=== PATIENT | female | born 1995 | race Caucasian/White ===

== ENCOUNTER 2016-07-10 23:48 | Emergency (ER) | payer SELFPAY ==
[2016-07-11 00:03] VITALS: TEMP 98.1
[2016-07-11] MEDS ORDERED: SODIUM CHLORIDE 0.9% 1,000 ML IV STA (00:23)
--- NOTE | 2016-07-11 00:25 | ED ---
General Adult HPI - General Chief complaint: Arrhythmia/Palpitations Stated complaint: Palpitations/Arm Numbness Time Seen by Provider: 07/11/16 00:11 Source: patient, RN notes reviewed Mode of arrival: ambulatory - History of Present Illness Initial comments: Patient 19-year-old female who presents emergency room today with a chief complaint of palpitations over the last 2 days. She does admit that she's had some symptoms in the past but is never lasted as long or has had them as often. She states that she does have palpitations periodically throughout the day. She states last anywhere from a few seconds to minutes at a time. States that she's noticed some numbness and tingling to her hands bilaterally also down to her feet bilaterally. She states his symptoms also off and on over the last few days it's been occurring more often. She denies any difficulty breathing or shortness of breath. She denies any pain. She denies any other complaints or symptoms. Patient denies any recent fever, chills, shortness of breath, back pain, abdominal pain, nausea or vomiting, numbness or tingling, dysuria or hematuria, constipation or diarrhea, headaches or visual changes, or any other complaints. - Related Data Home Medications Medication Instructions Recorded Confirmed No Known Home Medications [No 07/11/16 07/11/16 Known Home Medications] Allergies Allergy/AdvReac Type Severity Reaction Status Date / Time No Known Allergies Allergy Verified 07/11/16 00:03 Review of Systems ROS Statement: Those systems with pertinent positive or pertinent negative responses have been documented in the HPI. ROS Other: All systems not noted in ROS Statement are negative. Past Medical History Past Medical History: Asthma History of Any Multi-Drug Resistant Organisms: None Reported Past Surgical History: No Surgical Hx Reported Past Psychological History: Anxiety, Depression Smoking Status: Heavy tobacco smoker Past Alcohol Use History: None Reported Past Drug Use History: Marijuana General Exam - General Exam Comments Initial Comments: General: The patient is awake and alert, in no distress, and does not appear acutely ill. Eye: Pupils are equal, round and reactive to light, extra-ocular movements are intact. No nystagmus. There is normal conjunctiva bilaterally. No signs of icterus. Ears, nose, mouth and throat: There are moist mucous membranes and no oral lesions. Neck: The neck is supple, there is no tenderness or JVD. Cardiovascular: There is a regular rate and rhythm. No murmur, rub or gallop is appreciated. Respiratory: Lungs are clear to auscultation, respirations are non-labored, breath sounds are equal. No wheezes, stridor, rales, or rhonchi. Gastrointestinal: Soft, non-distended, non-tender abdomen without masses or organomegaly noted. There is no rebound or guarding present. No CVA tenderness. Bowel sounds are unremarkable. Musculoskeletal: Normal ROM, no tenderness. Strength 5/5. Sensation intact. Pulses equal bilaterally 2+. Neurological: A&O x 3. CN II-XII intact, There are no obvious motor or sensory deficits. Coordination appears grossly intact. Speech is normal. Skin: Skin is warm and dry and no rashes or lesions are noted. Psychiatric: Cooperative, appropriate mood & affect, normal judgment. Course Vital Signs 07/10/16 07/11/16 23:58 01:03 Temperature 98.1 F Pulse Rate 85 Pulse Rate [ 75 Right Radial] Respiratory 16 Rate Blood Pressure 98/62 O2 Sat by Pulse 100 Oximetry EKG Findings - EKG Comments: EKG Findings:: EKG is performed at 013: A 12-lead EKG was performed and interpreted by me as showing the following: Rate is 70, and rhythm is normal sinus. There are normal QRS complexes and normal R-wave progression. ST segments have no elevation or depression, and CT segments appear normal. Medical Decision Making - Medical Decision Making Patient reexamined at this time shows no signs of distress. Patient resting comfortably in the stretcher. Denies any pain. Denies palpitations. Denies any numbness or tingling at this time. Patient labs been reviewed are unremarkable. Negative cardiac enzymes. Patient's EKG shows normal sinus rhythm. Patient advised follow-up family doctor over the next 2 days. Advised to discuss possible Holter monitor advised to increase her oral fluids. Advised return to emergency room if any symptoms increase worsen or for any other concerns. - Lab Data Result diagrams: 07/11/16 00:35 07/11/16 00:35 Lab Results 07/11/16 07/11/16 07/11/16 Range/Units 00:35 00:35 00:35 WBC 9.9 (3.8-10.6) k/uL RBC 4.26 (3.80-5.40) m/uL Hgb 13.5 (11.4-16.0) gm/dL Hct 40.2 (34.0-46.0) % MCV 94.3 (80.0-100.0) fL MCH 31.6 (25.0-35.0) pg MCHC 33.5 (31.0-37.0) g/dL RDW 12.2 (11.5-15.5) % Plt Count 208 (150-450) k/uL Neutrophils % 58 % Lymphocytes % 32 % Monocytes % 6 % Eosinophils % 2 % Basophils % 1 % Neutrophils # 5.7 (1.3-7.7) k/uL Lymphocytes # 3.1 (1.0-4.8) k/uL Monocytes # 0.5 (0-1.0) k/uL Eosinophils # 0.2 (0-0.7) k/uL Basophils # 0.1 (0-0.2) k/uL Sodium 139 (137-145) mmol/L Potassium 3.9 (3.5-5.1) mmol/L Chloride 106 (98-107) mmol/L Carbon Dioxide 26 (22-30) mmol/L Anion Gap 7 mmol/L BUN 13 (7-17) mg/dL Creatinine 0.60 (0.52-1.04) mg/dL Est GFR (MDRD) Af Amer >60 (>60 ml/min/1.73 sqM) Est GFR (MDRD) Non-Af >60 (>60 ml/min/1.73 sqM) Glucose 86 (74-99) mg/dL Calcium 9.3 (8.4-10.2) mg/dL Total Bilirubin 0.4 (0.2-1.3) mg/dL AST 22 (14-36) U/L ALT 41 (9-52) U/L Alkaline Phosphatase 62 (38-126) U/L Troponin I <0.012 (0.000-0.034) ng/mL Total Protein 6.6 (6.3-8.2) g/dL Albumin 4.0 (3.5-5.0) g/dL Disposition Clinical Impression: Palpitations Disposition: HOME SELF-CARE Condition: Good Instructions: Palpitations (ED) Additional Instructions: Please use medication as discussed. Please follow-up with family doctor in the next 2 days of symptoms have not improved. Please return to emergency room if the symptoms increase or worsen or for any other concerns. Time of Disposition: 01:37
[2016-07-11 00:52] LABS: Basophils # (A) 0.1 k/uL (0-0.2); Basophils % (A) 1 %; CH 31.8; CHCM 33.8; Eosinophils # (A) 0.2 k/uL (0-0.7); Eosinophils % (A) 2 %; HCT 40.2 % (34.0-46.0); HGB 13.5 gm/dL (11.4-16.0); Luc # (Auto) 0.23; Luc % (Auto) 2; Lymphocytes # (A) 3.1 k/uL (1.0-4.8); Lymphocytes % (A) 32 %; MCH 31.6 pg (25.0-35.0); MCHC 33.5 g/dL (31.0-37.0); MCV 94.3 fL (80.0-100.0); Mean Platelet Volume 7.3; Monocytes # (A) 0.5 k/uL (0-1.0); Monocytes % (A) 6 %; Neutrophils # (A) 5.7 k/uL (1.3-7.7); Neutrophils % (A) 58 %; RBC 4.26 m/uL (3.80-5.40); RDW 12.2 % (11.5-15.5); WBC 9.9 k/uL (3.8-10.6); WBC (Perox) 10.53
[2016-07-11 01:00] LABS: ALT 41 U/L (9-52); AST 22 U/L (14-36); Alkaline Phosphatase 62 U/L (38-126); Anion Gap 7 mmol/L; Blood Urea Nitrogen 13 mg/dL (7-17); Calcium 9.3 mg/dL (8.4-10.2); Carbon Dioxide 26 mmol/L (22-30); Chloride 106 mmol/L (98-107); Glucose 86 mg/dL (74-99); Non-African American GFR(MDRD) >60 (>60 ml/min/1.73 sqM); Potassium 3.9 mmol/L (3.5-5.1); Sodium 139 mmol/L (137-145); Total Bilirubin 0.4 mg/dL (0.2-1.3); Total Protein 6.6 g/dL (6.3-8.2)
--- NOTE | 2016-07-11 01:12 | XR ---
EXAM: XR Chest, 2 Views. CLINICAL HISTORY: Reason: palpitations for 2 days, numbness to bialteral hands and feet, bilateral nipple peircing infection and bilateral foot pain no injury TECHNIQUE: Frontal and lateral views of the chest. COMPARISON: None FINDINGS: Hardware: None. Lungs/pleura: Normal. No focal consolidation. No pleural effusion or pneumothorax. Heart/mediastinum: Normal. No cardiomegaly. Soft tissues: Unremarkable. Bones: No acute fracture. Upper abdomen: Normal. IMPRESSION: Normal exam.
[2016-07-11 01:45] VITALS: BP 93/47; PULSE 89; RESP 18
== END 2016-07-11 01:45 | disposition home or self-care (01) ==
LOC: EC 23:48
DX: R00.2 Palpitations (principal); R20.0 Anesthesia of skin; F17.200 Nicotine dependence, unspecified, uncomplicated
CPT/HCPCS: 36415; 71020; 80053; 84484; 85025; 93005; 96360; 99285

== ENCOUNTER → 2016-10-01 | Outpatient (CLI) | payer OTHER ==
--- NOTE | 2016-10-01 13:20 | US ---
EXAMINATION TYPE: US gallbladder DATE OF EXAM: 10/01/2016 COMPARISON: NONE CLINICAL HISTORY: Abdominal pain R10.84, N63 Breast Lump. EXAM MEASUREMENTS: Liver Length: 13.7 cm Gallbladder Wall: 0.3 cm CBD: 0.3 cm Right Kidney: 13.6 x 5.1 x 5.4 cm Pancreas: Tail obscured by overlying bowel gas Liver: homogeneous Gallbladder: thickened wall, with polyps: patient stated 1/[address] through exam that she had eaten zulema za 30 minutes before Evidence for sonographic Bell's sign: no CBD: wnl Right Kidney: No hydronephrosis, large cyst ( 8.8 x 6.5 x 6.5 cm) upper pole and 3.8 x 2.4 x 3.0 cm cyst lower pole Left kidney scanned for comparison; no hydronephrosis, small 1 cm cortical cyst upper pole Limited views of the pancreas are unremarkable. The liver is normal in size without biliary dilatation. There are several small polyps within the gallbladder. Gallbladder wall thickness is 3 mm which is up per limits of normal. The distal common hepatic duct measures 3 mm. There is a large, simple appearing 8.8 x 6.5 cm cyst in the upper pole and a 3.8 cm simple appearing cyst in the right lower pole. Visualized portions of aorta and IVC are unremarkable. IMPRESSION: 1. POLYPS WITHIN THE GALLBLADDER WITH A THICKENED GALLBLADDER WALL. 2. SIMPLE APPEARING RIGHT RENAL CYSTS.
--- NOTE | 2016-10-01 14:04 | USB ---
Reason for exam: clinical finding. History: Benign US breast aspiration single LT of the left breast, June 25, 2015. Indicated problem(s): palpable abnormality in the left breast. Physical Findings: Nurse did not find any significant physical abnormalities on exam. US Breast LT Left breast ultrasound includes all four quadrants, the retroareolar region and axilla. Finding demonstrates no cystic or solid lesion seen. These results were verbally communicated with the patient and result sheet given to the patient on 10/01/16. ASSESSMENT: Negative, BI-RAD 1 RECOMMENDATION: Clinical management of the left breast. Manage patient on a clinical basis.
== END | disposition home or self-care (01) ==
LOC: RADUSMAIN 11:47
PROVIDERS: ATTEND Surgery Plastic and Reconstructive Surgery
DX: K82.4 Cholesterolosis of gallbladder (principal); N28.1 Cyst of kidney, acquired; N63 Unspecified lump in breast
CPT/HCPCS: 76705

== ENCOUNTER → 2016-10-16 | Outpatient (CLI) | payer OTHER ==
--- NOTE | 2016-10-16 15:12 | NM ---
Nuclear medicine hepatobiliary scan. HISTORY: Pain. The patient received 8 ounces of ensure plus and 5.3 mCi of Technetium 99m Choletec. There is normal hepatic extraction. The gallbladder is seen by 20 minutes. There is biliary to john l clearance by 30 minutes. Ejection fraction is 64%. IMPRESSION: 1. Normal hepatobiliary exam
== END | disposition home or self-care (01) ==
LOC: RADNMMAIN 12:52
PROVIDERS: ATTEND Surgery Plastic and Reconstructive Surgery
DX: R10.84 Generalized abdominal pain (principal)
CPT/HCPCS: 78226; A9537

== ENCOUNTER 2019-03-21 19:57 | Emergency (ER) | payer OTHER ==
[2019-03-21 20:12] VITALS: RESP 18
[2019-03-21] MEDS ORDERED: SODIUM CHLORIDE 0.9% 1,000 ML IV STA (21:06)
[2019-03-21 21:18] LABS: Basophils % (A) 0 %; Eosinophils # (A) 0.2 k/uL (0-0.7); Eosinophils % (A) 2 %; HCT 46.4 % (34.0-46.0); HGB 15.7 gm/dL (11.4-16.0); Lymphocytes # (A) 3.6 k/uL (1.0-4.8); Lymphocytes % (A) 27 %; MCH 32.3 pg (25.0-35.0); MCHC 33.9 g/dL (31.0-37.0); MCV 95.3 fL (80.0-100.0); Mean Platelet Volume 8.1; Monocytes # (A) 0.7 k/uL (0-1.0); Monocytes % (A) 6 %; Neutrophils # (A) 8.4 k/uL (1.3-7.7); Neutrophils % (A) 63 %; Platelet Count 265 k/uL (150-450); RBC 4.87 m/uL (3.80-5.40); RDW 11.8 % (11.5-15.5); WBC 13.2 k/uL (3.8-10.6)
[2019-03-21 21:21] LABS: Appearance,Urine Cloudy (Clear); Bilirubin,Urine Negative (Negative); Blood,Urine Small (Negative); Budding Yeast,Urine Rare /hpf; Color,Urine Light Yellow; Glucose,Urine (UA) Negative (Negative); Ketones,Urine Negative (Negative); Leukocyte Esterase,Urine Small (Negative); Mucus,Urine Rare /hpf; Nitrite,Urine Negative (Negative); PH, Urine 6.5 (5.0-8.0); Protein,Urine Negative (Negative); RBC,Urine 3 /hpf (0-5); Specific Gravity,Urine 1.005 (1.001-1.035); Squamous Epithelial Cell,Urine 5 /hpf (0-4); Urobilinogen,Urine <2.0 mg/dL (<2.0); WBC,Urine 2 /hpf (0-5)
[2019-03-21 21:26] LABS: Partial Thromboplastin Time 26.4 sec (22.0-30.0); Prothrombin Time 10.4 sec (9.0-12.0)
[2019-03-21 21:27] LABS: ALT 11 U/L (9-52); AST 18 U/L (14-36); African American GFR (CKD) >90 (>60 ml/min/1.73 sqM); Albumin 4.3 g/dL (3.5-5.0); Alkaline Phosphatase 59 U/L (38-126); Anion Gap 9 mmol/L; Blood Urea Nitrogen 8 mg/dL (7-17); Calcium 9.6 mg/dL (8.4-10.2); Carbon Dioxide 23 mmol/L (22-30); Chloride 109 mmol/L (98-107); Glucose 63 mg/dL (74-99); Magnesium 2.1 mg/dL (1.6-2.3); Non-African American GFR(CKD) >90 (>60 ml/min/1.73 sqM); Potassium 3.4 mmol/L (3.5-5.1); Sodium 141 mmol/L (137-145); Total Bilirubin 0.3 mg/dL (0.2-1.3)
[2019-03-21 21:31] LABS: Amphetamine Screen,Urine Detected (NotDetected); Barbiturate Screen,Urine Not Detected (NotDetected); Benzodiazepines Screen,Urine Not Detected (NotDetected); Cocaine Screen,Urine Not Detected (NotDetected); Methadone Screen, Urine Not Detected (NotDetected); Opiate Screen,Urine Detected (NotDetected); Oxycodone Screen, Urine Detected (NotDetected); Phencyclidine Screen,Urine Not Detected (NotDetected); Tricyclic Antidepressant,Urine Not Detected (NotDetected); Urn Cannabinoid Scrn Detected (NotDetected)
--- NOTE | 2019-03-21 21:31 | XR ---
EXAMINATION TYPE: XR chest 2V DATE OF EXAM: 03/21/2019 COMPARISON: 07/11/2016 HISTORY: Chest pain TECHNIQUE: Frontal and lateral views of the chest are obtained. FINDINGS: There is no focal air space opacity. No evidence for pneumothorax. No pleural effusion. The cardiac silhouette size is within normal limits. The osseous structures are grossly intact. IMPRESSION: 1. No acute cardiopulmonary process.
[2019-03-21] MEDS ORDERED: LORazepam 1 MG TAB PO STA (21:51)
[2019-03-21] MEDS ORDERED: POTASSIUM CHLORIDE ER 20 MEQ TAB.ER PO STA (21:55)
--- NOTE | 2019-03-21 22:17 | ED ---
Arrhythmia/Palpitations HPI - General Chief Complaint: Arrhythmia/Palpitations Stated Complaint: Dehyrdation, racing heart Time Seen by Provider: 03/21/19 20:25 Source: patient Mode of arrival: ambulatory Limitations: no limitations - History of Present Illness Initial Comments: 23-year-old female patient presents to the emergency department today for ev aluation of palpitations. Patient states that she's been having issues with palpitations over the last 4-5 days. Patient states that she'll have feeling like racing heart and then her chest becomes tight. States that she did get dizzy with this. She has been feeling very shaky and nervous. She does admit to using methamphetamine, states she last used on . Patient has been seen at 2 different facilities for similar symptoms over the last 3-4 days. She denies any nausea or vomiting. Denies history of similar symptoms. Patient denies any recent rash, fever, chills, abdominal pain, nausea, vomiting, diarrhea, constipation, back pain, numbness, tingling, hematuria, dysuria, urinary urgency, urinary frequency, headache, visual changes, or any other complaints. - Related Data Home Medications Medication Instructions Recorded Confirmed Albuterol Sulfate [Proair Hfa] 2 puff INHALATION RT-Q6H PRN 03/21/19 03/21/19 Ergocalciferol [Vitamin D2] 50,000 unit PO MO 03/21/19 03/21/19 Methocarbamol [Robaxin] 750 mg PO BID 03/21/19 03/21/19 traMADol HCL 50 mg PO BID PRN 03/21/19 03/21/19 Allergies Allergy/AdvReac Type Severity Reaction Status Date / Time No Known Allergies Allergy Verified 03/21/19 21:40 Review of Systems ROS Statement: Those systems with pertinent positive or pertinent negative responses have been documented in the HPI. ROS Other: All systems not noted in ROS Statement are negative. Past Medical History Past Medical History: Asthma Additional Past Medical History / Comment(s): chiari malformation History of Any Multi-Drug Resistant Organisms: None Reported Past Surgical History: No Surgical Hx Reported Past Psychological History: Anxiety, Depression Smoking Status: Heavy tobacco smoker Past Alcohol Use History: None Reported Past Drug Use History: Marijuana, Methamphetamine General Exam Limitations: no limitations General appearance: alert, in no apparent distress, other (This is a well- developed, well-nourished adult female patient in no acute distress. Vital signs upon presentation are temperature 98.6F, pulse 111, respirations 18, blood pressure 135/85, pulse ox 100% on room air.) Eye exam: Present: normal appearance, PERRL, EOMI. Absent: scleral icterus, conjunctival injection, periorbital swelling ENT exam: Present: normal exam, normal oropharynx, mucous membranes moist Respiratory exam: Present: normal lung sounds bilaterally. Absent: respiratory distress, wheezes, rales, rhonchi, stridor Cardiovascular Exam: Present: regular rate, normal rhythm, normal heart sounds. Absent: systolic murmur, diastolic murmur, rubs, gallop, clicks GI/Abdominal exam: Present: soft, normal bowel sounds. Absent: distended, tenderness, guarding, rebound, rigid Neurological exam: Present: alert, oriented X3, CN II-XII intact Psychiatric exam: Present: normal affect, normal mood Skin exam: Present: warm, dry, intact, normal color. Absent: rash Course Vital Signs 03/21/19 03/21/19 03/21/19 20:10 20:12 22:28 Temperature 98.6 F 98.8 F 98.7 F Pulse Rate 111 H 84 80 Respiratory 18 18 18 Rate Blood Pressure 135/85 103/77 106/72 O2 Sat by Pulse 100 98 100 Oximetry EKG Findings - EKG Comments: EKG Findings:: EKG obtained at 2021 shows sinus rhythm with marked sinus arrhythmia. Ventricular rate is 94, P return of a 120, QRS duration 98, QT 354, QTC 442. No evidence of ST elevation or depression. Medical Decision Making - Medical Decision Making 23-year-old female patient presents to the emergency department today for evalua tion of palpitations. Physical examination was unremarkable. Labs reviewed and did reveal white blood cell count at 13.2. Potassium 3.4, a drug screen was positive for opiates, oxycodone, amphetamines, methamphetamines, and marijuana. EKG showed sinus rhythm with sinus arrhythmia. Cardiac monitoring was reviewed, patient had no ectopy or abnormal rhythms while in the department. I did discuss possibility that symptoms are caused by polysubstance abuse. We did discuss findings with her primary care physician and discussing heart monitoring. Return parameters were discussed in detail. She verbalizes understanding and agrees with this plan. - Lab Data Result diagrams: 03/21/19 20:58 03/21/19 20:58 Lab Results 03/21/19 03/21/19 03/21/19 Range/Units 20:58 20:58 20:58 WBC 13.2 H (3.8-10.6) k/uL RBC 4.87 (3.80-5.40) m/uL Hgb 15.7 (11.4-16.0) gm/dL Hct 46.4 H (34.0-46.0) % MCV 95.3 (80.0-100.0) fL MCH 32.3 (25.0-35.0) pg MCHC 33.9 (31.0-37.0) g/dL RDW 11.8 (11.5-15.5) % Plt Count 265 (150-450) k/uL Neutrophils % 63 % Lymphocytes % 27 % Monocytes % 6 % Eosinophils % 2 % Basophils % 0 % Neutrophils # 8.4 H (1.3-7.7) k/uL Lymphocytes # 3.6 (1.0-4.8) k/uL Monocytes # 0.7 (0-1.0) k/uL Eosinophils # 0.2 (0-0.7) k/uL Basophils # 0.0 (0-0.2) k/uL PT (9.0-12.0) sec INR (<1.2) APTT (22.0-30.0) sec Sodium 141 (137-145) mmol/L Potassium 3.4 L (3.5-5.1) mmol/L Chloride 109 H (98-107) mmol/L Carbon Dioxide 23 (22-30) mmol/L Anion Gap 9 mmol/L BUN 8 (7-17) mg/dL Creatinine 0.52 (0.52-1.04) mg/dL Est GFR (CKD-EPI)AfAm >90 (>60 ml/min/1.73 sqM) Est GFR (CKD-EPI)NonAf >90 (>60 ml/min/1.73 sqM) Glucose 63 L (74-99) mg/dL Calcium 9.6 (8.4-10.2) mg/dL Magnesium 2.1 (1.6-2.3) mg/dL Total Bilirubin 0.3 (0.2-1.3) mg/dL AST 18 (14-36) U/L ALT 11 (9-52) U/L Alkaline Phosphatase 59 (38-126) U/L Troponin I (0.000-0.034) ng/mL Total Protein 7.0 (6.3-8.2) g/dL Albumin 4.3 (3.5-5.0) g/dL TSH 0.941 (0.465-4.680) mIU/L Urine Color Light Yellow Urine Appearance Cloudy H (Clear) Urine pH 6.5 (5.0-8.0) Ur Specific Cosmos 1.005 (1.001-1.035) Urine Protein Negative (Negative) Urine Glucose (UA) Negative (Negative) Urine Ketones Negative (Negative) Urine Blood Small H (Negative) Urine Nitrite Negative (Negative) Urine Bilirubin Negative (Negative) Urine Urobilinogen <2.0 (<2.0) mg/dL Ur Leukocyte Esterase Small H (Negative) Urine RBC 3 (0-5) /hpf Urine WBC 2 (0-5) /hpf Ur Squamous Epith Cells 5 H (0-4) /hpf Urine Mucus Rare H (None) /hpf Urine Yeast (Budding) Rare H (None) /hpf Urine HCG, Qual (Not Detectd) Urine Opiates Screen Detected H (NotDetected) Ur Oxycodone Screen Detected H (NotDetected) Urine Methadone Screen Not Detected (NotDetected) Ur Propoxyphene Screen Not Detected (NotDetected) Ur Barbiturates Screen Not Detected (NotDetected) U Tricyclic Antidepress Not Detected (NotDetected) Ur Phencyclidine Scrn Not Detected (NotDetected) Ur Amphetamines Screen Detected H (NotDetected) U Methamphetamines Scrn Detected H (NotDetected) U Benzodiazepines Scrn Not Detected (NotDetected) Urine Cocaine Screen Not Detected (NotDetected) U Marijuana (THC) Screen Detected H (NotDetected) 03/21/19 03/21/19 03/21/19 Range/Units 20:58 20:58 20:58 WBC (3.8-10.6) k/uL RBC (3.80-5.40) m/uL Hgb (11.4-16.0) gm/dL Hct (34.0-46.0) % MCV (80.0-100.0) fL MCH (25.0-35.0) pg MCHC (31.0-37.0) g/dL RDW (11.5-15.5) % Plt Count (150-450) k/uL Neutrophils % % Lymphocytes % % Monocytes % % Eosinophils % % Basophils % % Neutrophils # (1.3-7.7) k/uL Lymphocytes # (1.0-4.8) k/uL Monocytes # (0-1.0) k/uL Eosinophils # (0-0.7) k/uL Basophils # (0-0.2) k/uL PT 10.4 (9.0-12.0) sec INR 1.0 (<1.2) APTT 26.4 (22.0-30.0) sec Sodium (137-145) mmol/L Potassium (3.5-5.1) mmol/L Chloride (98-107) mmol/L Carbon Dioxide (22-30) mmol/L Anion Gap mmol/L BUN (7-17) mg/dL Creatinine (0.52-1.04) mg/dL Est GFR (CKD-EPI)AfAm (>60 ml/min/1.73 sqM) Est GFR (CKD-EPI)NonAf (>60 ml/min/1.73 sqM) Glucose (74-99) mg/dL Calcium (8.4-10.2) mg/dL Magnesium (1.6-2.3) mg/dL Total Bilirubin (0.2-1.3) mg/dL AST (14-36) U/L ALT (9-52) U/L Alkaline Phosphatase (38-126) U/L Troponin I <0.012 (0.000-0.034) ng/mL Total Protein (6.3-8.2) g/dL Albumin (3.5-5.0) g/dL TSH (0.465-4.680) mIU/L Urine Color Urine Appearance (Clear) Urine pH (5.0-8.0) Ur Specific Cosmos (1.001-1.035) Urine Protein (Negative) Urine Glucose (UA) (Negative) Urine Ketones (Negative) Urine Blood (Negative) Urine Nitrite (Negative) Urine Bilirubin (Negative) Urine Urobilinogen (<2.0) mg/dL Ur Leukocyte Esterase (Negative) Urine RBC (0-5) /hpf Urine WBC (0-5) /hpf Ur Squamous Epith Cells (0-4) /hpf Urine Mucus (None) /hpf Urine Yeast (Budding) (None) /hpf Urine HCG, Qual Not Detected (Not Detectd) Urine Opiates Screen (NotDetected) Ur Oxycodone Screen (NotDetected) Urine Methadone Screen (NotDetected) Ur Propoxyphene Screen (NotDetected) Ur Barbiturates Screen (NotDetected) U Tricyclic Antidepress (NotDetected) Ur Phencyclidine Scrn (NotDetected) Ur Amphetamines Screen (NotDetected) U Methamphetamines Scrn (NotDetected) U Benzodiazepines Scrn (NotDetected) Urine Cocaine Screen (NotDetected) U Marijuana (THC) Screen (NotDetected) - Radiology Data Radiology results: report reviewed, image reviewed Two-view x-ray of the chest is obtained. Report was reviewed in its entirety. Impression by Dr. Minor shows no acute cardio pulmonary process. Disposition Clinical Impression: Polysubstance abuse, Palpitations Disposition: HOME SELF-CARE Condition: Good Instructions (If sedation given, give patient instructions): Heart Palpitations (ED), Polysubstance Abuse (ED) Additional Instructions: Follow-up with her primary care physician for recheck in 1-2 days. Discussed heart monitoring. Return to the emergency department immediately for any new, worsening, or concerning symptoms. Is patient prescribed a controlled substance at d/c from ED?: No Referrals: Ramu Villa MD [Primary Care Provider] - 1-2 days Time of Disposition: 22:17
[2019-03-21 22:29] VITALS: BP 106/72; PULSE 80; TEMP 98.7
== END 2019-03-21 22:29 | disposition home or self-care (01) ==
LOC: EC 19:57
DX: F19.10 Other psychoactive substance abuse, uncomplicated (principal); R00.2 Palpitations; F17.200 Nicotine dependence, unspecified, uncomplicated; Z79.899 Other long term (current) drug therapy
CPT/HCPCS: 36415; 71046; 80053; 80306; 81001; 81025; 83735; 84443; 84484; 85025; 85610; 85730; 96360; 99285

== ENCOUNTER → 2020-04-10 | Outpatient (CLI) | payer OTHER ==
[2020-04-10 16:07] LABS: African American GFR (CKD) >90 (>60 ml/min/1.73 sqM); Blood Urea Nitrogen 11 mg/dL (7-17); Non-African American GFR(CKD) >90 (>60 ml/min/1.73 sqM)
--- NOTE | 2020-04-11 08:55 | CT ---
EXAMINATION TYPE: CT abdomen wo/w con DATE OF EXAM: 04/10/2020 COMPARISON: Ultrasound 10/01/2016 HISTORY: 24 year-old female with renal cyst, N28.1 TECHNIQUE: Contiguous axial scanning of the abdomen is performed before and after administration of 1 00 ml Isovue 300 IV contrast. Delayed images through the kidneys and coronal/sagittal reconstruction s performed. CT DLP: 786.7 mGycm Automated exposure control for dose reduction was used. FINDINGS: Heart normal size without pericardial effusion. Lung bases clear without pleural effusion. Liver borderline in size at 17.3 cm. There is some focal fat along the anterior falciform ligament. P ortal venous system is patent. No biliary ductal dilatation. Adrenal glands, spleen, and pancreas appear within normal limits. 1.1 cm upper to mid pole hypodensity and tiny 5 mm cortical hypodensity mid to lower pole left kidney too small for accurate CT characterization, likely tiny cortical cysts. Within the right kidney, there is a very large 9.7 cm simple cyst (measured on coronal series), incre ased in size from 2017 where it measured 8.8 cm. In addition, there is a lobulated, multilocular cyst with thin internal septations exophytic from the lower pole measuring up to 6.2 cm craniocaudal by 4.2 cm wide by 3.9 cm AP (axial series 7 image 43 and coronal series 14 image 44). This is increased in size from 3.8 cm in 2017. The large upper pole cyst has a significant clot sign stretching the renal parenchyma. No dilated small bowel, free fluid, or free air. No mesenteric or retroperitoneal lymphadenopathy. Scattered mild stool. No pericolonic inflammatory change. Pelvis is not imaged. Bones: Mild degenerative disc disease L5-S1 and also within the lower thoracic spine. IMPRESSION: 1. A 9.7 CM SIMPLE CYST OF THE UPPER POLE OF THE RIGHT KIDNEY. THIS LARGE CYST HAS INCREASED IN SIZE FROM 8.8 CM IN 2017 AND STRETCHES THE ADJACENT RENAL PARENCHYMA. CORRELATE FOR ANY LOCAL SYMPTOMS FRO M MASS EFFECT. 2. A LOBULATED, MULTILOCULAR CYST EXOPHYTIC FROM THE LOWER POLE OF THE RIGHT KIDNEY MEASURING 6.2 CM VERSUS 3.8 CM ON 2017. THIS IS A B[place] CATEGORY IIF CYST. GUIDELINES RECOMMEND 6 AND 12 MONTH FOLLO W-UP MRI THEN YEARLY FOR 5 YEARS.
== END | disposition home or self-care (01) ==
LOC: RADCTMAIN 15:31
PROVIDERS: ATTEND Urology
DX: Q61.02 Congenital multiple renal cysts (principal)
CPT/HCPCS: 82565; 84520; 74170; 36415; Q9967

== ENCOUNTER → 2020-05-03 | Day surgery (SDC) | payer OTHER ==
[2020-04-30 12:06] VITALS: BMI 27.4
[~2020-05-03] MED LIST: HYDROmorphone 0.5 MG/0.5 ML SYRINGE IVP PRN; LACTATED RINGERS 1,000 ML IV SCH; LIDOCAINE 1% (10MG/ML) FOR IV START INTRADERMA PRN; MIDAZOLAM 2 MG/2 ML VIAL IV PRN; ONDANSETRON 4 MG/2 ML VIAL IVP ONE
[2020-05-03 10:44] VITALS: BP 113/72; PULSE 88; RESP 16; TEMP 97.9
== END ==
LOC: OR 09:53
PROVIDERS: ATTEND Urology
DX: N28.1 Cyst of kidney, acquired (principal); Z53.8 Procedure and treatment not carried out for other reasons

== ENCOUNTER 2020-08-08 06:01 | Observation (INO) | payer OTHER ==
[2020-08-01 12:15] VITALS: BMI 25.7
--- NOTE | 2020-08-07 17:12 | P.HPIHPCON ---
History of Present Illness H&P Date: 08/07/20 Chief Complaint: right renal cyst Ms Hale is a 24 yo female with symptomatic flank pain has hx of a 9.7 cm right upper pole renal cyst causing mass effect on the kidney. Discussed with her the cyst could be contributing to her pain, discussed the option of robotic cyst decortication. discussed the risk of bleeding, infection and injury to the kidney which could result in nephrectomy. I also discussed with her the potential of injury to nearby organs. I discussed with her potential of recurrence and potential her pain might not resolve even with cyst removal. In addition to her upper pole cyst she also has a lower pole cyst, review by radiology inducated it's Bosniak IIF, but review of image it appears to be more of a two adjacent cysts rather than a complex cyst. Discussed with her given her age and review of image, the potential of malignancy is fairly low. Discussed if intraopeartively the cyst appears benign we can consider performing cyst decortication on the lower pole cyst. But discussed with her if it's malignant then there is potential of spillage of tumor cells. She understood all risks and agreed to proceed with robotic cyst decortication on right upper pole cyst possible on the lower pole cyst. Consent for Procedure: I have explained the operation/procedure to the patient, including the risks, benefits, side effects, alternative therapies (including not receiving the proposed treatment or service), the likelihood of the patient achieving his/her goals, and potential recuperation problems for the procedure/sedation/analgesia, as well as any blood products, if indicated. I also explained to the patient the risks, benefits and side effects of the alternatives, as well as the risks related to not receiving the proposed procedure, care, treatment, or services. - Constitutional Constitutional: Denies chills, Denies fever - Cardiovascular Cardiovascular: Denies chest pain, Denies shortness of breath - Respiratory Respiratory: Denies cough, Denies 7 Past Medical History Past Medical History: Asthma, Musculoskeletal Disorder Additional Past Medical History / Comment(s): chiari malformation, diverticulitis, DDD, herniated lumbar disc., receives toradol injections, states hx of palpitations, cysts on kidney. History of Any Multi-Drug Resistant Organisms: None Reported Past Surgical History: No Surgical Hx Reported Additional Past Surgical History / Comment(s): wisdom teeth removed Past Anesthesia/Blood Transfusion Reactions: Family History of Problems w/ Anesthesia Additional Past Anesthesia/Blood Transfusion Reaction / Comment(s): no anesthesia hx. emotional when waking up after wisdom teeth. Patients Mother gets PONV and combative. Past Psychological History: ADD/ADHD, Anxiety, Depression, Panic Disorder, PTSD Smoking Status: Current every day smoker Past Alcohol Use History: None Reported Additional Past Alcohol Use History / Comment(s): 1ppd since age of 7 Past Drug Use History: Marijuana Additional Drug Use History / Comment(s): daily use - Past Family History Mother Family Medical History: No Reported History Medications and Allergies Home Medications Medication Instructions Recorded Confirmed Type Albuterol Sulfate [Proair Hfa] 2 puff INHALATION RT-Q6H PRN 03/21/19 08/01/20 History Fluticasone/Salmeterol [Advair 1 inhalation PO BID PRN 04/30/20 08/01/20 History 100-50 Diskus] HYDROcodone/APAP 5-325MG [[place] 1 tab PO TID PRN 04/30/20 08/01/20 History 5-325] tiZANidine HCL [Zanaflex] 4 mg PO BID PRN 04/30/20 08/01/20 History Ergocalciferol [Vitamin D2 (1250 1,250 mcg PO WEEKLY 08/01/20 08/01/20 History Mcg = 82821 Iu)] Lisdexamfetamine Dimesylate 20 mg PO QAM 08/01/20 08/01/20 History [Vyvanse] QUEtiapine [SEROquel] 50 mg PO HS 08/01/20 08/01/20 History Sertraline HCl [Zoloft] 100 mg PO HS 08/01/20 08/01/20 History rOPINIRole HCL [Requip] 2 mg PO HS 08/01/20 08/01/20 History Allergies Allergy/AdvReac Type Severity Reaction Status Date / Time No Known Allergies Allergy Verified 08/01/20 11:32 Surgical - Exam - General well developed, well nourished, no distress, no pain - Eyes PERRL, normal ocular movement - Respiratory normal expansion, normal respiratory effort Assessment and Plan Assessment: 25-year-old female with history of right-sided renal cyst -Or for robotic right-sided renal cyst decortication
[~2020-08-08 06:01] MED LIST changes: +DEXAMETHASONE SOD PHOSPHATE 4 MG/ML 1 ML VIAL IV ONE; -LIDOCAINE 1% (10MG/ML) FOR IV START INTRADERMA PRN; -MIDAZOLAM 2 MG/2 ML VIAL IV PRN
[2020-08-08] MEDS ORDERED: MIDAZOLAM 2 MG/2 ML VIAL IVP ONE (07:24)
[2020-08-08] MEDS ORDERED: fentaNYL (PF) 50 MCG/ML 2 ML AMP IVP ONE (07:26)
[2020-08-08 07:32] LABS: Basophils # (A) 0.1 k/uL (0-0.2); Basophils % (A) 1 %; Eosinophils # (A) 0.2 k/uL (0-0.7); Eosinophils % (A) 2 %; HCT 41.7 % (34.0-46.0); HGB 14.4 gm/dL (11.4-16.0); Lymphocytes # (A) 3.6 k/uL (1.0-4.8); Lymphocytes % (A) 34 %; MCH 32.4 pg (25.0-35.0); MCHC 34.4 g/dL (31.0-37.0); MCV 94.3 fL (80.0-100.0); Mean Platelet Volume 7.8; Monocytes # (A) 0.7 k/uL (0-1.0); Monocytes % (A) 7 %; Neutrophils # (A) 5.9 k/uL (1.3-7.7); Neutrophils % (A) 55 %; Platelet Count 229 k/uL (150-450); RBC 4.43 m/uL (3.80-5.40); RDW 11.7 % (11.5-15.5); WBC 10.7 k/uL (3.8-10.6)
[2020-08-08] MEDS ORDERED: ROPIVACAINE 5 MG/ML 30 ML VIAL ONE (07:41)
[2020-08-08] MEDS ORDERED: SUCCINYLCHOLINE CHLORIDE 100 MG/5 ML SYR IV ONE (07:41)
[2020-08-08] MEDS ORDERED: NEOSTIGMINE 1 MG/ML 10 ML VIAL ONE (07:41)
[2020-08-08] MEDS ORDERED: PROPOFOL 10 MG/ML 20 ML VIAL IV ONE (07:41)
[2020-08-08] MEDS ORDERED: DEXAMETHASONE SOD PHOSPHATE 4 MG/ML 1 ML VIAL ONE (07:41)
[2020-08-08] MEDS ORDERED: SODIUM CHLORIDE 0.9% (PF) 10 ML VIAL ONE (07:41)
[2020-08-08] MEDS ORDERED: LIDOCAINE 1% INJ 10MG/ML (20 ML MDV) ONE (07:41)
[2020-08-08] MEDS ORDERED: MIDAZOLAM 2 MG/2 ML VIAL ONE (07:41)
[2020-08-08] MEDS ORDERED: HYDROmorphone (PF) 1 MG/ML ONE (07:41)
[2020-08-08] MEDS ORDERED: fentaNYL (PF) 50 MCG/ML 2 ML AMP ONE (07:41)
[2020-08-08] MEDS ORDERED: GLYCOPYRROLATE 0.2 MG/ML 2 ML VIAL ONE (07:41)
[2020-08-08] MEDS ORDERED: PHENYLEPHRINE-0.9% NACL SYG 1,000 MCG/10 ML SYRINGE ONE (07:41)
[2020-08-08] MEDS ORDERED: ROCURONIUM 10 MG/ML (5 ML VIAL) IV ONE (07:41)
[2020-08-08 07:42] LABS: African American GFR (CKD) >90 (>60 ml/min/1.73 sqM); Anion Gap 7 mmol/L; Blood Urea Nitrogen 13 mg/dL (7-17); Calcium 9.1 mg/dL (8.4-10.2); Carbon Dioxide 23 mmol/L (22-30); Chloride 111 mmol/L (98-107); Glucose 85 mg/dL (74-99); Non-African American GFR(CKD) >90 (>60 ml/min/1.73 sqM); Potassium 3.7 mmol/L (3.5-5.1); Sodium 141 mmol/L (137-145)
[2020-08-08] MEDS ORDERED: BUPIVACAINE-EPI 0.5%-1:200,000 10 ML VIAL SQ ONE (07:44)
[2020-08-08] MEDS ORDERED: LACTATED RINGERS 1,000 ML IV ONE (08:17)
--- NOTE | 2020-08-08 08:35 | P.ANPRN ---
Procedure Note - Anesthesia - Nerve Block Performed Bilateral Erector Spinae Single Time Out Performed: Yes Date of Procedure: 08/08/20 Procedure Start Time: : Procedure Stop Time: : Location of Patient: PreOp Indication: Requested by Surgeon Specifically requested for management of pain by DrDel: Dario Noel Sedation Type: Sedate with meaningful contact maintained Preparation: Sterile Prep Position: Prone Needle Types: Pajunk Needle Gauge: 21 Ultrasound used to visualize needle placement: Yes Ultrasound used to observe medication spread: Yes Injectate: 0.5% Ropivacaine (see comment for volume) (15 ml + 15 ml 0.9% NS + dexamethason 4 mg per side) Blood Aspirated: No Pain Paresthesia on Injection Noted: No Resistance on Injection: Normal Image Stored and Saved: Yes Events: Uneventful and Well Tolerated
[2020-08-08] MEDS ORDERED: tiZANidine 4 MG TAB PO PRN (10:26)
--- NOTE | 2020-08-08 10:26 | P.OP ---
Date of Procedure: 08/08/20 Preoperative Diagnosis: Right Renal cyst Postoperative Diagnosis: Same Procedure(s) Performed: Robotic-assisted laparoscopic cyst decortication Implants: none Anesthesia: NAYA Surgeon: Dario Noel Crop Supervisor #1: Bianka Ward Estimated Blood Loss (ml): 100 Pathology: other (Right upper pole renal cyst wall, right lower pole renal cyst wall) Condition: stable Disposition: PACU Indications for Procedure: Ms Hale is a 24 yo female with symptomatic flank pain has hx of a 9.7 cm right upper pole renal cyst causing mass effect on the kidney. Discussed with her the cyst could be contributing to her pain, discussed the option of robotic cyst decortication. discussed the risk of bleeding, infection and injury to the kidney which could result in nephrectomy. I also discussed with her the potential of injury to nearby organs. I discussed with her potential of recurrence and potential her pain might not resolve even with cyst removal. In addition to her upper pole cyst she also has a lower pole cyst, review by radiology inducated it's Bosniak IIF, but review of image it appears to be more of a two adjacent cysts rather than a complex cyst. Discussed with her given her age and review of image, the potential of malignancy is fairly low. Discussed if intraopeartively the cyst appears benign we can consider performing cyst decortication on the lower pole cyst. But discussed with her if it's malignant then there is potential of spillage of tumor cells. She understood all risks and agreed to proceed with robotic cyst decortication on right upper pole cyst possible on the lower pole cyst. Operative Findings: Large upper pole right-sided renal cyst, multiloculated lower pole cyst Description of Procedure: The patient was taken to the operating room . General anesthesia was induced. She was prepped and draped in sterile fashion, and was placed in modified flank position . All pressure points were padded. The abdominal insufflation was achieved with the Veress needle. A 8 mm camera port was placed. Robotic trocars and front desk assistant ports were placed under direct vision. a 5 mm liver retractor was placed. The robot was docked into place. Of note the liver was adherent to the upper pole of the kidney, liver was dissected off the kidney to better expose the cysti wall. The colon was mobilized medially by incising along the white line of Toldt. This time the right upper pole anterior cyst was visualized, intravenous/was dissected off the cyst wall. Next an incision was made in the cyst the cyst was drained, the cyst wall was excised and sent to pathology. The edges of the cyst were cauterized. A small parenchymal tear was appreciated, and this was repaired with a 2-0V lock using the sliding clip technique. Attention was then carried to the lower pole cyst, the gerota was dissected off the cyst. Of note the cyst was multiloculated, and incision was made in the cysts and cyst fluid was drained, cyst wall was excised and sent to pathology. Hemostatic agent was placed near the parenchymal tear in the upper pole. Fascia was closed using 0 Vicryl using the Nigel Gonzalez. Skin was closed with subcuticular sutures and dermabond. The patient was awoken from general anesthesia in stable condition. Please refer to the final pathology report for final diagnosis.
[2020-08-08] MEDS ORDERED: D5-0.45% NACL WITH KCL 20MEQ/L 1,000 ML IV SCH (10:30)
[2020-08-08] MEDS: MEPERIDINE 50 MG/ML SYRINGE IVP ONE ×2 (10:43→11:29)
[2020-08-08] MEDS: KETOROLAC 15 MG/ML 1 ML VIAL IVP SCH ×3 (11:19→23:16)
[2020-08-08] MEDS ORDERED: diphenhydrAMINE 50 MG/ML 1 ML VIAL IVP ONE (11:33)
[2020-08-08] MEDS: D5-0.45% NACL WITH KCL 20MEQ/L 1,000 ML IV SCH ×2 (13:21→20:24)
[2020-08-08] MEDS: HEPARIN SODIUM,PORCINE/PF 5,000 UNIT/0.5 ML SYRINGE SQ SCH ×2 (15:08→23:16)
[2020-08-08] MEDS: HYDROcodone/APAP 5-325MG 1 EACH TAB PO PRN ×2 (15:08→20:25)
[2020-08-08] MEDS: MORPHINE SULFATE 4 MG/ML SYRINGE IVP PRN ×3 (15:59→22:01)
[2020-08-08] MEDS: HYDROmorphone 1 MG/ML 1 ML SYRINGE IVP PRN (22:59)
[2020-08-08] MEDS: QUEtiapine 50 MG TAB PO SCH (23:16)
[2020-08-09] MEDS: HYDROmorphone 1 MG/ML 1 ML SYRINGE IVP PRN ×7 (01:58→21:25)
[2020-08-09] MEDS: SERTRALINE 100 MG TAB PO SCH ×3 (02:57→22:46)
[2020-08-09] MEDS: HYDROcodone/APAP 5-325MG 1 EACH TAB PO PRN ×4 (03:48→19:35)
[2020-08-09] MEDS: D5-0.45% NACL WITH KCL 20MEQ/L 1,000 ML IV SCH ×2 (03:53→20:08)
[2020-08-09] MEDS: KETOROLAC 15 MG/ML 1 ML VIAL IVP SCH ×3 (05:55→18:19)
[2020-08-09 06:20] LABS: Basophils % (A) 0 %; Eosinophils % (A) 0 %; HCT 33.4 % (34.0-46.0); HGB 11.8 gm/dL (11.4-16.0); Lymphocytes # (A) 2.5 k/uL (1.0-4.8); Lymphocytes % (A) 16 %; MCH 33.4 pg (25.0-35.0); MCHC 35.2 g/dL (31.0-37.0); MCV 94.7 fL (80.0-100.0); Monocytes % (A) 6 %; Neutrophils % (A) 77 %; Platelet Count 214 k/uL (150-450); RBC 3.53 m/uL (3.80-5.40); RDW 11.7 % (11.5-15.5); WBC 15.7 k/uL (3.8-10.6)
[2020-08-09 06:45] LABS: African American GFR (CKD) >90 (>60 ml/min/1.73 sqM); Anion Gap 4 mmol/L; Blood Urea Nitrogen 7 mg/dL (7-17); Calcium 8.6 mg/dL (8.4-10.2); Carbon Dioxide 25 mmol/L (22-30); Chloride 106 mmol/L (98-107); Glucose 118 mg/dL (74-99); Non-African American GFR(CKD) >90 (>60 ml/min/1.73 sqM); Potassium 3.8 mmol/L (3.5-5.1); Sodium 135 mmol/L (137-145)
[2020-08-09] MEDS: ALBUTEROL HFA INHALER INHALATION PRN (09:13)
[2020-08-09] MEDS: HEPARIN SODIUM,PORCINE/PF 5,000 UNIT/0.5 ML SYRINGE SQ SCH ×2 (10:15→16:04)
--- NOTE | 2020-08-09 12:47 | P.PN ---
Progress Note - Text Progress Note Date: 08/09/20 Still having right abdominal/ flank pain requiring IV pain meds. Denies any N/V. Has not passed flatus. Exam Abdomen soft nondistended, tenderness along the RUQ/Flank A/P S/P robotic assisted laproscopic cyst decortication -Continue pain medications -Ambulate -Repeat labs in am
[2020-08-09] MEDS: SULFAMETHOX-TMP 800-160MG 1 EACH TAB PO SCH (19:31)
[2020-08-09] MEDS: QUEtiapine 50 MG TAB PO SCH (21:25)
[2020-08-10] MEDS: KETOROLAC 15 MG/ML 1 ML VIAL IVP SCH ×3 (00:42→12:05)
[2020-08-10] MEDS: HEPARIN SODIUM,PORCINE/PF 5,000 UNIT/0.5 ML SYRINGE SQ SCH ×5 (00:42→23:27)
[2020-08-10] MEDS: HYDROmorphone 1 MG/ML 1 ML SYRINGE IVP PRN ×7 (00:43→21:29)
[2020-08-10] MEDS: D5-0.45% NACL WITH KCL 20MEQ/L 1,000 ML IV SCH ×3 (03:13→18:26)
[2020-08-10] MEDS: HYDROcodone/APAP 5-325MG 1 EACH TAB PO PRN ×2 (04:17→20:24)
[2020-08-10 06:48] LABS: Basophils % (A) 0 %; Eosinophils # (A) 0.2 k/uL (0-0.7); Eosinophils % (A) 2 %; HCT 25.1 % (34.0-46.0); Lymphocytes # (A) 2.8 k/uL (1.0-4.8); Lymphocytes % (A) 37 %; MCH 32.9 pg (25.0-35.0); MCHC 34.5 g/dL (31.0-37.0); MCV 95.3 fL (80.0-100.0); Mean Platelet Volume 8.1; Monocytes # (A) 0.6 k/uL (0-1.0); Monocytes % (A) 8 %; Neutrophils % (A) 52 %; Platelet Count 159 k/uL (150-450); RBC 2.63 m/uL (3.80-5.40); RDW 11.8 % (11.5-15.5); WBC 7.7 k/uL (3.8-10.6)
[2020-08-10 06:54] LABS: HGB 8.7 gm/dL (11.4-16.0)
[2020-08-10] MEDS: SULFAMETHOX-TMP 800-160MG 1 EACH TAB PO SCH ×2 (10:48→21:34)
[2020-08-10 11:47] LABS: Basophils % (A) 1 %; Eosinophils # (A) 0.2 k/uL (0-0.7); Eosinophils % (A) 2 %; HCT 25.7 % (34.0-46.0); HGB 8.8 gm/dL (11.4-16.0); Lymphocytes # (A) 2.5 k/uL (1.0-4.8); Lymphocytes % (A) 31 %; MCH 32.9 pg (25.0-35.0); MCHC 34.4 g/dL (31.0-37.0); MCV 95.7 fL (80.0-100.0); Mean Platelet Volume 8.7; Monocytes # (A) 0.6 k/uL (0-1.0); Monocytes % (A) 7 %; Neutrophils # (A) 4.7 k/uL (1.3-7.7); Neutrophils % (A) 59 %; Platelet Count 170 k/uL (150-450); RBC 2.68 m/uL (3.80-5.40); RDW 11.8 % (11.5-15.5); WBC 8.1 k/uL (3.8-10.6)
--- NOTE | 2020-08-10 12:44 | P.PN ---
Progress Note - Text Progress Note Date: 08/10/20 Pain with improved. Denies any N/V. passed flatus. Hgb dropped to 8.7 from 11.8, repeat CBC is 8.8. echymosis along the right inguinal region and labia. NO flank ecchymosis. Exam Abdomen soft nondistended, mild tenderness along the RUQ/Flank Echymosis along the right inguinal region and labia. A/P S/P robotic assisted laproscopic cyst decortication -Continue pain medications -Bed rest, will hold Heparin -Continue to trend CBC
[2020-08-10] MEDS: methocarbamoL 750 MG TAB PO SCH ×3 (13:00→23:27)
[2020-08-10] MEDS: ALBUTEROL HFA INHALER INHALATION PRN (13:02)
[2020-08-10] MEDS: NICOTINE 21MG/24HR PATCH TRANSDERM SCH (16:35)
[2020-08-10 21:16] LABS: Basophils % (A) 0 %; Eosinophils # (A) 0.2 k/uL (0-0.7); Eosinophils % (A) 2 %; HCT 27.7 % (34.0-46.0); HGB 9.6 gm/dL (11.4-16.0); Lymphocytes # (A) 2.3 k/uL (1.0-4.8); Lymphocytes % (A) 31 %; MCH 33.1 pg (25.0-35.0); MCHC 34.6 g/dL (31.0-37.0); MCV 95.8 fL (80.0-100.0); Mean Platelet Volume 7.8; Monocytes # (A) 0.5 k/uL (0-1.0); Monocytes % (A) 6 %; Neutrophils # (A) 4.4 k/uL (1.3-7.7); Neutrophils % (A) 58 %; Platelet Count 190 k/uL (150-450); RBC 2.89 m/uL (3.80-5.40); RDW 11.8 % (11.5-15.5); WBC 7.5 k/uL (3.8-10.6)
[2020-08-10] MEDS: QUEtiapine 50 MG TAB PO SCH (21:34)
[2020-08-11] MEDS: HYDROmorphone 1 MG/ML 1 ML SYRINGE IVP PRN ×3 (00:30→09:03)
[2020-08-11] MEDS: HYDROcodone/APAP 5-325MG 1 EACH TAB PO PRN ×3 (05:55→13:59)
[2020-08-11 08:35] VITALS: RESP 18
[2020-08-11] MEDS: ALBUTEROL HFA INHALER INHALATION PRN (08:46)
[2020-08-11] MEDS: D5-0.45% NACL WITH KCL 20MEQ/L 1,000 ML IV SCH ×3 (08:55→09:18)
[2020-08-11] MEDS: SULFAMETHOX-TMP 800-160MG 1 EACH TAB PO SCH (08:56)
[2020-08-11] MEDS: methocarbamoL 750 MG TAB PO SCH ×2 (08:56→15:03)
[2020-08-11] MEDS: HEPARIN SODIUM,PORCINE/PF 5,000 UNIT/0.5 ML SYRINGE SQ SCH ×2 (08:56→14:30)
[2020-08-11] MEDS: NICOTINE 21MG/24HR PATCH TRANSDERM SCH (08:56)
--- NOTE | 2020-08-11 12:59 | P.DS ---
Providers Date of admission: 08/08/20 23:39 Attending physician: Dario Noel MD Primary care physician: [facility] Course: This is a 25 yo female with hx of multiple renal cysts. She is symptomatic secondary to her renal cysts. She underwent robotic assisted cyst decortication on 08/08. She was admitted to the floor post operatively. Patient hgb trended down to 8.7 from 11.6, on exam she had evidence of port site hematoma along the RLQ tracking down to the groin. Her hgb remained stable on POD #2 and POD #3. She was discharged home on POD #3. At time of discharge she was tolerating a diet, ambulating, hemodynamically stable and pain was controlled Plan - Discharge Summary Discharge Rx Participant: Yes New Discharge Prescriptions: New RX: Ibuprofen 600 mg PO Q8H #30 tab oxyCODONE HCL/ACETAMINOPHEN [Percocet 5-325 mg] 1 tab PO Q6HR PRN 3 Days #10 tab PRN Reason: Pain No Action Albuterol Sulfate [Proair Hfa] 2 puff INHALATION RT-Q6H PRN PRN Reason: Shortness Of Breath HYDROcodone/APAP 5-325MG [[place] 5-325] 1 tab PO TID PRN PRN Reason: Pain Fluticasone/Salmeterol [Advair 100-50 Diskus] 1 inhalation PO BID PRN PRN Reason: Dyspnea tiZANidine HCL [Zanaflex] 4 mg PO BID PRN PRN Reason: Muscle Spasm Sertraline HCl [Zoloft] 100 mg PO HS QUEtiapine [SEROquel] 50 mg PO HS Lisdexamfetamine Dimesylate [Vyvanse] 20 mg PO QAM Ergocalciferol [Vitamin D2 (1250 Mcg = 17120 Iu)] 1,250 mcg PO WEEKLY rOPINIRole HCL [Requip] 2 mg PO HS Discharge Medication List Albuterol Sulfate [Proair Hfa] 2 puff INHALATION RT-Q6H PRN 03/21/19 [History] Fluticasone/Salmeterol [Advair 100-50 Diskus] 1 inhalation PO BID PRN 04/30/20 [History] HYDROcodone/APAP 5-325MG [[place] 5-325] 1 tab PO TID PRN 04/30/20 [History] tiZANidine HCL [Zanaflex] 4 mg PO BID PRN 04/30/20 [History] Ergocalciferol [Vitamin D2 (1250 Mcg = 78609 Iu)] 1,250 mcg PO WEEKLY 08/01/20 [History] Lisdexamfetamine Dimesylate [Vyvanse] 20 mg PO QAM 08/01/20 [History] QUEtiapine [SEROquel] 50 mg PO HS 08/01/20 [History] Sertraline HCl [Zoloft] 100 mg PO HS 08/01/20 [History] rOPINIRole HCL [Requip] 2 mg PO HS 08/01/20 [History] RX: Ibuprofen 600 mg PO Q8H #30 tab 08/11/20 [Rx] oxyCODONE HCL/ACETAMINOPHEN [Percocet 5-325 mg] 1 tab PO Q6HR PRN 3 Days #10 tab 08/11/20 [Rx]
[2020-08-11 14:30] VITALS: BP 106/68; PULSE 93; TEMP 98.6
== END 2020-08-11 15:35 | disposition home or self-care (01) ==
LOC: OR 06:01 → 6PED 10:33 → OR 23:39 → 6PED 23:39
PROVIDERS: ADMIT Urology; ATTEND Urology
DX: N28.1 Cyst of kidney, acquired (principal); J45.909 Unspecified asthma, uncomplicated; K57.90 Diverticulosis of intestine, part unspecified, without perforation or abscess without bleeding; Q07.00 Arnold-Chiari syndrome without spina bifida or hydrocephalus; M51.26 Other intervertebral disc displacement, lumbar region; F90.9 Attention-deficit hyperactivity disorder, unspecified type; F41.0 Panic disorder [episodic paroxysmal anxiety]; F32.9 Major depressive disorder, single episode, unspecified; F43.10 Post-traumatic stress disorder, unspecified; F17.200 Nicotine dependence, unspecified, uncomplicated; Z79.891 Long term (current) use of opiate analgesic; Z79.51 Long term (current) use of inhaled steroids; Z79.899 Other long term (current) drug therapy; Z84.89 Family history of other specified conditions
CPT/HCPCS: 50541; S2900; 64999; 76942; 80048; 81025; 85025; 86850; 86900; 86901; 87635; 88305; 94640

== ENCOUNTER 2020-08-13 08:09 | Emergency (ER) | payer OTHER ==
[2020-08-13 08:22] VITALS: TEMP 98
[2020-08-13] MEDS ORDERED: HYDROmorphone 0.5 MG/0.5 ML SYRINGE IVP STA (08:51)
--- NOTE | 2020-08-13 09:05 | ED ---
Abdominal Pain HPI - General Chief Complaint: Abdominal Pain Stated Complaint: post kidney surgery/pain Time Seen by Provider: 08/13/20 08:22 Source: patient Mode of arrival: wheelchair Limitations: no limitations - History of Present Illness Initial Comments: 25 year old female presenting for chief complaint of right side and back pain. Patient states that she recently had a right renal cyst removed by Dr. Noel. Patient states that she has had significant pain since and had some complications following the surgery involving low hemoglobin. Patient states that yesterday she tripped and fell she states she has no bruises but has some increased flank and back pain. Denies pain with deep breath, hemoptysis, leg swelling, chest pain, dyspnea. Patient denies noting blood in her urine. She denies any fevers chills night sweats or general malaise. Patient states that since her discharge her pain has been almost intolerable and thus she came to the ER for further evaluation. Upon arrival patient appears well and nontoxic she is now she is in no distress. - Related Data Home Medications Medication Instructions Recorded Confirmed Albuterol Sulfate [Proair Hfa] 2 puff INHALATION RT-Q6H PRN 03/21/19 08/13/20 Fluticasone/Salmeterol [Advair 1 puff INHALATION RT-BID PRN 04/30/20 08/13/20 100-50 Diskus] HYDROcodone/APAP 5-325MG [[place] 1 tab PO TID PRN 04/30/20 08/13/20 5-325] tiZANidine HCL [Zanaflex] 4 mg PO BID PRN 04/30/20 08/13/20 Ergocalciferol [Vitamin D2 (1250 1,250 mcg PO [place] 08/01/20 08/13/20 Mcg = 84653 Iu)] Lisdexamfetamine Dimesylate 20 mg PO DAILY 08/01/20 08/13/20 [Vyvanse] QUEtiapine [SEROquel] 50 mg PO HS 08/01/20 08/13/20 Sertraline HCl [Zoloft] 100 mg PO HS 08/01/20 08/13/20 rOPINIRole HCL [Requip] 2 mg PO HS 08/01/20 08/13/20 Naproxen 500 mg PO BID PRN 08/13/20 08/13/20 QUEtiapine [SEROquel] 25 mg PO HS PRN 08/13/20 08/13/20 Varenicline [Chantix Continuing 1 mg PO DAILY 08/13/20 08/13/20 Pack] Previous Rx's Medication Instructions Recorded oxyCODONE HCL/ACETAMINOPHEN 1 tab PO Q6HR PRN 3 Days #10 tab 08/11/20 [Percocet 5-325 mg] Allergies Allergy/AdvReac Type Severity Reaction Status Date / Time No Known Allergies Allergy Verified 08/13/20 11:25 Review of Systems ROS Statement: Those systems with pertinent positive or pertinent negative responses have been documented in the HPI. ROS Other: All systems not noted in ROS Statement are negative. Past Medical History Past Medical History: Asthma, Musculoskeletal Disorder Additional Past Medical History / Comment(s): chiari malformation, diverticulitis, DDD, herniated lumbar disc., receives toradol injections, states hx of palpitations, cysts on kidney. History of Any Multi-Drug Resistant Organisms: None Reported Past Surgical History: No Surgical Hx Reported Additional Past Surgical History / Comment(s): wisdom teeth removed Past Anesthesia/Blood Transfusion Reactions: Family History of Problems w/ Anesthesia Additional Past Anesthesia/Blood Transfusion Reaction / Comment(s): no anesthesia hx. emotional when waking up after wisdom teeth. Patients Mother gets PONV and combative. Past Psychological History: ADD/ADHD, Anxiety, Depression, Panic Disorder, PTSD Smoking Status: Current every day smoker Past Alcohol Use History: None Reported Past Drug Use History: Marijuana - Past Family History Mother Family Medical History: No Reported History General Exam - General Exam Comments Initial Comments: General: The patient is awake and alert, in no distress Eye: +3 mm pupils are equal, round and reactive to light, extra-ocular movements are intact. No nystagmus. There is normal conjunctiva bilaterally. No signs of icterus. Ears, nose, mouth and throat: There are moist mucous membranes and no oral lesions. Neck: The neck is supple, there is no tenderness or JVD. Cardiovascular: There is a regular rate and rhythm. No murmur, rub or gallop is appreciated. Respiratory: Lungs are clear to auscultation, respirations are non-labored, breath sounds are equal. No wheezes, stridor, rales, or rhonchi. Gastrointestinal: No flank bruising or ecchymosis. Soft, non-distended, non- tender abdomen without masses or organomegaly noted. There is no rebound or guarding present. Musculoskeletal: Normal ROM, no tenderness. Strength 5/5. Sensation intact. Radial and DP pulses equal bilaterally 2+. Neurological: A&O x 3. CN II-XII intact grossly, There are no obvious motor or sensory deficits. Coordination appears grossly intact. Speech is normal. Skin: Skin is warm and dry and no rashes or lesions are noted. Psychiatric: Cooperative, appropriate mood & affect, normal judgment. Limitations: no limitations Course Vital Signs 08/13/20 08/13/20 08:18 11:26 Temperature 98 F Pulse Rate 115 H 97 Respiratory 20 18 Rate Blood Pressure 124/80 109/66 O2 Sat by Pulse 100 97 Oximetry Medical Decision Making - Medical Decision Making HgB increasing. No flank ecchymosis, or midline tenderness, some mild rib pain right sided to palpation. CT (-) for rib fracture, osseous process. Findings in volving the abdomen discussed with Dr. Noel who reviewed CT and states the findings are expected post surgical, do no appear trauma related/unusual and he is agreeable to pain control and discharge with f/u next week in office. Pt agreeable, more comfortable and was discharged appearing well. - Lab Data Result diagrams: 08/13/20 08:42 08/13/20 08:42 Lab Results 08/13/20 08/13/20 08/13/20 Range/Units 08:42 08:42 08:42 WBC 12.5 H (3.8-10.6) k/uL RBC 3.45 L (3.80-5.40) m/uL Hgb 10.9 L (11.4-16.0) gm/dL Hct 32.5 L (34.0-46.0) % MCV 94.3 (80.0-100.0) fL MCH 31.7 (25.0-35.0) pg MCHC 33.6 (31.0-37.0) g/dL RDW 12.4 (11.5-15.5) % Plt Count 310 (150-450) k/uL MPV 7.7 Neutrophils % 74 % Lymphocytes % 17 % Monocytes % 5 % Eosinophils % 2 % Basophils % 0 % Neutrophils # 9.3 H (1.3-7.7) k/uL Lymphocytes # 2.2 (1.0-4.8) k/uL Monocytes # 0.6 (0-1.0) k/uL Eosinophils # 0.3 (0-0.7) k/uL Basophils # 0.0 (0-0.2) k/uL Sodium 138 (137-145) mmol/L Potassium 4.0 (3.5-5.1) mmol/L Chloride 106 (98-107) mmol/L Carbon Dioxide 23 (22-30) mmol/L Anion Gap 9 mmol/L BUN 17 (7-17) mg/dL Creatinine 0.65 (0.52-1.04) mg/dL Est GFR (CKD-EPI)AfAm >90 (>60 ml/min/1.73 sqM) Est GFR (CKD-EPI)NonAf >90 (>60 ml/min/1.73 sqM) Glucose 108 H (74-99) mg/dL Plasma Lactic Acid [place] (0.7-2.0) mmol/L Calcium 9.4 (8.4-10.2) mg/dL Total Bilirubin 0.6 (0.2-1.3) mg/dL AST 26 (14-36) U/L ALT 21 (4-34) U/L Alkaline Phosphatase 70 (38-126) U/L Total Protein 7.3 (6.3-8.2) g/dL Albumin 4.2 (3.5-5.0) g/dL Amylase 56 (30-110) U/L Lipase 58 (23-300) U/L Urine Color Yellow Urine Appearance Cloudy H (Clear) Urine pH 6.5 (5.0-8.0) Ur Specific [place] 1.032 (1.001-1.035) Urine Protein 1+ H (Negative) Urine Glucose (UA) Negative (Negative) Urine Ketones Negative (Negative) Urine Blood Moderate H (Negative) Urine Nitrite Negative (Negative) Urine Bilirubin Negative (Negative) Urine Urobilinogen 2.0 (<2.0) mg/dL Ur Leukocyte Esterase Small H (Negative) Urine RBC 109 H (0-5) /hpf Urine WBC 4 (0-5) /hpf Ur Squamous Epith Cells 20 H (0-4) /hpf Amorphous Sediment Rare H (None) /hpf Urine Mucus Occasional H (None) /hpf Urine Yeast (Budding) Rare H (None) /hpf Urine HCG, Qual (Not Detectd) 08/13/20 08/13/20 Range/Units 08:42 08:42 WBC (3.8-10.6) k/uL RBC (3.80-5.40) m/uL Hgb (11.4-16.0) gm/dL Hct (34.0-46.0) % MCV (80.0-100.0) fL MCH (25.0-35.0) pg MCHC (31.0-37.0) g/dL RDW (11.5-15.5) % Plt Count (150-450) k/uL MPV Neutrophils % % Lymphocytes % % Monocytes % % Eosinophils % % Basophils % % Neutrophils # (1.3-7.7) k/uL Lymphocytes # (1.0-4.8) k/uL Monocytes # (0-1.0) k/uL Eosinophils # (0-0.7) k/uL Basophils # (0-0.2) k/uL Sodium (137-145) mmol/L Potassium (3.5-5.1) mmol/L Chloride (98-107) mmol/L Carbon Dioxide (22-30) mmol/L Anion Gap mmol/L BUN (7-17) mg/dL Creatinine (0.52-1.04) mg/dL Est GFR (CKD-EPI)AfAm (>60 ml/min/1.73 sqM) Est GFR (CKD-EPI)NonAf (>60 ml/min/1.73 sqM) Glucose (74-99) mg/dL Plasma Lactic Acid [place] 1.2 (0.7-2.0) mmol/L Calcium (8.4-10.2) mg/dL Total Bilirubin (0.2-1.3) mg/dL AST (14-36) U/L ALT (4-34) U/L Alkaline Phosphatase (38-126) U/L Total Protein (6.3-8.2) g/dL Albumin (3.5-5.0) g/dL Amylase (30-110) U/L Lipase (23-300) U/L Urine Color Urine Appearance (Clear) Urine pH (5.0-8.0) Ur Specific [place] (1.001-1.035) Urine Protein (Negative) Urine Glucose (UA) (Negative) Urine Ketones (Negative) Urine Blood (Negative) Urine Nitrite (Negative) Urine Bilirubin (Negative) Urine Urobilinogen (<2.0) mg/dL Ur Leukocyte Esterase (Negative) Urine RBC (0-5) /hpf Urine WBC (0-5) /hpf Ur Squamous Epith Cells (0-4) /hpf Amorphous Sediment (None) /hpf Urine Mucus (None) /hpf Urine Yeast (Budding) (None) /hpf Urine HCG, Qual Not Detected (Not Detectd) Disposition Clinical Impression: Post-operative pain Disposition: HOME SELF-CARE Condition: Good Instructions (If sedation given, give patient instructions): Flank Pain (ED) Additional Instructions: Please use medication as discussed. Please follow-up with family doctor in the next [address] Noel next week (call to scheduled an appointment) Please return to emergency room if the symptoms increase or worsen or for any other concerns. Is patient prescribed a controlled substance at d/c from ED?: No Referrals: Raquel Mclean PAC [Family Provider] - 1-2 days Dario Noel MD [STAFF PHYSICIAN] - 1-2 days Time of Disposition: 11:44
[2020-08-13 09:10] LABS: Basophils % (A) 0 %; Eosinophils # (A) 0.3 k/uL (0-0.7); Eosinophils % (A) 2 %; HCT 32.5 % (34.0-46.0); HGB 10.9 gm/dL (11.4-16.0); Lymphocytes # (A) 2.2 k/uL (1.0-4.8); Lymphocytes % (A) 17 %; MCH 31.7 pg (25.0-35.0); MCHC 33.6 g/dL (31.0-37.0); MCV 94.3 fL (80.0-100.0); Mean Platelet Volume 7.7; Monocytes # (A) 0.6 k/uL (0-1.0); Monocytes % (A) 5 %; Neutrophils # (A) 9.3 k/uL (1.3-7.7); Neutrophils % (A) 74 %; Platelet Count 310 k/uL (150-450); RBC 3.45 m/uL (3.80-5.40); RDW 12.4 % (11.5-15.5); WBC 12.5 k/uL (3.8-10.6)
[2020-08-13 09:27] LABS: ALT 21 U/L (4-34); AST 26 U/L (14-36); African American GFR (CKD) >90 (>60 ml/min/1.73 sqM); Albumin 4.2 g/dL (3.5-5.0); Alkaline Phosphatase 70 U/L (38-126); Amylase 56 U/L (30-110); Anion Gap 9 mmol/L; Blood Urea Nitrogen 17 mg/dL (7-17); Calcium 9.4 mg/dL (8.4-10.2); Carbon Dioxide 23 mmol/L (22-30); Chloride 106 mmol/L (98-107); Glucose 108 mg/dL (74-99); Lipase 58 U/L (23-300); Non-African American GFR(CKD) >90 (>60 ml/min/1.73 sqM); Sodium 138 mmol/L (137-145); Total Bilirubin 0.6 mg/dL (0.2-1.3); Total Protein 7.3 g/dL (6.3-8.2)
[2020-08-13 09:39] LABS: Amorphous Sediment,Urine Rare /hpf; Appearance,Urine Cloudy (Clear); Bilirubin,Urine Negative (Negative); Blood,Urine Moderate (Negative); Budding Yeast,Urine Rare /hpf; Color,Urine Yellow; Glucose,Urine (UA) Negative (Negative); Ketones,Urine Negative (Negative); Leukocyte Esterase,Urine Small (Negative); Mucus,Urine Occasional /hpf; Nitrite,Urine Negative (Negative); PH, Urine 6.5 (5.0-8.0); Protein,Urine 1+ (Negative); RBC,Urine 109 /hpf (0-5); Specific Gravity,Urine 1.032 (1.001-1.035); Squamous Epithelial Cell,Urine 20 /hpf (0-4); WBC,Urine 4 /hpf (0-5)
--- NOTE | 2020-08-13 11:11 | CT ---
EXAMINATION TYPE: CT ChestAbdPelvis w con DATE OF EXAM: 08/13/2020 COMPARISON: 04/10/2020 HISTORY: Fall, side pain with recent surgery CT DLP: 852.7 mGycm CONTRAST: CT scan of the chest, abdomen and pelvis is performed without Oral Contrast and with IV Contrast, pat ient injected with 100 ml mL of Isovue 300. CT Chest: LUNGS: The lungs are clear and free of infiltrate or atelectasis. No pulmonary nodule or mass is det ected. No pleural effusion or CT evidence of interstitial lung disease. MEDIASTINUM: Thoracic aorta is of normal caliber. The heart is not enlarged. No evidence for media stinal mass or adenopathy. HILAR STRUCTURES: No evidence for mass. No hilar adenopathy is appreciated. OTHER: No significant abnormality. CONTRAST CT ABDOMEN AND PELVIS FINDINGS: LIVER/GB: No calcified gallstones. No space occupying hepatic lesion. Biliary tree is of normal ca liber. No hepatic laceration seen. PANCREAS: No inflammation. No distinct mass. SPLEEN: No splenic enlargement. No lesion seen. No splenic laceration. ADRENALS: No nodule. No thickening. KIDNEYS/BLADDER: At the site of prior of simple right renal cyst there is now a 6.5 x 6.2 cm collecti on with internal foci of air which may reflect postsurgical seroma however infected collection or hem orrhagic collection is not excluded. There is adjacent intermediate density fluid noted adjacent to t he hepatic edge. Left kidney is free of laceration. There is cystic change of the left kidney unchang ed from prior study. BOWEL: Normal appendix. Normal bowel caliber. No inflammation. GENITAL ORGANS: No gross abnormality. LYMPH NODES: No greater than 1cm abdominal or pelvic lymph nodes are appreciated. AORTA: No significant abnormality. OSSEOUS STRUCTURES: No significant abnormality is seen. OTHER: There are a few tiny foci of air within the abdomen presumably from recent surgery. There is s ubcutaneous air identified. Fluid is seen within the pelvis with Hounsfield unit measurement ranging from 20 through approximatel y 60. IMPRESSION: 1. At the site of prior of simple right renal cyst there is now a 6.5 x 6.2 cm collection with sport intern al foci of air which may reflect postsurgical seroma however infected collection or hemorrhagic colle ction is not excluded. There is adjacent intermediate density fluid noted adjacent to the hepatic edg e. 2.There are a few tiny foci of air within the abdomen presumably from recent surgery. There is subcut aneous air identified. 3. Fluid within the pelvis is presumably from recent surgery hemoperitoneum difficult to exclude. No evidence for solid organ.
[2020-08-13 11:27] VITALS: BP 109/66; PULSE 97; RESP 18
[2020-08-13] MEDS ORDERED: HYDROmorphone 1 MG/ML 1 ML SYRINGE IVP STA (11:35)
== END 2020-08-13 12:02 | disposition home or self-care (01) ==
LOC: EC 08:09
DX: G89.18 Other acute postprocedural pain (principal); F17.200 Nicotine dependence, unspecified, uncomplicated; F32.9 Major depressive disorder, single episode, unspecified; J45.909 Unspecified asthma, uncomplicated; F12.90 Cannabis use, unspecified, uncomplicated; W01.0XXA Fall on same level from slipping, tripping and stumbling without subsequent striking against object, initial encounter
CPT/HCPCS: 36415; 93005; 80053; 82150; 83605; 83690; 85025; 81001; 81025; 71260; 74177; 99284; 96374; 96376; J1170 ×2; Q9967

== ENCOUNTER 2020-08-17 19:47 | Emergency (ER) | payer OTHER ==
[2020-08-17 19:51] VITALS: RESP 18; TEMP 97.9
--- NOTE | 2020-08-17 20:09 | ED ---
General Adult HPI - General Chief complaint: Back Pain/Injury Stated complaint: post op pain Time Seen by Provider: 08/17/20 19:56 Source: patient, RN notes reviewed Mode of arrival: ambulatory Limitations: no limitations - History of Present Illness Initial comments: 25-year-old female with a past medical history of asthma, Chiari malformation, diverticulitis, herniated lumbar disc presents to the emergency room for a chief complaint of pain. Patient reports that she has right flank and right-sided abdominal pain. States that she had a kidney surgery for removal of the cyst on August 08. Patient states on July 13 at she had a fall from standing when she tried to get out of bed in the this exacerbated the pain. States it has been persistent since that time. Patient was seen in the ER and had scheduled an outpatient follow-up with her urologist for this coming week. Patient presents today because the pain does not seem to be improving. She states this concerns her because she had complications of low hemoglobin shortly after surgery and wants to be checked out today.Patient has no other complaints at this time including shortness of breath, chest pain, nausea or vomiting, headache, or visual changes. - Related Data Home Medications Medication Instructions Recorded Confirmed Albuterol Sulfate [Proair Hfa] 2 puff INHALATION RT-Q6H PRN 03/21/19 08/13/20 Fluticasone/Salmeterol [Advair 1 puff INHALATION RT-BID PRN 04/30/20 08/13/20 100-50 Diskus] HYDROcodone/APAP 5-325MG [[place] 1 tab PO TID PRN 04/30/20 08/13/20 5-325] tiZANidine HCL [Zanaflex] 4 mg PO BID PRN 04/30/20 08/13/20 Ergocalciferol [Vitamin D2 (1250 1,250 mcg PO SABILLON 08/01/20 08/13/20 Mcg = 21441 Iu)] Lisdexamfetamine Dimesylate 20 mg PO DAILY 08/01/20 08/13/20 [Vyvanse] QUEtiapine [SEROquel] 50 mg PO HS 08/01/20 08/13/20 Sertraline HCl [Zoloft] 100 mg PO HS 08/01/20 08/13/20 rOPINIRole HCL [Requip] 2 mg PO HS 08/01/20 08/13/20 Naproxen 500 mg PO BID PRN 08/13/20 08/13/20 QUEtiapine [SEROquel] 25 mg PO HS PRN 08/13/20 08/13/20 Varenicline [Chantix Continuing 1 mg PO DAILY 08/13/20 08/13/20 Pack] Previous Rx's Medication Instructions Recorded oxyCODONE HCL/ACETAMINOPHEN 1 tab PO Q6HR PRN 3 Days #10 tab 08/11/20 [Percocet 5-325 mg] Allergies Allergy/AdvReac Type Severity Reaction Status Date / Time No Known Allergies Allergy Verified 08/17/20 19:51 Review of Systems ROS Statement: Those systems with pertinent positive or pertinent negative responses have been documented in the HPI. ROS Other: All systems not noted in ROS Statement are negative. Past Medical History Past Medical History: Asthma, Musculoskeletal Disorder Additional Past Medical History / Comment(s): chiari malformation, diverticulitis, DDD, herniated lumbar disc., receives toradol injections, states hx of palpitations, cysts on kidney, History of Any Multi-Drug Resistant Organisms: None Reported Past Surgical History: No Surgical Hx Reported Additional Past Surgical History / Comment(s): wisdom teeth removed, cyst re moved from kidney Past Anesthesia/Blood Transfusion Reactions: Family History of Problems w/ Anesthesia Additional Past Anesthesia/Blood Transfusion Reaction / Comment(s): no anesthesia hx. emotional when waking up after wisdom teeth. Patients Mother gets PONV and combative. Past Psychological History: ADD/ADHD, Anxiety, Depression, Panic Disorder, PTSD Smoking Status: Current every day smoker Past Alcohol Use History: None Reported Past Drug Use History: Marijuana - Past Family History Mother Family Medical History: No Reported History General Exam Limitations: no limitations General appearance: alert, in no apparent distress Head exam: Present: atraumatic, normocephalic, normal inspection Eye exam: Present: normal appearance, PERRL, EOMI. Absent: scleral icterus, conjunctival injection, periorbital swelling ENT exam: Present: normal exam, mucous membranes moist Neck exam: Present: normal inspection, full ROM. Absent: tenderness, meningismus, lymphadenopathy Respiratory exam: Present: normal lung sounds bilaterally. Absent: respiratory distress, wheezes, rales, rhonchi, stridor Cardiovascular Exam: Present: regular rate, normal rhythm, normal heart sounds. Absent: systolic murmur, diastolic murmur, rubs, gallop, clicks GI/Abdominal exam: Present: soft, tenderness (Minimal generalized right-sided abdominal tenderness), normal bowel sounds. Absent: distended, guarding, rebound, rigid Back exam: Present: CVA tenderness (L) (Minimal right flank pain). Absent: CVA tenderness (R) Course Vital Signs 08/17/20 08/17/20 19:49 21:47 Temperature 97.9 F Pulse Rate 111 H 93 Respiratory 18 18 Rate Blood Pressure 121/75 O2 Sat by Pulse 100 Oximetry Medical Decision Making - Medical Decision Making Vitals are stable. Patient initially tachycardic likely secondary to pain. I did review previous results from August 13 including CAT scan. Provider at that time had spoken with the urologist who stated all findings are normal post surgically and to follow-up in the office. Today vitals are stable. Patient is well-appearing. Patient has minimal right- sided abdominal tenderness. CBC unremarkable, minimal leukocytosis which is improving. Hemoglobin is similar to 4 days ago at 10.4. CMP unremarkable. Urinalysis does show small blood which is to be expected after recent surgery. Patient was given pain medication and did have significant improvement in pain. Given CT results were arty reviewed by a neurologist patient is stable for discharge home and to follow up outpatient. However if her symptoms worsen she'll return to the emergency room. I discussed this case with attending Dr. Stoner who agrees with this assessment and treatment plan. - Lab Data Result diagrams: 08/17/20 20:34 08/17/20 20:34 Lab Results 08/17/20 08/17/20 08/17/20 Range/Units 20:34 20:34 20:34 WBC 11.4 H (3.8-10.6) k/uL RBC 3.12 L (3.80-5.40) m/uL Hgb 10.4 L (11.4-16.0) gm/dL Hct 29.7 L (34.0-46.0) % MCV 95.3 (80.0-100.0) fL MCH 33.2 (25.0-35.0) pg MCHC 34.8 (31.0-37.0) g/dL RDW 12.3 (11.5-15.5) % Plt Count 354 (150-450) k/uL MPV 7.1 Neutrophils % 76 % Lymphocytes % 17 % Monocytes % 4 % Eosinophils % 2 % Basophils % 0 % Neutrophils # 8.7 H (1.3-7.7) k/uL Lymphocytes # 1.9 (1.0-4.8) k/uL Monocytes # 0.5 (0-1.0) k/uL Eosinophils # 0.2 (0-0.7) k/uL Basophils # 0.0 (0-0.2) k/uL Sodium 140 (137-145) mmol/L Potassium 3.6 (3.5-5.1) mmol/L Chloride 108 H (98-107) mmol/L Carbon Dioxide 26 (22-30) mmol/L Anion Gap 6 mmol/L BUN 11 (7-17) mg/dL Creatinine 0.54 (0.52-1.04) mg/dL Est GFR (CKD-EPI)AfAm >90 (>60 ml/min/1.73 sqM) Est GFR (CKD-EPI)NonAf >90 (>60 ml/min/1.73 sqM) Glucose 102 H (74-99) mg/dL Calcium 9.2 (8.4-10.2) mg/dL Total Bilirubin 0.4 (0.2-1.3) mg/dL AST 24 (14-36) U/L ALT 31 (4-34) U/L Alkaline Phosphatase 79 (38-126) U/L Total Protein 6.4 (6.3-8.2) g/dL Albumin 3.6 (3.5-5.0) g/dL Amylase 57 (30-110) U/L Lipase 82 (23-300) U/L Urine Color Yellow Urine Appearance Cloudy H (Clear) Urine pH 7.5 (5.0-8.0) Ur Specific [place] 1.016 (1.001-1.035) Urine Protein Negative (Negative) Urine Glucose (UA) Negative (Negative) Urine Ketones Negative (Negative) Urine Blood Small H (Negative) Urine Nitrite Negative (Negative) Urine Bilirubin Negative (Negative) Urine Urobilinogen <2.0 (<2.0) mg/dL Ur Leukocyte Esterase Negative (Negative) Urine RBC 5 (0-5) /hpf Urine WBC 1 (0-5) /hpf Ur Squamous Epith Cells 3 (0-4) /hpf Amorphous Sediment Rare H (None) /hpf Urine Bacteria Rare H (None) /hpf Urine Mucus Occasional H (None) /hpf Disposition Clinical Impression: Post-operative pain Disposition: HOME SELF-CARE Condition: Good Instructions (If sedation given, give patient instructions): Acute Abdominal Pain (ED) Additional Instructions: Please take Motrin and Tylenol for pain. Take Tylenol 3 as needed for breakthrough pain. Do not drive while taking this. Follow-up with your urologist as soon as possible. Call Wednesday to inform them that you were again seen in the ER. Return to the emergency room for any worsening symptoms. Is patient prescribed a controlled substance at d/c from ED?: No Referrals: Ramu Villa MD [Primary Care Provider] - 1-2 days Dario Noel MD [STAFF PHYSICIAN] - 1-2 days Time of Disposition: 22:00
[2020-08-17] MEDS ORDERED: SODIUM CHLORIDE 0.9% 1,000 ML IV STA (20:16)
[2020-08-17] MEDS ORDERED: KETOROLAC 15 MG/ML 1 ML VIAL IVP STA (20:16)
[2020-08-17 20:48] LABS: Basophils % (A) 0 %; Eosinophils # (A) 0.2 k/uL (0-0.7); Eosinophils % (A) 2 %; HCT 29.7 % (34.0-46.0); HGB 10.4 gm/dL (11.4-16.0); Lymphocytes # (A) 1.9 k/uL (1.0-4.8); Lymphocytes % (A) 17 %; MCH 33.2 pg (25.0-35.0); MCHC 34.8 g/dL (31.0-37.0); MCV 95.3 fL (80.0-100.0); Mean Platelet Volume 7.1; Monocytes # (A) 0.5 k/uL (0-1.0); Monocytes % (A) 4 %; Neutrophils # (A) 8.7 k/uL (1.3-7.7); Neutrophils % (A) 76 %; Platelet Count 354 k/uL (150-450); RBC 3.12 m/uL (3.80-5.40); RDW 12.3 % (11.5-15.5); WBC 11.4 k/uL (3.8-10.6)
[2020-08-17 21:00] LABS: Amorphous Sediment,Urine Rare /hpf; Appearance,Urine Cloudy (Clear); Bacteria,Urine Rare /hpf; Bilirubin,Urine Negative (Negative); Blood,Urine Small (Negative); Color,Urine Yellow; Glucose,Urine (UA) Negative (Negative); Ketones,Urine Negative (Negative); Leukocyte Esterase,Urine Negative (Negative); Mucus,Urine Occasional /hpf; Nitrite,Urine Negative (Negative); PH, Urine 7.5 (5.0-8.0); Protein,Urine Negative (Negative); RBC,Urine 5 /hpf (0-5); Specific Gravity,Urine 1.016 (1.001-1.035); Squamous Epithelial Cell,Urine 3 /hpf (0-4); Urobilinogen,Urine <2.0 mg/dL (<2.0); WBC,Urine 1 /hpf (0-5)
[2020-08-17 21:19] LABS: ALT 31 U/L (4-34); AST 24 U/L (14-36); African American GFR (CKD) >90 (>60 ml/min/1.73 sqM); Albumin 3.6 g/dL (3.5-5.0); Alkaline Phosphatase 79 U/L (38-126); Amylase 57 U/L (30-110); Anion Gap 6 mmol/L; Blood Urea Nitrogen 11 mg/dL (7-17); Calcium 9.2 mg/dL (8.4-10.2); Carbon Dioxide 26 mmol/L (22-30); Chloride 108 mmol/L (98-107); Glucose 102 mg/dL (74-99); Lipase 82 U/L (23-300); Non-African American GFR(CKD) >90 (>60 ml/min/1.73 sqM); Potassium 3.6 mmol/L (3.5-5.1); Sodium 140 mmol/L (137-145); Total Bilirubin 0.4 mg/dL (0.2-1.3); Total Protein 6.4 g/dL (6.3-8.2)
[2020-08-17] MEDS ORDERED: HYDROmorphone 1 MG/ML 1 ML SYRINGE IVP STA (21:33)
[2020-08-17 21:47] VITALS: PULSE 93
[2020-08-17] MEDS ORDERED: ACET/COD 300 MG/30 MG STARTER PACK 6 TAB BTL PO STA (22:00)
[2020-08-17 22:14] VITALS: BP 128/73
== END 2020-08-17 22:14 | disposition home or self-care (01) ==
LOC: EC 19:47
DX: G89.18 Other acute postprocedural pain (principal); R10.84 Generalized abdominal pain; J45.909 Unspecified asthma, uncomplicated; F32.9 Major depressive disorder, single episode, unspecified; F17.200 Nicotine dependence, unspecified, uncomplicated; F12.90 Cannabis use, unspecified, uncomplicated; Z79.899 Other long term (current) drug therapy; Z79.51 Long term (current) use of inhaled steroids
CPT/HCPCS: 36415; 80053; 82150; 83690; 85025; 81001; 99284; 96374; 96375; 96361; J1170; J1885

== ENCOUNTER → 2020-10-30 | Outpatient (CLI) | payer OTHER ==
[2020-10-30 09:38] LABS: Creatinine,Urine Random 189.2 mg/dL; Protein/Creatinine Ratio,Urine 0.032
[2020-10-30 09:39] LABS: Appearance,Urine Cloudy (Clear); Bacteria,Urine Rare /hpf; Bilirubin,Urine Negative (Negative); Blood,Urine Large (Negative); Color,Urine Yellow; Glucose,Urine (UA) Negative (Negative); Ketones,Urine Trace (Negative); Leukocyte Esterase,Urine Small (Negative); Mucus,Urine Occasional /hpf; Nitrite,Urine Negative (Negative); Protein,Urine Negative (Negative); RBC,Urine 48 /hpf (0-5); Specific Gravity,Urine 1.022 (1.001-1.035); Squamous Epithelial Cell,Urine 6 /hpf (0-4); Urobilinogen,Urine <2.0 mg/dL (<2.0); WBC,Urine 3 /hpf (0-5)
[2020-10-31 03:53] LABS: African American GFR (CKD) 145.8 (60.0-200.0); Albumin 4.5 g/dL (3.80-4.90); Albumin/Globulin Ratio 1.67 (1.60-3.17); Anion Gap 8.1 mmol/L (4.00-12.00); Calcium 9.8 mg/dL (8.7-10.3); Carbon Dioxide 22.9 mmol/L (21.6-31.8); Globulin 2.7 g/dL (1.6-3.3); Magnesium 1.7 mg/dL (1.5-2.4); Non-African American GFR(CKD) 125.8 (60.0-200.0); Potassium 4.1 mmol/L (3.5-5.5); Total Bilirubin 0.3 mg/dL (0.2-1.2); Total Protein 7.2 g/dL (6.2-8.2); Uric Acid 4.1 mg/dL (2.9-7.7)
== END | disposition home or self-care (01) ==
LOC: LABWHC1 08:18
PROVIDERS: ATTEND Nurse Practitioner Family
DX: N39.0 Urinary tract infection, site not specified (principal); R80.9 Proteinuria, unspecified; M10.9 Gout, unspecified; N28.1 Cyst of kidney, acquired; R31.9 Hematuria, unspecified
CPT/HCPCS: 36415; 80053; 81001; 81025; 82570; 83735; 84156; 84550

== ENCOUNTER 2021-04-16 15:52 | Inpatient (IN) | payer OTHER ==
[2021-04-16] MEDS ORDERED: KETOROLAC 15 MG/ML 1 ML VIAL IVP STA (20:31)
[2021-04-16] MEDS ORDERED: SODIUM CHLORIDE 0.9% 1,000 ML IV ONE (20:31)
[2021-04-16] MEDS ORDERED: ONDANSETRON 4 MG/2 ML VIAL IVP STA (20:31)
[2021-04-16] MEDS ORDERED: HYDROmorphone 1 MG/ML 1 ML SYRINGE IVP STA (20:31)
[2021-04-16 20:58] LABS: Basophils # (A) 0.1 k/uL (0-0.2); Basophils % (A) 1 %; Eosinophils # (A) 0.2 k/uL (0-0.7); Eosinophils % (A) 2 %; HCT 37.9 % (34.0-46.0); HGB 12.7 gm/dL (11.4-16.0); Lymphocytes % (A) 41 %; MCH 31.7 pg (25.0-35.0); MCHC 33.4 g/dL (31.0-37.0); MCV 94.7 fL (80.0-100.0); Mean Platelet Volume 7.8; Monocytes # (A) 0.5 k/uL (0-1.0); Monocytes % (A) 5 %; Neutrophils # (A) 4.9 k/uL (1.3-7.7); Neutrophils % (A) 50 %; Platelet Count 317 k/uL (150-450); RDW 12.1 % (11.5-15.5); WBC 9.9 k/uL (3.8-10.6)
--- NOTE | 2021-04-16 20:58 | ED ---
Upper Extremity HPI - General Chief Complaint: Extremity Injury, Upper Stated Complaint: Post-op complications, Left hand Time Seen by Provider: 04/16/21 19:58 Source: patient Mode of arrival: ambulatory Limitations: no limitations - History of Present Illness Initial Comments: 25 year-old female patient presents to the emergency department for evaluation of left hand pain and swelling. Patient developed abscess to the wrist about a week ago. States that she went to [facility], was admitted and had a surgical procedure to drain the abscess. States that over the last 24 hours she has had increased pain and swelling to the hand. She denies any fever or chills. Denies vomiting. She has been taking Augmentin. Does have home pain medication that is not helping. She does have history of IV drug use, last use was a little over a year ago. Has had abscesses before. Denies every being diagnosed with MRSA. - Related Data Home Medications Medication Instructions Recorded Confirmed Albuterol Sulfate [Proair Hfa] 2 puff INHALATION RT-Q6H PRN 03/21/19 08/13/20 Fluticasone/Salmeterol [Advair 1 puff INHALATION RT-BID PRN 04/30/20 08/13/20 100-50 Diskus] HYDROcodone/APAP 5-325MG [[place] 1 tab PO TID PRN 04/30/20 08/13/20 5-325] tiZANidine HCL [Zanaflex] 4 mg PO BID PRN 04/30/20 08/13/20 Ergocalciferol [Vitamin D2 (1250 1,250 mcg PO SABILLON 08/01/20 08/13/20 Mcg = 59877 Iu)] Lisdexamfetamine Dimesylate 20 mg PO DAILY 08/01/20 08/13/20 [Vyvanse] QUEtiapine [SEROquel] 50 mg PO HS 08/01/20 08/13/20 Sertraline HCl [Zoloft] 100 mg PO HS 08/01/20 08/13/20 rOPINIRole HCL [Requip] 2 mg PO HS 08/01/20 08/13/20 Naproxen 500 mg PO BID PRN 08/13/20 08/13/20 QUEtiapine [SEROquel] 25 mg PO HS PRN 05/04/21 05/04/21 Varenicline [Chantix Continuing 1 mg PO DAILY 08/13/20 08/13/20 Pack] Previous Rx's Medication Instructions Recorded oxyCODONE HCL/ACETAMINOPHEN 1 tab PO Q6HR PRN 3 Days #10 tab 08/11/20 [Percocet 5-325 mg] Allergies Allergy/AdvReac Type Severity Reaction Status Date / Time No Known Allergies Allergy Verified 04/16/21 18:12 Review of Systems ROS Statement: Those systems with pertinent positive or pertinent negative responses have been documented in the HPI. ROS Other: All systems not noted in ROS Statement are negative. Past Medical History Past Medical History: Asthma, Musculoskeletal Disorder Additional Past Medical History / Comment(s): chiari malformation, diverticulitis, DDD, herniated lumbar disc., receives toradol injections, states hx of palpitations, cysts on kidney, History of Any Multi-Drug Resistant Organisms: None Reported Past Surgical History: No Surgical Hx Reported Additional Past Surgical History / Comment(s): wisdom teeth removed, cyst removed from kidney Past Anesthesia/Blood Transfusion Reactions: Family History of Problems w/ Anesthesia Additional Past Anesthesia/Blood Transfusion Reaction / Comment(s): no anesthesia hx. emotional when waking up after wisdom teeth. Patients Mother gets PONV and combative. Past Psychological History: ADD/ADHD, Anxiety, Depression, Panic Disorder, PTSD Smoking Status: Current every day smoker Past Alcohol Use History: None Reported Past Drug Use History: Marijuana - Past Family History Mother Family Medical History: No Reported History General Exam Limitations: no limitations General appearance: alert, in no apparent distress, other (This is a well- developed, well-nourished adult female in no acute distress.) Respiratory exam: Present: normal lung sounds bilaterally. Absent: respiratory distress, wheezes, rales, rhonchi, stridor Cardiovascular Exam: Present: regular rate, normal rhythm, normal heart sounds. Absent: systolic murmur, diastolic murmur, rubs, gallop, clicks GI/Abdominal exam: Present: soft, normal bowel sounds. Absent: distended, tenderness, guarding, rebound, rigid Extremities exam: Present: full ROM, normal capillary refill, other (There is open incision noted to the left wrist. There is soft tissue swelling and erythema noted over the dorsal aspect of the left hand. Patient has full range of motion of the left fifth digit. Unable to move the 2nd, 3rd, 4th digit.). Absent: normal inspection, tenderness, pedal edema, joint swelling, calf tenderness Neurological exam: Present: alert, oriented X3, CN II-XII intact Psychiatric exam: Present: normal affect, normal mood Skin exam: Present: warm, dry, intact, normal color. Absent: rash Course Vital Signs 04/16/21 18:13 Temperature 98.9 F Pulse Rate 98 Respiratory 20 Rate Blood Pressure 123/69 O2 Sat by Pulse 100 Oximetry Medical Decision Making - Medical Decision Making 25-year-old female patient presented to the emergency department for increased pain, swelling, redness to the left hand after having drainage of an abscess on Wednesday. Physical examination did reveal soft tissue swelling and erythema over the dorsal aspect of the left hand. There is open incision with purulent drainage. She has been taking Augmentin. Labs reviewed and did reveal normal white blood cell, normal lactic acid. I did call orthopedics who are willing to consult. They wanted me that ESR, CRP, x-ray. X-rays negative. Labs are pending. She'll be admitted with infectious disease consult. Patient is agreeable with this plan. My attending is Dr. Martino. - Lab Data Result diagrams: 04/16/21 20:31 04/16/21 20:31 Lab Results 04/16/21 04/16/21 04/16/21 Range/Units 20:31 20:31 20:31 WBC 9.9 (3.8-10.6) k/uL RBC 4.00 (3.80-5.40) m/uL Hgb 12.7 (11.4-16.0) gm/dL Hct 37.9 (34.0-46.0) % MCV 94.7 (80.0-100.0) fL MCH 31.7 (25.0-35.0) pg MCHC 33.4 (31.0-37.0) g/dL RDW 12.1 (11.5-15.5) % Plt Count 317 (150-450) k/uL MPV 7.8 Neutrophils % 50 % Lymphocytes % 41 % Monocytes % 5 % Eosinophils % 2 % Basophils % 1 % Neutrophils # 4.9 (1.3-7.7) k/uL Lymphocytes # 4.0 (1.0-4.8) k/uL Monocytes # 0.5 (0-1.0) k/uL Eosinophils # 0.2 (0-0.7) k/uL Basophils # 0.1 (0-0.2) k/uL Sodium 141 (137-145) mmol/L Potassium 5.9 H (3.5-5.1) mmol/L Chloride 106 (98-107) mmol/L Carbon Dioxide 24 (22-30) mmol/L Anion Gap 11 mmol/L BUN 10 (7-17) mg/dL Creatinine 0.54 (0.52-1.04) mg/dL Est GFR (CKD-EPI)AfAm >90 (>60 ml/min/1.73 sqM) Est GFR (CKD-EPI)NonAf >90 (>60 ml/min/1.73 sqM) Glucose 91 (74-99) mg/dL Plasma Lactic Acid [place] 1.1 (0.7-2.0) mmol/L Calcium 9.4 (8.4-10.2) mg/dL Total Bilirubin 0.9 (0.2-1.3) mg/dL AST 31 (14-36) U/L ALT 12 (4-34) U/L Alkaline Phosphatase 52 (38-126) U/L C-Reactive Protein (<1.0) mg/dL Total Protein 8.1 (6.3-8.2) g/dL Albumin 4.5 (3.5-5.0) g/dL 04/16/21 Range/Units 20:31 WBC (3.8-10.6) k/uL RBC (3.80-5.40) m/uL Hgb (11.4-16.0) gm/dL Hct (34.0-46.0) % MCV (80.0-100.0) fL MCH (25.0-35.0) pg MCHC (31.0-37.0) g/dL RDW (11.5-15.5) % Plt Count (150-450) k/uL MPV Neutrophils % % Lymphocytes % % Monocytes % % Eosinophils % % Basophils % % Neutrophils # (1.3-7.7) k/uL Lymphocytes # (1.0-4.8) k/uL Monocytes # (0-1.0) k/uL Eosinophils # (0-0.7) k/uL Basophils # (0-0.2) k/uL Sodium (137-145) mmol/L Potassium (3.5-5.1) mmol/L Chloride (98-107) mmol/L Carbon Dioxide (22-30) mmol/L Anion Gap mmol/L BUN (7-17) mg/dL Creatinine (0.52-1.04) mg/dL Est GFR (CKD-EPI)AfAm (>60 ml/min/1.73 sqM) Est GFR (CKD-EPI)NonAf (>60 ml/min/1.73 sqM) Glucose (74-99) mg/dL Plasma Lactic Acid [place] (0.7-2.0) mmol/L Calcium (8.4-10.2) mg/dL Total Bilirubin (0.2-1.3) mg/dL AST (14-36) U/L ALT (4-34) U/L Alkaline Phosphatase (38-126) U/L C-Reactive Protein 1.3 H (<1.0) mg/dL Total Protein (6.3-8.2) g/dL Albumin (3.5-5.0) g/dL - Radiology Data Radiology results: report reviewed, image reviewed 3 views of the left hand are obtained. Report was reviewed in its entirety. Impression by Dr. Mcdonald shows soft tissue swelling. No fracture seen. Disposition Clinical Impression: Cellulitis of left hand, Abscess of skin of left wrist Disposition: [facility] Condition: Serious Referrals: John Henry MD [Primary Care Provider] - 1-2 days Decision to Admit Reason: Admit from EC Decision Date: 04/16/21 Decision Time: 21:40
[2021-04-16 21:15] LABS: ALT 12 U/L (4-34); AST 31 U/L (14-36); African American GFR (CKD) >90 (>60 ml/min/1.73 sqM); Albumin 4.5 g/dL (3.5-5.0); Alkaline Phosphatase 52 U/L (38-126); Anion Gap 11 mmol/L; Blood Urea Nitrogen 10 mg/dL (7-17); Calcium 9.4 mg/dL (8.4-10.2); Carbon Dioxide 24 mmol/L (22-30); Chloride 106 mmol/L (98-107); Glucose 91 mg/dL (74-99); Non-African American GFR(CKD) >90 (>60 ml/min/1.73 sqM); Sodium 141 mmol/L (137-145); Total Bilirubin 0.9 mg/dL (0.2-1.3); Total Protein 8.1 g/dL (6.3-8.2)
[2021-04-16 21:20] LABS: Potassium 5.9 mmol/L (3.5-5.1)
[2021-04-16] MEDS ORDERED: VANCOMYCIN IV PER PHARMACY 1 EACH MISC MISCELLANE PRN (21:35)
[2021-04-16] MEDS ORDERED: AMPICILLIN-SULBACTAM 3 GM in SODIUM CHLORIDE 0.9% 100 ML IVPB STA (21:35)
[2021-04-16] MEDS ORDERED: NALOXONE 0.4 MG/ML 1 ML VIAL IV PRN (21:41)
[2021-04-16] MEDS ORDERED: KETOROLAC 15 MG/ML 1 ML VIAL IVP PRN (21:41)
--- NOTE | 2021-04-16 22:07 | XR ---
EXAMINATION TYPE: XR hand complete LT DATE OF EXAM: 04/16/2021 COMPARISON: NONE HISTORY: Left hand pain TECHNIQUE: 3 views FINDINGS: Metacarpals are intact. There is soft tissue swelling on the dorsum of the hand. I see no b andrew destructive process. There is no evidence of a fracture. IMPRESSION: Soft tissue swelling. No fracture seen.
[2021-04-16] MEDS ORDERED: VANCOMYCIN 1,000 MG in SODIUM CHLORIDE 0.9% 250 ML IVPB ONE (22:30)
[2021-04-16] MEDS: HYDROcodone/APAP 5-325MG 1 EACH TAB PO PRN (22:59)
[2021-04-16] MEDS: SODIUM CHLORIDE 0.9% 1,000 ML IV SCH (23:03)
[2021-04-17] MEDS ORDERED: KETOROLAC 30 MG/ML 1 ML VIAL IVP PRN (00:08)
[2021-04-17] MEDS: HYDROcodone/APAP 5-325MG 1 EACH TAB PO PRN ×4 (06:24→19:43)
[2021-04-17] MEDS: VANCOMYCIN 1,000 MG in SODIUM CHLORIDE 0.9% 250 ML IVPB SCH ×3 (06:24→22:41)
[2021-04-17] MEDS ORDERED: QUEtiapine 25 MG TAB PO PRN (10:45)
[2021-04-17] MEDS ORDERED: ALBUTEROL HFA INHALER INHALATION PRN (10:45)
[2021-04-17] MEDS ORDERED: QUEtiapine 50 MG TAB PO PRN (10:45)
[2021-04-17] MEDS: NON FORMULARY DRUG (Lisdexamfetamine Dimesylate [Vyvanse] 50 MG Capsule) PO SCH (11:17)
[2021-04-17 11:53] LABS: African American GFR (CKD) >90 (>60 ml/min/1.73 sqM); Anion Gap 7 mmol/L; Blood Urea Nitrogen 13 mg/dL (7-17); Calcium 8.7 mg/dL (8.4-10.2); Carbon Dioxide 22 mmol/L (22-30); Chloride 109 mmol/L (98-107); Glucose 86 mg/dL (74-99); Non-African American GFR(CKD) >90 (>60 ml/min/1.73 sqM); Potassium 3.9 mmol/L (3.5-5.1); Sodium 138 mmol/L (137-145)
[2021-04-17] MEDS: NAPROXEN 250 MG TAB PO SCH ×3 (13:52→20:11)
[2021-04-17] MEDS: ENOXAPARIN 40 MG/0.4 ML SYRINGE SQ SCH (13:52)
[2021-04-17] MEDS: NICOTINE 21MG/24HR PATCH TRANSDERM SCH (14:56)
--- NOTE | 2021-04-17 16:37 | P.CNOR ---
History of Present Illness - [facility] Consult date: 04/17/21 Requesting physician: Linda Rucker Consult reason: other (Left hand cellulitis; left wrist abscess) History of present illness: Patient is a 25-year-old female presenting to the emergency department yesterday for left wrist/hand pain with increased swelling. Patient says she developed this wound/abscess to her left wrist over a week ago. Patient says she went to [facility] this past where surgery was performed to drain the abscess. Surgery was performed this past Wednesday. Patient says she began to have increased swelling in her left hand a couple days ago. Patient says she's had difficulty extending her digits in her left hand. Patient denies any fever /chills. Patient says she has been taking oral antibiotics since the procedure and [facility] on Wednesday. Patient says the pain medication is not helping. Patient does have a history of IV drug use and when asked patient says her last use was "a while ago". Patient denies chest pain, fever, chest breath, nausea, vomiting, change in vision, loss of bowel/bladder control. Past Medical History Past Medical History: Asthma, Musculoskeletal Disorder Additional Past Medical History / Comment(s): chiari malformation, diver ticulitis, DDD, herniated lumbar disc., receives toradol injections, states hx of palpitations, cysts on kidney, History of Any Multi-Drug Resistant Organisms: None Reported Past Surgical History: No Surgical Hx Reported Additional Past Surgical History / Comment(s): wisdom teeth removed, cyst removed from kidney. I&D lt hand abcess Apr 2021 Past Anesthesia/Blood Transfusion Reactions: Family History of Problems w/ Anesthesia Additional Past Anesthesia/Blood Transfusion Reaction / Comm: no anesthesia hx. emotional when waking up after wisdom teeth. Patients Mother gets PONV and combative. Past Psychological History: ADD/ADHD, Anxiety, Depression, Panic Disorder, PTSD Smoking Status: Current every day smoker Past Alcohol Use History: None Reported Additional Past Alcohol Use History / Comment(s): 1ppd since age of 7 Past Drug Use History: Marijuana Additional Drug Use History / Comment(s): daily use - Past Family History Mother Family Medical History: No Reported History Medications and Allergies Home Medications Medication Instructions Recorded Confirmed Type Albuterol Sulfate [Proair Hfa] 2 puff INHALATION RT-Q6H PRN 03/21/19 04/16/21 History QUEtiapine [SEROquel] 50 mg PO HS PRN 08/01/20 04/16/21 History Sertraline HCl [Zoloft] 200 mg PO HS 08/01/20 04/16/21 History QUEtiapine [SEROquel] 25 mg PO HS PRN 08/13/20 04/16/21 History Amoxic-Pot Clav 500-125 mg 1 tab PO Q8H 04/16/21 04/16/21 History [Augmentin 500-125 mg] HYDROcodone/APAP 7.5-325MG [[place] 1 tab PO TID PRN 04/16/21 04/16/21 History 7.5-325] Lisdexamfetamine Dimesylate 50 mg PO DAILY 04/16/21 04/16/21 History [Vyvanse] clonazePAM [KlonoPIN] 0.5 mg PO BID PRN 04/16/21 04/16/21 History Allergies Allergy/AdvReac Type Severity Reaction Status Date / Time No Known Allergies Allergy Verified 04/16/21 23:20 Physical Examination left arm: Inspection: There is some swelling/edema present over the dorsal aspect of the left hand extending into some of the digits. The left wrist is somewhat swollen/edematous. On the dorsal left wrist There is an open wound measuring approximately 1 x 2 cm in diameter with some pus draining. There is some iodoform gauze packed into the wound. There is surrounding erythema. Negative for any ecchymosis, open fractures, other nodules. Sensation: Sensation is equal, symmetric, bilaterally intact throughout the upper extremities Palpation: Patient has extreme tenderness to palpation around the open wound on the left wrist. There is some mild tenderness patient along the left hand dorsally. Nontender to palpation throughout rest exam Range of motion: Patient is able flex and extend digits in left hand, however, patient does have trouble in pain during extension of digits 2 through 4. James cruz has limited range of motion wrist flexion/extension on left side due to pain/swelling. Motor: Some weakness in resisted wrist flexion/extension on left side. Surgical Instrument Technician strength in left hand 3+/5. 4+/5 in all other major motor groups Neurovascular status: Refill below 3 seconds bilaterally in digits of the upper extremities. Radial pulse intact, 2+, bilaterally. Special tests: Negative Homans bilaterally Nonstick dressing and Kerlix was placed over open wound on left wrist Results - Labs Labs: Abnormal Lab Results - Last 24 Hours (Table) 04/16/21 04/16/21 04/16/21 Range/Units 20:31 20:31 21:40 ESR 41 H (0-20) mm/hr Potassium 5.9 H (3.5-5.1) mmol/L Chloride (98-107) mmol/L Creatinine (0.52-1.04) mg/dL C-Reactive Protein 1.3 H (<1.0) mg/dL 04/17/21 Range/Units 11:09 ESR (0-20) mm/hr Potassium (3.5-5.1) mmol/L Chloride 109 H (98-107) mmol/L Creatinine 0.51 L (0.52-1.04) mg/dL C-Reactive Protein (<1.0) mg/dL H & H 04/16/21 Range/Units 20:31 Hgb 12.7 (11.4-16.0) gm/dL Hct 37.9 (34.0-46.0) % Result Diagrams: 04/16/21 20:31 04/17/21 11:09 Assessment and Plan Assessment: 1. Left wrist cellulitis; left wrist abscess 2. History of IVDA Plan: 1. Left wrist cellulitis; left wrist abscess - patient was seen and examined at bedside earlier today. At this time we recommend surgical intervention with left wrist incision and drainage. Surgery has been scheduled for tomorrow, 04/18/2021 for left wrist incision drainage. Patient to remain nothing by mouth after midnight tonight. Nonstick dressing and Kerlix was placed over open wound. 2. History of IVDA 3. Appreciate medical management; appreciate ID management - patient currently on Vanco 4. Pain management - [place] 5. DVT prophylaxis - Lovenox 6. GI prophylaxis Time with Patient: Less than 30
[2021-04-17] MEDS: SODIUM CHLORIDE 0.9% 1,000 ML IV SCH ×2 (17:56→22:42)
--- NOTE | 2021-04-17 18:10 | P.HPIM ---
History of Present Illness H&P Date: 04/17/21 Chief Complaint: Left hand infection This is a pleasant 25-year-old patient who follows with Dr. John Henry. Chronic stable medical conditions include asthma, but GERD, ADHD, anxiety depression PTSD. Patient is on disability. Smokes about a pack a day. And is about to have 2 joints a day. Patient used to be IV drug abuser stopped about a year ago. Patient's had previous abscesses. About a week ago patient noticed a bump on the dorsum of the left hand. It progressively got worse. On Wednesday patient been down to the [facility] where it was I&D. She was discharged on Augmentin. It continued to get worse in terms of swelling and pain and decided to come in. Patient appetite is good. Denied any fever and chills. No nausea vomiting. Patient's grandmother and her onto the bedside. Patient does take [place] at home. Infectious disease and orthopedics were consulted. Review of systems: GEN.: None EYES: None HEENT: None NECK: None RESPIRATORY: Occasional wheezing CARDIOVASCULAR: None GASTROINTESTINAL: None GENITOURINARY: None MUSCULOSKELETAL: As above LYMPHATICS: None HEMATOLOGICAL: None PSYCHIATRY: Anxious NEUROLOGICAL: None Past medical history to include: Asthma, Chiari malformation, diverticulitis, herniated lumbar disc, ADHD, anxiety disorder, PTSD, history of IV drug abuse Social history: Lives with her mother. Is on disability. Smokes a pack a day for close to 18 years. Smokes 2 marijuana joints a day, Motrin to 1 mg a day. No alcohol. History of IVDA up to a year ago. Family history: Reviewed, noncontributory to presentation Physical examination: VITAL SIGNS: 98.8, 74, 16, 96/62, 98% room air GENERAL: BMI 23.9, sitting in bed, awake, comfortable., Multiple tattoos EYES: Pupils equal. Conjunctiva normal. HEENT: External appearance of nose and ears normal, oral cavity grossly normal. NECK: JVD not raised; masses not palpable. HEART: First and second heart sounds are normal; no edema. LUNGS: Respiratory rate normal; clear to auscultation. ABDOMEN: Soft, nontender, liver spleen not palpable, no masses palpable. PSYCH: Alert and oriented x3; mood and affect anxious/hyperactivel. MUSCULAR skeletal: On the dorsum of the left hand some swelling. Dressing wick present. Able to move her wrist. Some limitation of movements of the fingers. The passively they can be removed every 4 hours NEUROLOGICAL: Cranial nerves grossly intact; no facial asymmetry, power and sensation grossly intact. LYMPHATICS: No lymph nodes palpable in the axilla and neck INVESTIGATIONS, reviewed in the clinical context: White count 9.9 hemoglobin 12.7 platelets 3.7 ESR 41 potassium 3.9 creatinine 0.51 CRP 1.3 Coronavirus [PCR]: Not detected Left hand x-ray: Soft tissue swelling. No fracture seen. Assessment and plan: -Left hand infection in a previous IV drug abuser. Started a spontaneous boil that progressed to become an abscess. About a week ago. No fever and chills. She wasn't [facility] 4 days ago I&D was carried out. Started Augmentin. Now admitted to 4 symptoms not improving. IV vancomycin. For inflammation start naproxen 250 mg 3 times a day. Continue to hold because of [place]. Explained to the patient and no further IV pain medications this time. Also to keep moving her hands and fingers passively. Keep it elevated. Consultation to ID and orthopedics -Chronic nicotine dependence, sedative smoker Nicotine patch -Recreational marijuana use Advised against the same -ADHD Continue home medications -Anxiety depression, with PTSD Continue home medications -Intermittent asthma Pro-air 2 puffs every 6 when necessary IV vancomycin. Naproxen. [place] when necessary. Resume home medications. IV fluids. Subcu Lovenox. Also patient orthopedics and ID. Patient told to be up and about as tolerated. Past Medical History Past Medical History: Asthma, Musculoskeletal Disorder Additional Past Medical History / Comment(s): chiari malformation, diverticulitis, DDD, herniated lumbar disc., receives toradol injections, states hx of palpitations, cysts on kidney, History of Any Multi-Drug Resistant Organisms: None Reported Past Surgical History: No Surgical Hx Reported Additional Past Surgical History / Comment(s): wisdom teeth removed, cyst removed from kidney. I&D lt hand abcess Apr 2021 Past Anesthesia/Blood Transfusion Reactions: Family History of Problems w/ Anesthesia Additional Past Anesthesia/Blood Transfusion Reaction / Comment(s): no anesthesia hx. emotional when waking up after wisdom teeth. Patients Mother gets PONV and combative. Past Psychological History: ADD/ADHD, Anxiety, Depression, Panic Disorder, PTSD Smoking Status: Current every day smoker Past Alcohol Use History: None Reported Additional Past Alcohol Use History / Comment(s): 1ppd since age of 7 Past Drug Use History: Marijuana Additional Drug Use History / Comment(s): daily use - Past Family History Mother Family Medical History: No Reported History Medications and Allergies Home Medications Medication Instructions Recorded Confirmed Type Albuterol Sulfate [Proair Hfa] 2 puff INHALATION RT-Q6H PRN 03/21/19 04/16/21 History QUEtiapine [SEROquel] 50 mg PO HS PRN 08/01/20 04/16/21 History Sertraline HCl [Zoloft] 200 mg PO HS 08/01/20 04/16/21 History QUEtiapine [SEROquel] 25 mg PO HS PRN 08/13/20 04/16/21 History Amoxic-Pot Clav 500-125 mg 1 tab PO Q8H 04/16/21 04/16/21 History [Augmentin 500-125 mg] HYDROcodone/APAP 7.5-325MG [[place] 1 tab PO TID PRN 04/16/21 04/16/21 History 7.5-325] Lisdexamfetamine Dimesylate 50 mg PO DAILY 04/16/21 04/16/21 History [Vyvanse] clonazePAM [KlonoPIN] 0.5 mg PO BID PRN 04/16/21 04/16/21 History Allergies Allergy/AdvReac Type Severity Reaction Status Date / Time No Known Allergies Allergy Verified 04/16/21 23:20 Physical Exam Vitals: Vital Signs Temp Pulse Pulse Resp BP BP Pulse Ox 04/17/21 07:59 98.7 F 74 16 96/62 98 04/17/21 02:00 98.6 F 74 18 92/58 98 04/17/21 00:05 98.8 F 92 110/71 99 04/16/21 23:15 97.9 F 85 16 101/65 99 04/16/21 18:13 98.9 F 98 20 123/69 100 Intake and Output 04/16/21 04/17/21 04/17/21 22:59 06:59 14:59 Intake Total 600 Balance 600 Intake: Intake, IV Titration 600 Amount Sodium Chloride 0.9% 1, 600 000 ml @ 75 mls/hr IV . [id number] [facility] Rx#:[id number] Other: Weight 61.235 kg 61.235 kg Results CBC & Chem 7: 04/16/21 20:31 04/17/21 11:09 Labs: Abnormal Lab Results - Last 24 Hours (Table) 04/16/21 04/16/21 04/16/21 Range/Units 20:31 20:31 21:40 ESR 41 H (0-20) mm/hr Potassium 5.9 H (3.5-5.1) mmol/L C-Reactive Protein 1.3 H (<1.0) mg/dL Thrombosis Risk Factor Assmnt - Choose All That Apply Any of the Below Risk Factors Present?: No Other Risk Factors: No Other congenital or acquired thrombophilia - If yes, enter type in comment: No Thrombosis Risk Factor Assessment Level: Very Low Risk
[2021-04-17] MEDS: clonazePAM 0.5 MG TAB PO PRN (20:11)
[2021-04-17] MEDS: SERTRALINE 100 MG TAB PO SCH (20:11)
[2021-04-18] MEDS: ONDANSETRON 4 MG/2 ML VIAL IVP PRN ×4 (00:01→21:09)
[2021-04-18] MEDS ORDERED: VANCOMYCIN TROUGH DUE 1 EACH MISC MISCELLANE ONE (06:00)
[2021-04-18 07:04] LABS: African American GFR (CKD) >90 (>60 ml/min/1.73 sqM); Non-African American GFR(CKD) >90 (>60 ml/min/1.73 sqM)
[2021-04-18] MEDS: VANCOMYCIN 1,000 MG in SODIUM CHLORIDE 0.9% 250 ML IVPB SCH ×3 (07:58→22:33)
[2021-04-18] MEDS: NAPROXEN 250 MG TAB PO SCH ×3 (07:58→21:13)
[2021-04-18] MEDS: NICOTINE 21MG/24HR PATCH TRANSDERM SCH (07:58)
[2021-04-18] MEDS: HYDROcodone/APAP 5-325MG 1 EACH TAB PO PRN ×3 (07:58→15:30)
[2021-04-18] MEDS: ENOXAPARIN 40 MG/0.4 ML SYRINGE SQ SCH (07:59)
--- NOTE | 2021-04-18 09:22 | P.CONS ---
History of Present Illness - Reason for Consult Consult date: 04/17/21 left hand abscess Requesting physician: Vivek Edmondson - Chief Complaint left hand pain and swelling x 1 week - History of Present Illness History of present illness : Patient is a 25-year-old female presented to the ER for evaluation of left hand pain and swelling apparently the patient did develop an abscess on the dorsal aspect of the left hand for the patient was treated at [facility] patient mention she did have drainage of the abscess done and she was subsequently discharged home on oral Augmentin, patient mention she did have a significant worsening of the pain had the swelling and redness for the patient presented to the hospital patient, the pain to be more of a throbbing intensity is almost out of 10 and the current medication not helping her with associated swelling redness but no foul-smelling drainage patient did have some chills denies high-grade fever on arrival to the ER the patient was afebrile did have a normal white count creatinine was normal, the patient was negative patient did have x-rays of the hand soft tissue swelling no fracture seen patient was started on vancomycin has been admitted to hospital infectious disease was consulted for further management of antibiotic therapy Review of system: CONSTITUTIONAL: Positive for weakness denies high-grade fever. EYES: No complaint. ENT: No complaint. RESPIRATORY: No complaint. CARDIOVASCULAR: No complaint. GENITOURINARY: No complaint. GASTROINTESTINAL: No complaint. MUSCULOSKELETAL: As per history of present illness. INTEGUMENTARY: No complaint. PSYCHOLOGIC: No complaint. ENDOCRINE: No complaint. NEUROLOGIC: No complaint. Past medical history : Reviewed, documented below Past surgical history : Reviewed, documented below Social history: Reviewed, documented below Medications: Reviewed, as documented below EXAMINATION: Vital sigans= Reviewed and documented below GENERAL DESCRIPTION: Middle-aged female lying in bed, no distress. No tachypnea or accessory muscle of respiration use. HEENT: Shows Pallor , no scleral icterus. Oral mucous membrane is dry. NECK: Trachea central, no thyromegaly. LUNGS: Unlabored breathing. Clear to auscultation anteriorly. No wheeze or crackle. HEART: S1, S2, regular rate and rhythm. ABDOMEN: Soft, no tenderness , guarding or rigidity EXTREMITIES: Wound on the dorsal aspect of the left hand/wrist area which is currently packed with iodoform with some surrounding swelling no significant redness or foul-smelling drainage SKIN: No rash, no masses palpable. NEUROLOGICAL: The patient is awake, alert, oriented x3, mood and affect normal. LABS AND RADIOLOGY: Reviewed results see below Assessment : Patient with a left hand abscess status post drainage at the outside facility cultures are not available in this patient who did have a history of skin soft tissue infection and IV drug use, high clinical suspicious for MRSA that seem to have failed outpatient oral Augmentin therapy Plan: 1-vancomycin pharmacy to dose with a target trough of 15 while watching kidney function and Vanco trough closely. 2-await Ortho evaluation and to see me for further drainage and deep culture 3-pain management per admitting team 4-we will try to obtain culture data from the outside facility We will follow on clinical condition and cultures to further adjust medication if needed Thank you for this consultation we will follow the patient along with you Past Medical History Past Medical History: Asthma, Musculoskeletal Disorder Additional Past Medical History / Comment(s): chiari malformation, diverticulitis, DDD, herniated lumbar disc., receives toradol injections, states hx of palpitations, cysts on kidney, History of Any Multi-Drug Resistant Organisms: None Reported Past Surgical History: No Surgical Hx Reported Additional Past Surgical History / Comment(s): wisdom teeth removed, cyst removed from kidney. I&D lt hand abcess Apr 2021 Past Anesthesia/Blood Transfusion Reactions: Family History of Problems w/ Anesthesia Additional Past Anesthesia/Blood Transfusion Reaction / Comm: no anesthesia hx. emotional when waking up after wisdom teeth. Patients Mother gets PONV and combative. Past Psychological History: ADD/ADHD, Anxiety, Depression, Panic Disorder, PTSD Smoking Status: Current every day smoker Past Alcohol Use History: None Reported Additional Past Alcohol Use History / Comment(s): 1ppd since age of 7 Past Drug Use History: Marijuana Additional Drug Use History / Comment(s): daily use - Past Family History Mother Family Medical History: No Reported History Medications and Allergies Home Medications Medication Instructions Recorded Confirmed Type Albuterol Sulfate [Proair Hfa] 2 puff INHALATION RT-Q6H PRN 03/21/19 04/16/21 History QUEtiapine [SEROquel] 50 mg PO HS PRN 08/01/20 04/16/21 History Sertraline HCl [Zoloft] 200 mg PO HS 08/01/20 04/16/21 History QUEtiapine [SEROquel] 25 mg PO HS PRN 08/13/20 04/16/21 History Amoxic-Pot Clav 500-125 mg 1 tab PO Q8H 04/16/21 04/16/21 History [Augmentin 500-125 mg] HYDROcodone/APAP 7.5-325MG [[place] 1 tab PO TID PRN 04/16/21 04/16/21 History 7.5-325] Lisdexamfetamine Dimesylate 50 mg PO DAILY 04/16/21 04/16/21 History [Vyvanse] clonazePAM [KlonoPIN] 0.5 mg PO BID PRN 04/16/21 04/16/21 History Allergies Allergy/AdvReac Type Severity Reaction Status Date / Time No Known Allergies Allergy Verified 04/16/21 23:20 Physical Exam Vitals: Vital Signs Temp Pulse Pulse Resp BP BP Pulse Ox 04/17/21 12:43 98.7 F 86 16 112/73 99 04/17/21 07:59 98.7 F 74 16 96/62 98 04/17/21 02:00 98.6 F 74 18 92/58 98 04/17/21 00:05 98.8 F 92 110/71 99 04/16/21 23:15 97.9 F 85 16 101/65 99 04/16/21 18:13 98.9 F 98 20 123/69 100 Intake and Output 04/17/21 04/17/21 04/17/21 06:59 14:59 22:59 Intake Total 600 Balance 600 Intake: Intake, IV Titration 600 Amount Sodium Chloride 0.9% 1, 600 000 ml @ 75 mls/hr IV . [id number] [facility] Rx#:[id number] Other: Weight 61.235 kg Results CBC & Chem 7: 04/16/21 20:31 04/18/21 06:34 Labs: Abnormal Lab Results - Last 24 Hours (Table) 04/16/21 04/16/21 04/16/21 Range/Units 20:31 20:31 21:40 ESR 41 H (0-20) mm/hr Potassium 5.9 H (3.5-5.1) mmol/L Chloride (98-107) mmol/L Creatinine (0.52-1.04) mg/dL C-Reactive Protein 1.3 H (<1.0) mg/dL 04/17/21 Range/Units 11:09 ESR (0-20) mm/hr Potassium (3.5-5.1) mmol/L Chloride 109 H (98-107) mmol/L Creatinine 0.51 L (0.52-1.04) mg/dL C-Reactive Protein (<1.0) mg/dL
[2021-04-18] MEDS: NON FORMULARY DRUG (Lisdexamfetamine Dimesylate [Vyvanse] 50 MG Capsule) PO SCH (09:26)
[2021-04-18] MEDS ORDERED: IV FLUID CONTINUATION 1,000 ML IV ONE (11:24)
[2021-04-18] MEDS ORDERED: DEXAMETHASONE SOD PHOSPHATE 4 MG/ML 1 ML VIAL IVP ONE (12:12)
[2021-04-18] MEDS ORDERED: ONDANSETRON 4 MG/2 ML VIAL IVP ONE (12:12)
[2021-04-18] MEDS ORDERED: PROPOFOL 10 MG/ML 20 ML VIAL IV ONE (13:15)
[2021-04-18] MEDS ORDERED: LIDOCAINE 1% INJ 10MG/ML (20 ML MDV) ONE (13:15)
[2021-04-18] MEDS ORDERED: fentaNYL (PF) 50 MCG/ML 2 ML AMP ONE (13:15)
[2021-04-18] MEDS ORDERED: MIDAZOLAM 2 MG/2 ML VIAL ONE (13:15)
[2021-04-18] MEDS ORDERED: LACTATED RINGERS 1,000 ML IV ONE (13:39)
--- NOTE | 2021-04-18 13:51 | P.OP ---
Date of Procedure: 04/18/21 Preoperative Diagnosis: Left dorsal wrist abscess Postoperative Diagnosis: Same Procedure(s) Performed: Incision and drainage with irrigation and debridement left dorsal wrist abscess Anesthesia: NAYA Surgeon: Sami Ochoa Estimated Blood Loss (ml): 3 Pathology: other (Gram stain and cultures) Condition: stable Disposition: PACU Indications for Procedure: The patient's a 25-year-old female with a history of IV drug abuse who presents with drainage from her left dorsal wrist abscess she recently had surgery on 5 days ago. She notes increasing pain despite continuation of oral antibiotics. He discussion of the risks and benefits of repeat irrigation and debridement was made with the patient she opted to proceed. Risks of surgery to include persistence of infection and need for subsequent procedures was discussed. Informed consent was obtained. Operative Findings: Same Description of Procedure: The patient was brought to the operating room, and after induction of general anesthesia the left upper extremity was prepped and draped in normal fashion. The tourniquet was inflated to 250 mmHg. The previous 2-1/2 cm dorsal hand/wrist incision was opened. A mild amount of purulence was expressed. Deep cultures were obtained. The wound edges were sharply debrided with a scalpel down to level of the tenosynovium that was also debrided. The extensor tendons in the fourth dorsal compartment appeared to be intact. No other significant pockets of purulence were present. Wound was copiously irrigated with 1 L of saline. The wound edges were loosely reapproximated with simple 4-0 nylon sutures. A sterile dressing was applied. The tourniquet was deflated with less than 20 minutes total tourniquet time. The patient was awoken from general anesthesia and transferred to the recovery room in good condition. Blood loss was estimated at 3 mL. No complications were incurred. Sponge and needle counts were correct at the end the case.
[2021-04-18] MEDS ORDERED: HYDROmorphone 0.5 MG/0.5 ML SYRINGE IVP ONE (14:40)
[2021-04-18] MEDS: SODIUM CHLORIDE 0.9% 1,000 ML IV SCH (14:42)
[2021-04-18] MEDS ORDERED: KETOROLAC 15 MG/ML 1 ML VIAL IVP ONE (14:55)
--- NOTE | 2021-04-18 18:25 | PN ---
PROGRESS NOTE DATE OF SERVICE: 04/18/2021 REASON FOR FOLLOWUP: Left wrist sepsis, cellulitis. INTERVAL HISTORY: The patient was taken to the OR and this patient is status post drainage of the left wrist, dorsal area, and sepsis. Slight were noticed, which have been cultured. Patient tolerated the procedure. Patient is complaining of significant pain and pain medication stronger than the [place] the patient is getting. The patient denies having any chest pain, shortness of breath or cough. No abdominal pain or any diarrhea. PHYSICAL EXAMINATION: Blood pressure is 118/72, pulse of 70, temperature 97.3. She is 99% on room air. General description is a middle-aged female lying in bed in no distress. Respiratory system: Unlabored breathing, clear to auscultation anteriorly. Heart S1, S2. Regular rate and rhythm. Abdomen soft, no tenderness. Left wrist currently dressed. No obvious drainage on the dressing. LABS: Cultures are currently pending. The cultures from outside facility were not requested DIAGNOSTIC IMPRESSION AND PLAN: Patient with left wrist dorsum abscess and cellulitis drug use, failing outpatient oral Augmentin therapy. While waiting for the cultures to finalized, vancomycin. Dose will be adjusted up to keep the trough around 15 and monitor clinical course closely. MMODL / IJN: [id number] /
[2021-04-18] MEDS: HYDROcodone/APAP 7.5-325MG 1 EACH TAB PO PRN (19:36)
[2021-04-18] MEDS: SERTRALINE 100 MG TAB PO SCH (21:13)
[2021-04-18] MEDS: FAMOTIDINE 20 MG TAB PO SCH (21:13)
[2021-04-18] MEDS: clonazePAM 0.5 MG TAB PO PRN (21:16)
--- NOTE | 2021-04-18 21:56 | P.PN ---
Progress Note - Text Progress Note Date: 04/18/21 Chief Complaint: Left hand infection This is a pleasant 25-year-old patient who follows with Dr. John Henry. Chronic stable medical conditions include asthma, but GERD, ADHD, anxiety depression PTSD. Patient is on disability. Smokes about a pack a day. And is about to have 2 joints a day. Patient used to be IV drug abuser stopped about a year ago. Patient's had previous abscesses. About a week ago patient noticed a bump on the dorsum of the left hand. It progressively got worse. On Wednesday patient been down to the [facility] where it was I&D. She was discharged on Augmentin. It continued to get worse in terms of swelling and pain and decided to come in. Patient appetite is good. Denied any fever and chills. No nausea vomiting. Patient's grandmother and her onto the bedside. Patient does take [place] at home. Infectious disease and orthopedics were consulted. April 18: Patient is taken down to the OR today and I&D of the left hand was carried out. Currently the dressing. Purulence was cleared out. Oral intake good. Discussed with the patient increase activity. Up in a chair. Review of systems: Was done for constitutional, cardiovascular, GI, pulmonary. relevant finding as above Active Medications Hydrocodone Bitart/Acetaminophen (Hydrocodone/Apap 7.5-325mg 1 Each Tab) 1 each PO Q4HR PRN PRN Reason: Pain Last Admin: 04/18/21 19:36 Dose: 1 each Documented by: Albuterol Sulfate (Albuterol Hfa Inhaler) 2 puff INHALATION RT-Q6H PRN PRN Reason: Shortness Of Breath Clonazepam (Clonazepam 0.5 Mg Tab) 0.5 mg PO BID PRN PRN Reason: Anxiety Last Admin: 04/18/21 21:16 Dose: 0.5 mg Documented by: Enoxaparin Sodium (Enoxaparin 40 Mg/0.4 Ml Syringe) 40 mg SQ DAILY MALIK Last Admin: 04/18/21 07:59 Dose: 40 mg Documented by: Famotidine (Famotidine 20 Mg Tab) 20 mg PO BID MALIK Last Admin: 04/18/21 21:13 Dose: 20 mg Documented by: Sodium Chloride (Saline 0.9%) 1,000 mls @ 75 mls/hr IV .[id number] [facility] Last Admin: 04/18/21 14:42 Dose: Not Given Documented by: Vancomycin HCl 1,000 mg/ (Sodium Chloride) 250 mls @ 125 mls/hr IVPB Q8H [facility] Last Admin: 04/18/21 15:30 Dose: 125 mls/hr Documented by: Naloxone HCl (Naloxone 0.4 Mg/Ml 1 Ml Vial) 0.2 mg IV Q2M PRN PRN Reason: Opioid Reversal Naproxen (Naproxen 250 Mg Tab) 500 mg PO TID [facility] Last Admin: 04/18/21 21:13 Dose: 500 mg Documented by: Nicotine (Nicotine 21mg/24hr Patch) 1 patch TRANSDERM DAILY [facility] Last Admin: 04/18/21 07:58 Dose: 1 patch Documented by: Non-Formulary Medication (Lisdexamfetamine Dimesylate [Vyvanse]) 50 mg PO DAILY [facility] Last Admin: 04/18/21 09:26 Dose: Not Given Documented by: Ondansetron HCl (Ondansetron 4 Mg/2 Ml Vial) 4 mg IVP Q8HR PRN PRN Reason: Nausea And Vomiting Last Admin: 04/18/21 21:09 Dose: 4 mg Documented by: Quetiapine Fumarate (Quetiapine 25 Mg Tab) 25 mg PO HS PRN PRN Reason: Insomnia Quetiapine Fumarate (Quetiapine 50 Mg Tab) 50 mg PO HS PRN PRN Reason: sleep Sertraline HCl (Sertraline 100 Mg Tab) 200 mg PO HS [facility] Last Admin: 04/18/21 21:13 Dose: 100 mg Documented by: Past medical history to include: Asthma, Chiari malformation, diverticulitis, herniated lumbar disc, ADHD, anxiety disorder, PTSD, history of IV drug abuse Social history: Lives with her mother. Is on disability. Smokes a pack a day for close to 18 years. Smokes 2 marijuana joints a day, Motrin to 1 mg a day. No alcohol. History of IVDA up to a year ago. Family history: Reviewed, noncontributory to presentation Physical examination: VITAL SIGNS: 99, 65, 18, 102/59, 98% room air GENERAL: , sitting in bed, awake, comfortable., Multiple tattoos EYES: Pupils equal. Conjunctiva normal. NECK: JVD not raised; masses not palpable. HEART: First and second heart sounds are normal; no edema. LUNGS: Respiratory rate normal; clear to auscultation. ABDOMEN: Soft, nontender, liver spleen not palpable, no masses palpable. PSYCH: Alert and oriented x3; mood and affect anxious/hyperactivel. MUSCULAR skeletal: Left hand and (In the dressing INVESTIGATIONS, reviewed in the clinical context: April 18: Creatinine 0.5 bun Urine hCG negative White count 9.9 hemoglobin 12.7 platelets 3.7 ESR 41 potassium 3.9 creatinine 0.51 CRP 1.3 Coronavirus [PCR]: Not detected Left hand x-ray: Soft tissue swelling. No fracture seen. Assessment and plan: -Left hand infection in a previous IV drug abuser. Started a spontaneous boil that progressed to become an abscess. About a week ago. No fever and chills. She wasn't [facility] 4 days ago I&D was carried out. Started Augmentin. Now admitted to 4 symptoms not improving. IV vancomycin. naproxen [place]. Explained to the patient and no further IV pain medications this time. Also to keep moving her hands and fingers passively. Keep it elevated. I&D of the wound by Dr. Porras on April 18. -Chronic nicotine dependence, sedative smoker Nicotine patch -Recreational marijuana use Advised against the same -ADHD Continue home medications -Anxiety depression, with PTSD Continue home medications -Intermittent asthma Pro-air 2 puffs every 6 when necessary IV vancomycin. Naproxen. [place] when necessary. IV fluids. Subcu Lovenox. Increase activity.
[2021-04-19] MEDS: HYDROcodone/APAP 7.5-325MG 1 EACH TAB PO PRN ×5 (01:15→21:03)
[2021-04-19] MEDS: SODIUM CHLORIDE 0.9% 1,000 ML IV SCH ×2 (01:27→15:16)
[2021-04-19] MEDS: NON FORMULARY DRUG (Lisdexamfetamine Dimesylate [Vyvanse] 50 MG Capsule) PO SCH (07:15)
[2021-04-19] MEDS: NICOTINE 21MG/24HR PATCH TRANSDERM SCH (07:17)
[2021-04-19] MEDS: ONDANSETRON 4 MG/2 ML VIAL IVP PRN ×3 (07:18→23:12)
[2021-04-19] MEDS: VANCOMYCIN 1,000 MG in SODIUM CHLORIDE 0.9% 250 ML IVPB SCH ×3 (07:18→23:12)
[2021-04-19] MEDS: ENOXAPARIN 40 MG/0.4 ML SYRINGE SQ SCH (07:18)
[2021-04-19] MEDS: clonazePAM 0.5 MG TAB PO PRN ×2 (07:19→21:03)
[2021-04-19] MEDS: FAMOTIDINE 20 MG TAB PO SCH ×2 (07:19→21:01)
[2021-04-19] MEDS: NAPROXEN 250 MG TAB PO SCH ×3 (07:19→21:02)
[2021-04-19 07:41] LABS: African American GFR (CKD) >90 (>60 ml/min/1.73 sqM); Non-African American GFR(CKD) >90 (>60 ml/min/1.73 sqM)
--- NOTE | 2021-04-19 10:20 | P.PN ---
Subjective Progress Note Date: 04/19/21 Principal diagnosis: left dorsal wrist abscess Patient seen at bedside this morning resting comfortably. Patient says she is feeling less swelling in her hand since surgery yesterday. Patient states she is able to move her fingers better since surgery. Patient denies chest pain, fever, SOB, n/v, change in vision. Objective - Vital Signs Vital signs: Vital Signs Temp 98.3 F 04/19/21 07:52 Pulse 71 04/19/21 07:52 Resp 18 04/19/21 07:52 BP 94/60 04/19/21 07:52 Pulse Ox 99 04/19/21 07:52 Intake & Output 04/18/21 04/19/21 04/19/21 18:59 06:59 18:59 Intake Total 836 118 Output Total 3 Balance 833 118 Intake: IV 600 Oral 236 118 Output: Estimated Blood Loss 3 Other: # Voids 2 - Exam left arm: Silviano wrap and kelix bandage removed and incision visualized. Inspection: There is some mild swelling along dorsum of left hand. Swelling decreased since yesterday. Incision is clean, dry intact. Sutures are in good place/well aligned. Negative for any fluctuance/purulence. Negative for any ecchymosis, open fractures, other nodules. Sensation: Sensation is equal, symmetric, bilaterally intact throughout the upper extremities Palpation: Patient is somewhat TTP on left wrist. There is some mild tenderness patient along the left hand dorsally. Nontender to palpation throughout rest exam Range of motion: Patient is able flex and extend digits in left hand, however, patient is better able to extend digits 2-4. Patient has limited range of motion wrist flexion/extension on left side due to pain/swelling. Motor: Some weakness in resisted wrist flexion/extension on left side. Obstetric Assistant strength in left hand 3+/5. 4+/5 in all other major motor groups Neurovascular status: Refill below 3 seconds bilaterally in digits of the upper extremities. Radial pulse intact, 2+, bilaterally. Special tests: Negative Homans bilaterally Kerlix bandage and silviano wrap replaced. - Labs CBC & Chem 7: 04/16/21 20:31 04/19/21 07:01 Labs: Microbiology - Last 24 Hours (Table) 04/18/21 14:34 Gram Stain - Preliminary Wrist - Left Wound Culture - Preliminary 04/18/21 14:34 Anaerobic Culture - Preliminary Wrist - Left Assessment and Plan Assessment: 1. Left wrist dorsal abscess Post-op day #1 s/p incision and drainage with irrigation and debridement left dorsal wrist abscess Plan: 1. Left dorsal wrist abscess - patient was seen and examined at bedside this morning. Surgeyr performed yesterday, 04/18/2021 - incision and drainage with irrigation and debridement left dorsal wrist abscess. Continue with Vanco and await cultures. 2. History of IVDA 3. Appreciate medical management; appreciate ID management - patient currently on Vanco; awaiting cultures 4. Pain management - [place] 5. DVT prophylaxis - Lovenox 6. GI prophylaxis 7. PT/OT - WBAT; encourage flexion/extension of digits in left hand Time with Patient: Less than 30
[2021-04-19] MEDS ORDERED: DOCUSATE 100 MG CAP PO PRN (15:27)
--- NOTE | 2021-04-19 18:21 | P.PN ---
Progress Note - Text Progress Note Date: 04/19/21 Chief Complaint: Left hand infection This is a pleasant 25-year-old patient who follows with Dr. John Henry. Chronic stable medical conditions include asthma, but GERD, ADHD, anxiety depression PTSD. Patient is on disability. Smokes about a pack a day. And is about to have 2 joints a day. Patient used to be IV drug abuser stopped about a year ago. Patient's had previous abscesses. About a week ago patient noticed a bump on the dorsum of the left hand. It progressively got worse. On Wednesday patient been down to the [facility] where it was I&D. She was discharged on Augmentin. It continued to get worse in terms of swelling and pain and decided to come in. Patient appetite is good. Denied any fever and chills. No nausea vomiting. Patient's grandmother and her onto the bedside. Patient does take [place] at home. Infectious disease and orthopedics were consulted. April 18: Patient is taken down to the OR today and I&D of the left hand was carried out. Currently the dressing. Purulence was cleared out. Oral intake good. Discussed with the patient increase activity. Up in a chair. April 19: Left hand dressing change by orthopedics today.. Moving her fingers well. No fever no chills. Cultures pending. Oral intake good. Review of systems: Was done for constitutional, cardiovascular, GI, pulmonary. relevant finding as above Active Medications Hydrocodone Bitart/Acetaminophen (Hydrocodone/Apap 7.5-325mg 1 Each Tab) 1 each PO Q4HR PRN PRN Reason: Pain Last Admin: 04/19/21 16:53 Dose: 1 each Documented by: Albuterol Sulfate (Albuterol Hfa Inhaler) 2 puff INHALATION RT-Q6H PRN PRN Reason: Shortness Of Breath Clonazepam (Clonazepam 0.5 Mg Tab) 0.5 mg PO BID PRN PRN Reason: Anxiety Last Admin: 04/19/21 07:19 Dose: 0.5 mg Documented by: Docusate Sodium (Docusate 100 Mg Cap) 100 mg PO DAILY PRN PRN Reason: Constipation Last Admin: 04/19/21 16:53 Dose: 100 mg Documented by: Enoxaparin Sodium (Enoxaparin 40 Mg/0.4 Ml Syringe) 40 mg SQ DAILY [facility] Last Admin: 04/19/21 07:18 Dose: 40 mg Documented by: Famotidine (Famotidine 20 Mg Tab) 20 mg PO BID [facility] Last Admin: 04/19/21 07:19 Dose: 20 mg Documented by: Sodium Chloride (Saline 0.9%) 1,000 mls @ 75 mls/hr IV .[id number] [facility] Last Admin: 04/19/21 15:16 Dose: 75 mls/hr Documented by: Vancomycin HCl 1,000 mg/ (Sodium Chloride) 250 mls @ 125 mls/hr IVPB Q8H [facility] Last Admin: 04/19/21 15:15 Dose: 125 mls/hr Documented by: Naloxone HCl (Naloxone 0.4 Mg/Ml 1 Ml Vial) 0.2 mg IV Q2M PRN PRN Reason: Opioid Reversal Naproxen (Naproxen 250 Mg Tab) 500 mg PO TID [facility] Last Admin: 04/19/21 15:15 Dose: 500 mg Documented by: Nicotine (Nicotine 21mg/24hr Patch) 1 patch TRANSDERM DAILY [facility] Last Admin: 04/19/21 07:17 Dose: 1 patch Documented by: Non-Formulary Medication (Lisdexamfetamine Dimesylate [Vyvanse]) 50 mg PO DAILY [facility] Last Admin: 04/19/21 07:15 Dose: Not Given Documented by: Ondansetron HCl (Ondansetron 4 Mg/2 Ml Vial) 4 mg IVP Q8HR PRN PRN Reason: Nausea And Vomiting Last Admin: 04/19/21 15:17 Dose: 4 mg Documented by: Quetiapine Fumarate (Quetiapine 25 Mg Tab) 25 mg PO HS PRN PRN Reason: Insomnia Quetiapine Fumarate (Quetiapine 50 Mg Tab) 50 mg PO HS PRN PRN Reason: sleep Sertraline HCl (Sertraline 100 Mg Tab) 200 mg PO HS [facility] Last Admin: 04/18/21 21:13 Dose: 100 mg Documented by: Past medical history to include: Asthma, Chiari malformation, diverticulitis, herniated lumbar disc, ADHD, anxiety disorder, PTSD, history of IV drug abuse Social history: Lives with her mother. Is on disability. Smokes a pack a day for close to 18 years. Smokes 2 marijuana joints a day, Motrin to 1 mg a day. No alcohol. History of IVDA up to a year ago. Family history: Reviewed, noncontributory to presentation Physical examination: VITAL SIGNS: 98.8, 82, 18, 110/72, 99% room air GENERAL: , sitting in bed, awake, comfortable., Multiple tattoos EYES: Pupils equal. Conjunctiva normal. NECK: JVD not raised; masses not palpable. HEART: First and second heart sounds are normal; no edema. LUNGS: Respiratory rate normal; clear to auscultation. ABDOMEN: Soft, nontender, liver spleen not palpable, no masses palpable. PSYCH: Alert and oriented x3; mood and affect anxious/hyperactivel. MUSCULAR skeletal: Left handin dressing. Wound fingers well. INVESTIGATIONS, reviewed in the clinical context: April 18: Creatinine 0.5 bun Urine hCG negative White count 9.9 hemoglobin 12.7 platelets 3.7 ESR 41 potassium 3.9 creatinine 0.51 CRP 1.3 Coronavirus [PCR]: Not detected Left hand x-ray: Soft tissue swelling. No fracture seen. Assessment and plan: -Left hand infection in a previous IV drug abuser. Started a spontaneous boil that progressed to become an abscess. About a week ago. No fever and chills. She wasn't [facility] 4 days ago I&D was carried out. Started Augmentin. Now admitted to 4 symptoms not improving. IV vancomycin. naproxen [place]. Explained to the patient and no further IV pain medications this time. Also to keep moving her hands and fingers passively. Keep it elevated. I&D of the wound by Dr. Ochoa on April 18. -Chronic nicotine dependence, sedative smoker Nicotine patch -Recreational marijuana use Advised against the same -ADHD Continue home medications -Anxiety depression, with PTSD Continue home medications -Intermittent asthma Pro-air 2 puffs every 6 when necessary IV vancomycin. Naproxen. [place] when necessary. Stop IV fluids. Subcu Lovenox. Doing better. Current cutback the dose of naproxen
--- NOTE | 2021-04-19 18:53 | PN ---
PROGRESS NOTE DATE OF SERVICE: 04/19/2021 REASON FOR FOLLOWUP: Left wrist dorsum abscess and cellulitis. INTERVAL HISTORY: The patient is afebrile. The patient is feeling better today, breathing comfortably. The patient denies having any chest pain, shortness of breath or cough. No abdominal pain or diarrhea. PHYSICAL EXAMINATION: Blood pressure 110/72 with a pulse of 82, temperature 98.8. She is 99% on room air. General description is a middle-aged female lying in bed in no distress. Respiratory system: Unlabored breathing, clear to auscultation anteriorly. Heart S1, S2. Regular rate and rhythm. Abdomen soft, no tenderness. Left wrist is currently dressed. No obvious drainage on the dressing. LABS: Creatinine 0.56. Cultures are currently pending. DIAGNOSTIC IMPRESSION AND PLAN: Patient with left wrist dorsum area abscess, status post drainage, failing outpatient oral antibiotic therapy, possible MRSA. We are waiting for the culture to finalize. Continue with vancomycin. Kidney function normal. She did have multiple questions. Those were answered. MMODL / IJN: [id number] /
[2021-04-19] MEDS: SERTRALINE 100 MG TAB PO SCH (21:01)
[2021-04-20] MEDS: HYDROcodone/APAP 7.5-325MG 1 EACH TAB PO PRN ×6 (01:15→20:30)
[2021-04-20] MEDS: NON FORMULARY DRUG (Lisdexamfetamine Dimesylate [Vyvanse] 50 MG Capsule) PO SCH (06:54)
[2021-04-20] MEDS: clonazePAM 0.5 MG TAB PO PRN ×2 (07:47→20:29)
[2021-04-20] MEDS: ONDANSETRON 4 MG/2 ML VIAL IVP PRN ×2 (07:48→20:37)
[2021-04-20] MEDS: FAMOTIDINE 20 MG TAB PO SCH ×2 (07:48→20:29)
[2021-04-20] MEDS: NAPROXEN 250 MG TAB PO SCH ×3 (07:48→20:30)
[2021-04-20] MEDS: VANCOMYCIN 1,000 MG in SODIUM CHLORIDE 0.9% 250 ML IVPB SCH ×3 (07:49→22:52)
[2021-04-20] MEDS: ENOXAPARIN 40 MG/0.4 ML SYRINGE SQ SCH (07:49)
[2021-04-20] MEDS: NICOTINE 21MG/24HR PATCH TRANSDERM SCH (07:49)
[2021-04-20 08:34] LABS: African American GFR (CKD) >90 (>60 ml/min/1.73 sqM); Non-African American GFR(CKD) >90 (>60 ml/min/1.73 sqM)
--- NOTE | 2021-04-20 09:17 | P.PN ---
Subjective Progress Note Date: 04/20/21 Principal diagnosis: left dorsal wrist abscess Patient seen at bedside this morning resting comfortably. Patient says she is feeling less swelling in her hand since surgery yesterday. Patient states she is able to move her fingers better since surgery. Patient denies chest pain, fever, SOB, n/v, change in vision. Objective - Vital Signs Vital signs: Vital Signs Temp 98.7 F 04/20/21 08:00 Pulse 56 L 04/20/21 08:00 Resp 18 04/20/21 08:00 BP 94/60 04/20/21 08:00 Pulse Ox 99 04/20/21 08:00 Intake & Output 04/19/21 04/20/21 04/20/21 18:59 06:59 18:59 Intake Total 354 Balance 354 Intake: Oral 354 Other: # Voids 2 2 - Exam left arm: Silviano wrap present over left wrist Inspection: There is some mild swelling along dorsum of left hand. Swelling decreased since yesterday. Incision is clean, dry intact. Sutures are in good place/well aligned. Negative for any fluctuance/purulence. Negative for any ecchymosis, open fractures, other nodules. Sensation: Sensation is equal, symmetric, bilaterally intact throughout the upper extremities Palpation: Patient is somewhat TTP on left wrist. There is some mild tenderness patient along the left hand dorsally. Nontender to palpation throughout rest exam Range of motion: Patient is able flex and extend digits in left hand, however, patient is better able to extend digits 2-4. Patient has limited range of motion wrist flexion/extension on left side due to pain/swelling. Motor: Some weakness in resisted wrist flexion/extension on left side. Spooler Operator strength in left hand 3+/5. 4+/5 in all other major motor groups Neurovascular status: Refill below 3 seconds bilaterally in digits of the upper extremities. Radial pulse intact, 2+, bilaterally. Special tests: Negative Homans bilaterally - Labs CBC & Chem 7: 04/16/21 20:31 04/20/21 08:02 Labs: Microbiology - Last 24 Hours (Table) 04/18/21 14:34 Gram Stain - Preliminary Wrist - Left Wound Culture - Preliminary Assessment and Plan Assessment: 1. Left wrist dorsal abscess Post-op day #2 s/p incision and drainage with irrigation and debridement left dorsal wrist abscess Plan: 1. Left dorsal wrist abscess - patient was seen and examined at bedside this morning. Surgery performed 04/18/2021 - incision and drainage with irrigation and debridement left dorsal wrist abscess. Continue with Vanco and await cultures. 2. History of IVDA 3. Appreciate medical management; appreciate ID management - patient currently on Vanco; awaiting cultures 4. Pain management - [place] 5. DVT prophylaxis - Lovenox 6. GI prophylaxis 7. PT/OT - WBAT; encourage flexion/extension of digits in left hand Time with Patient: Less than 30
[2021-04-20] MEDS ORDERED: LACTULOSE 20 GM/30 ML CUP PO ONE (13:16)
--- NOTE | 2021-04-20 16:55 | P.PN ---
Progress Note - Text Progress Note Date: 04/20/21 Chief Complaint: Left hand infection This is a pleasant 25-year-old patient who follows with Dr. John Henry. Chronic stable medical conditions include asthma, but GERD, ADHD, anxiety depression PTSD. Patient is on disability. Smokes about a pack a day. And is about to have 2 joints a day. Patient used to be IV drug abuser stopped about a year ago. Patient's had previous abscesses. About a week ago patient noticed a bump on the dorsum of the left hand. It progressively got worse. On Wednesday patient been down to the [facility] where it was I&D. She was discharged on Augmentin. It continued to get worse in terms of swelling and pain and decided to come in. Patient appetite is good. Denied any fever and chills. No nausea vomiting. Patient's grandmother and her onto the bedside. Patient does take [place] at home. Infectious disease and orthopedics were consulted. April 18: Patient is taken down to the OR today and I&D of the left hand was carried out. Currently the dressing. Purulence was cleared out. Oral intake good. Discussed with the patient increase activity. Up in a chair. April 19: Left hand dressing change by orthopedics today.. Moving her fingers well. No fever no chills. Cultures pending. Oral intake good. April 20: Left hand feeling better. No fever no chills. Moving her fingers well. Oral intake good. Constipated. Lactulose ordered. Anaerobic culture pending. Review of systems: Was done for constitutional, cardiovascular, GI, pulmonary. relevant finding as above Active Medications Hydrocodone Bitart/Acetaminophen (Hydrocodone/Apap 7.5-325mg 1 Each Tab) 1 each PO Q4HR PRN PRN Reason: Pain Last Admin: 04/20/21 12:38 Dose: 1 each Documented by: Albuterol Sulfate (Albuterol Hfa Inhaler) 2 puff INHALATION RT-Q6H PRN PRN Reason: Shortness Of Breath Clonazepam (Clonazepam 0.5 Mg Tab) 0.5 mg PO BID PRN PRN Reason: Anxiety Last Admin: 04/20/21 07:47 Dose: 0.5 mg Documented by: Docusate Sodium (Docusate 100 Mg Cap) 100 mg PO DAILY PRN PRN Reason: Constipation Last Admin: 04/19/21 16:53 Dose: 100 mg Documented by: Enoxaparin Sodium (Enoxaparin 40 Mg/0.4 Ml Syringe) 40 mg SQ DAILY [facility] Last Admin: 04/20/21 07:49 Dose: 40 mg Documented by: Famotidine (Famotidine 20 Mg Tab) 20 mg PO BID [facility] Last Admin: 04/20/21 07:48 Dose: 20 mg Documented by: Vancomycin HCl 1,000 mg/ (Sodium Chloride) 250 mls @ 125 mls/hr IVPB Q8H [facility] Last Admin: 04/20/21 15:12 Dose: 125 mls/hr Documented by: Naloxone HCl (Naloxone 0.4 Mg/Ml 1 Ml Vial) 0.2 mg IV Q2M PRN PRN Reason: Opioid Reversal Naproxen (Naproxen 250 Mg Tab) 250 mg PO TID [facility] Last Admin: 04/20/21 15:13 Dose: 250 mg Documented by: Nicotine (Nicotine 21mg/24hr Patch) 1 patch TRANSDERM DAILY [facility] Last Admin: 04/20/21 07:49 Dose: 1 patch Documented by: Non-Formulary Medication (Lisdexamfetamine Dimesylate [Vyvanse]) 50 mg PO DAILY [facility] Last Admin: 04/20/21 06:54 Dose: Not Given Documented by: Ondansetron HCl (Ondansetron 4 Mg/2 Ml Vial) 4 mg IVP Q8HR PRN PRN Reason: Nausea And Vomiting Last Admin: 04/20/21 07:48 Dose: 4 mg Documented by: Quetiapine Fumarate (Quetiapine 25 Mg Tab) 25 mg PO HS PRN PRN Reason: Insomnia Sertraline HCl (Sertraline 100 Mg Tab) 200 mg PO HS [facility] Last Admin: 04/19/21 21:01 Dose: 100 mg Documented by: Past medical history to include: Asthma, Chiari malformation, diverticulitis, herniated lumbar disc, ADHD, anxiety disorder, PTSD, history of IV drug abuse Social history: Lives with her mother. Is on disability. Smokes a pack a day for close to 18 years. Smokes 2 marijuana joints a day, Motrin to 1 mg a day. No alcohol. History of IVDA up to a year ago. Family history: Reviewed, noncontributory to presentation Physical examination: VITAL SIGNS: 98.8, 70, 18, 99/63, 100% room air GENERAL: , sitting in bed, awake, comfortable., Multiple tattoos EYES: Pupils equal. Conjunctiva normal. NECK: JVD not raised; masses not palpable. HEART: First and second heart sounds are normal; no edema. LUNGS: Respiratory rate normal; clear to auscultation. ABDOMEN: Soft, nontender, liver spleen not palpable, no masses palpable. PSYCH: Alert and oriented x3; mood and affect anxious/hyperactivel. MUSCULAR skeletal: Left hand in dressing. Moving fingers well. INVESTIGATIONS, reviewed in the clinical context: April 20: Creatinine 0.58 Wound culture: Negative April 18: Creatinine 0.5 bun Urine hCG negative White count 9.9 hemoglobin 12.7 platelets 3.7 ESR 41 potassium 3.9 creatinine 0.51 CRP 1.3 Coronavirus [PCR]: Not detected Left hand x-ray: Soft tissue swelling. No fracture seen. Assessment and plan: -Left hand infection in a previous IV drug abuser. Started a spontaneous boil that progressed to become an abscess. About a week ago. No fever and chills. She wasn't [facility] 4 days ago I&D was carried out. Started Augmentin. Now admitted to 4 symptoms not improving. IV vancomycin. naproxen [place]. Explained to the patient and no further IV pain medications this time. Also to keep moving her hands and fingers passively. Keep it elevated. I&D of the wound by Dr. Ochoa on April 18. Wound culture negative currently. -Chronic nicotine dependence, sedative smoker Nicotine patch -Recreational marijuana use Advised against the same -ADHD Continue home medications -Anxiety depression, with PTSD Continue home medications -Intermittent asthma Pro-air 2 puffs every 6 when necessary IV vancomycin. Naproxen. [place] when necessary. Discussed with patient's. DC antibiotics, per Dr. Conrad
[2021-04-20] MEDS: SERTRALINE 100 MG TAB PO SCH (20:31)
[2021-04-21] MEDS: HYDROcodone/APAP 7.5-325MG 1 EACH TAB PO PRN ×3 (00:31→10:19)
[2021-04-21 05:48] VITALS: RESP 16
[2021-04-21 07:14] LABS: African American GFR (CKD) >90 (>60 ml/min/1.73 sqM); Non-African American GFR(CKD) >90 (>60 ml/min/1.73 sqM)
[2021-04-21 07:15] LABS: Basophils % (A) 0 %; Eosinophils # (A) 0.2 k/uL (0-0.7); Eosinophils % (A) 3 %; HCT 33.5 % (34.0-46.0); HGB 11.1 gm/dL (11.4-16.0); Lymphocytes # (A) 2.9 k/uL (1.0-4.8); Lymphocytes % (A) 32 %; MCH 31.9 pg (25.0-35.0); MCHC 33.2 g/dL (31.0-37.0); MCV 95.9 fL (80.0-100.0); Mean Platelet Volume 7.4; Monocytes # (A) 0.5 k/uL (0-1.0); Monocytes % (A) 6 %; Neutrophils # (A) 5.1 k/uL (1.3-7.7); Neutrophils % (A) 58 %; Platelet Count 315 k/uL (150-450); RBC 3.49 m/uL (3.80-5.40); RDW 12.8 % (11.5-15.5); WBC 8.9 k/uL (3.8-10.6)
[2021-04-21] MEDS: VANCOMYCIN 1,000 MG in SODIUM CHLORIDE 0.9% 250 ML IVPB SCH (07:16)
[2021-04-21] MEDS: NAPROXEN 250 MG TAB PO SCH (07:47)
[2021-04-21] MEDS: ENOXAPARIN 40 MG/0.4 ML SYRINGE SQ SCH (07:49)
[2021-04-21] MEDS: FAMOTIDINE 20 MG TAB PO SCH (07:49)
[2021-04-21] MEDS: NICOTINE 21MG/24HR PATCH TRANSDERM SCH (07:49)
[2021-04-21 08:34] VITALS: BP 100/67; PULSE 65; TEMP 97.8
[2021-04-21] MEDS: NON FORMULARY DRUG (Lisdexamfetamine Dimesylate [Vyvanse] 50 MG Capsule) PO SCH (10:24)
--- NOTE | 2021-04-21 12:14 | P.PN ---
Subjective Progress Note Date: 04/21/21 Principal diagnosis: left dorsal wrist abscess Patient seen at bedside this morning resting comfortably. Patient says she is feeling less swelling in her hand since surgery. Patient states she is able to move her fingers better since surgery. Patient denies chest pain, fever, SOB, n/v, change in vision. Objective - Vital Signs Vital signs: Vital Signs Temp 97.8 F 04/21/21 08:00 Pulse 65 04/21/21 08:00 Resp 16 04/21/21 08:00 BP 100/67 04/21/21 08:00 Pulse Ox 100 04/21/21 08:00 Intake & Output 04/20/21 04/21/21 04/21/21 18:59 06:59 18:59 Intake Total 318 Balance 318 Intake: Oral 318 Other: # Voids 5 2 - Exam left arm: Silviano wrap present over left wrist Inspection: There is some mild swelling along dorsum of left hand. Swelling decreased since yesterday. Incision is clean, dry intact. Sutures are in good place/well aligned. Negative for any fluctuance/purulence. Negative for any ecchymosis, open fractures, other nodules. Sensation: Sensation is equal, symmetric, bilaterally intact throughout the upper extremities Palpation: Patient is somewhat TTP on left wrist. There is some mild tenderness patient along the left hand dorsally. Nontender to palpation throughout rest exam Range of motion: Patient is able flex and extend digits in left hand, however, patient is better able to extend digits 2-4. Patient has limited range of motion wrist flexion/extension on left side due to pain/swelling. Motor: Some weakness in resisted wrist flexion/extension on left side. Real Estate Instructor strength in left hand 3+/5. 4+/5 in all other major motor groups Neurovascular status: Refill below 3 seconds bilaterally in digits of the upper extremities. Radial pulse intact, 2+, bilaterally. Special tests: Negative Homans bilaterally - Labs CBC & Chem 7: 04/21/21 06:45 04/21/21 06:45 Labs: Abnormal Lab Results - Last 24 Hours (Table) 04/21/21 Range/Units 06:45 RBC 3.49 L (3.80-5.40) m/uL Hgb 11.1 L (11.4-16.0) gm/dL Hct 33.5 L (34.0-46.0) % Microbiology - Last 24 Hours (Table) 04/18/21 14:34 Anaerobic Culture - Preliminary Wrist - Left 04/18/21 14:34 Gram Stain - Final Wrist - Left Wound Culture - Final Assessment and Plan Assessment: 1. Left wrist dorsal abscess Post-op day #3 s/p incision and drainage with irrigation and debridement left dorsal wrist abscess Plan: 1. Left dorsal wrist abscess - patient was seen and examined at bedside this morning. Surgery performed 04/18/2021 - incision and drainage with irrigation and debridement left dorsal wrist abscess. cultures finalized - no organisms. Patient stable from orthopedic standpoint for discharge home. At this time orthopedics is signing off. Please do not hesitate to contact us for any further questions. Follow up in office in 2 weeks. 2. History of IVDA 3. Appreciate medical management; appreciate ID management - cultures negative 4. Pain management - [place] in hospital. Discharge home with tylenool 650 mg 5. DVT prophylaxis - Lovenox 6. GI prophylaxis 7. PT/OT - WBAT; encourage flexion/extension of digits in left hand Time with Patient: Less than 30
--- NOTE | 2021-04-21 21:42 | P.PN ---
Progress Note - Text Progress Note Date: 04/21/21 REASON FOR FOLLOWUP: Left wrist dorsum abscess and cellulitis. INTERVAL HISTORY: The patient is afebrile. The patient is breathing comfortably. The patient denies having any chest pain, shortness of breath or cough. No abdominal pain or diarrhea. left wrist pain decreased in intensity PHYSICAL EXAMINATION: Blood pressure 110/72 with a pulse of 82, temperature 98.8. She is 99% on room air. General description is a middle-aged female lying in bed in no distress. Respiratory system: Unlabored breathing, clear to auscultation anteriorly. Heart S1, S2. Regular rate and rhythm. Abdomen soft, no tenderness. Left wrist is currently dressed. mention the area looked good at time of dressing changes early LABS: Cultures NEGATIVE DIAGNOSTIC IMPRESSION AND PLAN: Patient with left wrist dorsum area abscess, status post drainage, failing outpatient oral antibiotic therapy, Cultures done at time of surgery negative for MRSA , plan to finish therapy with oral augmentin and close outpatient follow up
--- NOTE | 2021-04-21 22:21 | P.DS ---
Providers Date of admission: 04/18/21 09:14 Expected date of discharge: 04/21/21 Attending physician: Vivek Edmondson Consults: 04/16/21 21:38 Consult Physician Routine Consulting Provider: Maya Carroll Consult Reason/Comments: Left wrist asbcess; left hand cellulitis Do you want consulting provider notified?: Yes 04/16/21 21:44 Consult Physician Routine Consulting Provider: Sami Ochoa Consult Reason/Comments: Left hand cellulitis; left wrist abscess Do you want consulting provider notified?: Already Contacted Primary care physician: John [facility] Course: Chief Complaint: Left hand infection This is a pleasant 25-year-old patient who follows with Dr. John Henry. Chronic stable medical conditions include asthma, but GERD, ADHD, anxiety depression PTSD. Patient is on disability. Smokes about a pack a day. And is about to have 2 joints a day. Patient used to be IV drug abuser stopped about a year ago. Patient's had previous abscesses. About a week ago patient noticed a bump on the dorsum of the left hand. It progressively got worse. On Wednesday patient been down to the [facility] where it was I&D. She was discharged on Augmentin. It continued to get worse in terms of swelling and pain and decided to come in. Patient appetite is good. Denied any fever and chills. No nausea vomiting. Patient's grandmother and her onto the bedside. Patient does take Clinton at home. Infectious disease and orthopedics were consulted. April 18: Patient is taken down to the OR today and I&D of the left hand was carried out. Currently the dressing. Purulence was cleared out. Oral intake good. Discussed with the patient increase activity. Up in a chair. April 19: Left hand dressing change by orthopedics today.. Moving her fingers well. No fever no chills. Cultures pending. Oral intake good. April 20: Left hand feeling better. No fever no chills. Moving her fingers well. Oral intake good. Constipated. Lactulose ordered. Anaerobic culture pending. April 21: And feeling much improved. No fever no chills. Moving all fingers well. Cultures be negative. Discussed with Dr. Conrad from ID. Patient to complete course at home with Augmentin. Wound care per orthopedics. Consultation: Dr. Glen from ID Dr. Ochoa from orthopedics Past medical history to include: Asthma, Chiari malformation, diverticulitis, herniated lumbar disc, ADHD, anxiety disorder, PTSD, history of IV drug abuse Social history: Lives with her mother. Is on disability. Smokes a pack a day for close to 18 years. Smokes 2 marijuana joints a day, Motrin to 1 mg a day. No alcohol. History of IVDA up to a year ago. Family history: Reviewed, noncontributory to presentation Physical examination: VITAL SIGNS: 97.8, 65, 16, 100/67, 100% room air GENERAL: , , comfortable., Multiple tattoos EYES: Pupils equal. Conjunctiva normal. NECK: JVD not raised; masses not palpable. HEART: First and second heart sounds are normal; no edema. LUNGS: Respiratory rate normal; clear to auscultation. ABDOMEN: Soft, nontender, liver spleen not palpable, no masses palpable. PSYCH: Alert and oriented x3; mood and affect anxious/hyperactivel. MUSCULAR skeletal: Left hand in dressing. Moving fingers well. INVESTIGATIONS, reviewed in the clinical context: April 21: White count 8.9 hemoglobin 11.1 April 20: Creatinine 0.58 Wound culture: Negative April 18: Creatinine 0.5 bun Urine hCG negative White count 9.9 hemoglobin 12.7 platelets 3.7 ESR 41 potassium 3.9 creatinine 0.51 CRP 1.3 Coronavirus [PCR]: Not detected Left hand x-ray: Soft tissue swelling. No fracture seen. Assessment and plan: -Left hand infection in a previous IV drug abuser. Started a spontaneous boil that progressed to become an abscess. About a week ago. No fever and chills. She wasn't [facility] 4 days ago I&D was carried out. Started Augmentin. Now admitted to 4 symptoms not improving. IV vancomycin. naproxen Clinton. Explained to the patient and no further IV pain medications this time. Also to keep moving her hands and fingers passively. Keep it elevated. I&D of the wound by Dr. Ochoa on April 18. Wound culture negative currently. Discharged in Augmentin -Chronic nicotine dependence, sedative smoker Nicotine patch -Recreational marijuana use Advised against the same -ADHD Continue home medications -Anxiety depression, with PTSD Continue home medications -Intermittent asthma Pro-air 2 puffs every 6 when necessary Disposition: Home Plan - Discharge Summary New Discharge Prescriptions: New Nicotine 21Mg/24Hr Patch [Habitrol] 1 patch TRANSDERM DAILY #14 patch Naproxen [Naprosyn] 250 mg PO BID #20 tab Acetaminophen Tab [Tylenol] 650 mg PO Q6H #20 tab Continue Albuterol Sulfate [Proair Hfa] 2 puff INHALATION RT-Q6H PRN PRN Reason: Shortness Of Breath Sertraline HCl [Zoloft] 200 mg PO HS QUEtiapine [SEROquel] 50 mg PO HS PRN PRN Reason: sleep clonazePAM [KlonoPIN] 0.5 mg PO BID PRN PRN Reason: Anxiety HYDROcodone/APAP 7.5-325MG [Clinton 7.5-325] 1 tab PO TID PRN PRN Reason: Pain QUEtiapine [SEROquel] 25 mg PO HS PRN PRN Reason: Insomnia Lisdexamfetamine Dimesylate [Vyvanse] 50 mg PO DAILY Amoxic-Pot Clav 500-125 mg [Augmentin 500-125 mg] 1 tab PO Q8H Discharge Medication List Albuterol Sulfate [Proair Hfa] 2 puff INHALATION RT-Q6H PRN 03/21/19 [History] QUEtiapine [SEROquel] 50 mg PO HS PRN 08/01/20 [History] Sertraline HCl [Zoloft] 200 mg PO HS 08/01/20 [History] QUEtiapine [SEROquel] 25 mg PO HS PRN 08/13/20 [History] Amoxic-Pot Clav 500-125 mg [Augmentin 500-125 mg] 1 tab PO Q8H 04/16/21 [History] HYDROcodone/APAP 7.5-325MG [Clinton 7.5-325] 1 tab PO TID PRN 04/16/21 [History] Lisdexamfetamine Dimesylate [Vyvanse] 50 mg PO DAILY 04/16/21 [History] clonazePAM [KlonoPIN] 0.5 mg PO BID PRN 04/16/21 [History] Acetaminophen Tab [Tylenol] 650 mg PO Q6H #20 tab 04/21/21 [Rx] Naproxen [Naprosyn] 250 mg PO BID #20 tab 04/21/21 [Rx] Nicotine 21Mg/24Hr Patch [Habitrol] 1 patch TRANSDERM DAILY #14 patch 04/21/21 [Rx] Follow up Appointment(s)/Referral(s): Michael Gill PAC [PHYSICIAN EXAMINER OF CURRENCY] - 05/08/21 9:00 am John Henry MD [Primary Care Provider] - 1-2 days Patient Instructions/Handouts: Cellulitis (GEN), Abscess (GEN) Activity/Diet/Wound Care/Special Instructions: -keep incision clean, dry, intact. -tylenol 650 mg for pain; do NOT take more than 4,000 mg per day - follow up in office in 2 weeks Discharge Disposition: HOME SELF-CARE
== END 2021-04-21 13:20 | disposition home or self-care (01) | DRG 571 ==
LOC: EC 15:52 → 3NCARDOBS 21:49 → 6NMEDSUR 04-17 17:28 → OBSVTOIN 04-18 09:14
PROVIDERS: ADMIT Hospitalist; ATTEND Hospitalist
PROC: 0JBH0ZZ Excision of Left Lower Arm Subcutaneous Tissue and Fascia, Open Approach (ICD-10-PCS; principal; 2021-04-18 12:15)
DX: L02.512 Cutaneous abscess of left hand (principal); L03.114 Cellulitis of left upper limb; L02.414 Cutaneous abscess of left upper limb; M00.832 Arthritis due to other bacteria, left wrist; K59.00 Constipation, unspecified; K21.9 Gastro-esophageal reflux disease without esophagitis; Z20.822 Contact with and (suspected) exposure to COVID-19; J45.20 Mild intermittent asthma, uncomplicated; M51.26 Other intervertebral disc displacement, lumbar region; F90.9 Attention-deficit hyperactivity disorder, unspecified type; F43.10 Post-traumatic stress disorder, unspecified; F41.8 Other specified anxiety disorders; F41.0 Panic disorder [episodic paroxysmal anxiety]; F17.210 Nicotine dependence, cigarettes, uncomplicated; F12.90 Cannabis use, unspecified, uncomplicated; Z87.19 Personal history of other diseases of the digestive system; Z71.51 Drug abuse counseling and surveillance of drug abuser; Z86.79 Personal history of other diseases of the circulatory system
CPT/HCPCS: 36415; 80048; 80053; 80202; 81025; 82565; 83605; 84145; 85025; 85652; 86140; 87070; 87075; 87205; 87635; 96374; 96375; 99284

== ENCOUNTER → 2021-08-25 | Outpatient (CLI) | payer OTHER ==
--- NOTE | 2021-08-25 16:03 | US ---
EXAMINATION TYPE: US kidneys/renal and bladder DATE OF EXAM: 08/25/2021 COMPARISON: US 10/01/16, CT August 13, 2020 CLINICAL HISTORY: N28.1 Renal cyst. History of renal cysts. 2 cysts removed from right kidney 1 year ago. EXAM MEASUREMENTS: Right Kidney: 11.1 x 4.6 x 4.5 cm Left Kidney: 11.5 x 5.2 x 4.6 cm Post Void Residual Volume: 9.2 mL Right Kidney: No hydronephrosis or masses seen. septated lower pole cyst = 1.2 x 1.2 x 1.1 cm Left Kidney: No hydronephrosis or masses seen, Mid/upper cyst = 1.5 x 1.1 x 1.0 cm, Medial lower cyst = 0.6 cm, full renal pelvis = 1.2 cm Bladder: wnl Bilateral Jets seen: Yes Normal Post Void Residual: Yes There is mild left-sided hydronephrosis. No nephrolithiasis is seen. Interval successful treatment o r resolution of prior right renal complex lesion. The urinary bladder is adequately distended. Bila teral ureteral jets are seen. After voiding minimal residual urine. Incidental finding of right ovarian cyst = 3.2 x 2.8 x 2.5 cm IMPRESSION: As above. New Mild left-sided hydronephrosis present may warrant further clinical workup .
== END | disposition home or self-care (01) ==
LOC: RADUSWWP 14:39
PROVIDERS: ATTEND Urology
DX: N13.30 Unspecified hydronephrosis (principal); N83.201 Unspecified ovarian cyst, right side; R39.198 Other difficulties with micturition
CPT/HCPCS: 76770

== ENCOUNTER 2022-02-18 04:26 | Inpatient (IN) | payer OTHER ==
--- NOTE | 2022-02-18 04:56 | ED ---
Skin/Abscess/FB HPI - General Chief complaint: Skin/Abscess/Foreign Body Stated complaint: Abscess Time Seen by Provider: 02/18/22 04:30 Source: patient, RN notes reviewed, old records reviewed Mode of arrival: ambulatory - History of Present Illness Initial comments: This is a 26-year-old female he does do IV drugs relation likely infection. Patient does feel feverish at times. She is able to move her hand completely. No other complaints MD complaint: rash, abscess/boil -: hour(s) Severity: severe Severity scale (1-10): 8 Quality: stabbing, aching Consistency: constant Improves with: none Worsens with: none Context: IVDA Associated symptoms: chills, nausea Treatments Prior to Arrival: none - Related Data Home Medications Medication Instructions Recorded Confirmed Albuterol Sulfate [Proair Hfa] 2 puff INHALATION RT-Q6H PRN 03/21/19 02/18/22 QUEtiapine [SEROquel] 50 mg PO HS 08/01/20 02/18/22 Sertraline HCl [Zoloft] 200 mg PO HS 08/01/20 02/18/22 QUEtiapine [SEROquel] 25 mg PO HS 08/13/20 02/18/22 Ergocalciferol (Vitamin D2) 1,250 mcg PO Q7D 02/18/22 02/18/22 [Drisdol (50,000 Iu)] Lisdexamfetamine Dimesylate 70 mg PO DAILY 02/18/22 02/18/22 [Vyvanse] OXcarbazepine [Trileptal] 150 mg PO HS 02/18/22 02/18/22 hydrOXYzine HCL [Atarax] 10 mg PO BID PRN 02/18/22 02/18/22 rOPINIRole HCL [Requip] 2 mg PO HS 02/18/22 02/18/22 Previous Rx's Medication Instructions Recorded Amoxic-Pot Clav 875-125Mg 1 tab PO BID 14 Days #28 tab 02/23/22 [Augmentin 875-125] Ibuprofen [Motrin] 800 mg PO Q8H #30 tab 02/23/22 Allergies Allergy/AdvReac Type Severity Reaction Status Date / Time morphine AdvReac Nausea & Verified 02/18/22 11:46 Vomiting tramadol AdvReac Nausea & Verified 02/18/22 11:46 Vomiting Review of Systems ROS Statement: Those systems with pertinent positive or pertinent negative responses have been documented in the HPI. ROS Other: All systems not noted in ROS Statement are negative. Past Medical History Past Medical History: Asthma, Musculoskeletal Disorder Additional Past Medical History / Comment(s): chiari malformation, diverticulitis, DDD, herniated lumbar disc., receives toradol injections, states hx of palpitations, cysts on kidney, History of Any Multi-Drug Resistant Organisms: None Reported Past Surgical History: No Surgical Hx Reported Additional Past Surgical History / Comment(s): wisdom teeth removed, cyst removed from kidney. I&D lt hand abcess Apr 2021 Past Anesthesia/Blood Transfusion Reactions: Family History of Problems w/ Anesthesia Additional Past Anesthesia/Blood Transfusion Reaction / Comment(s): no anesthesia hx. emotional when waking up after wisdom teeth. Patients Mother gets PONV and combative. Past Psychological History: ADD/ADHD, Anxiety, Depression, Panic Disorder, PTSD Smoking Status: Current every day smoker Past Alcohol Use History: None Reported Past Drug Use History: Marijuana - Past Family History Mother Family Medical History: No Reported History General Exam General appearance: alert, in no apparent distress Head exam: Present: atraumatic, normocephalic, normal inspection Eye exam: Present: normal appearance, PERRL, EOMI. Absent: scleral icterus, conjunctival injection, periorbital swelling ENT exam: Present: normal exam, mucous membranes moist Neck exam: Present: normal inspection. Absent: tenderness, meningismus, lymphadenopathy Respiratory exam: Present: normal lung sounds bilaterally. Absent: respiratory distress, wheezes, rales, rhonchi, stridor Cardiovascular Exam: Present: regular rate, normal rhythm, normal heart sounds. Absent: systolic murmur, diastolic murmur, rubs, gallop, clicks GI/Abdominal exam: Present: soft, normal bowel sounds. Absent: distended, tenderness, guarding, rebound, rigid Extremities exam: Present: normal inspection, full ROM, normal capillary refill. Absent: tenderness, pedal edema, joint swelling, calf tenderness Back exam: Present: normal inspection Neurological exam: Present: alert, oriented X3, CN II-XII intact Psychiatric exam: Present: normal affect, normal mood Skin exam: Present: warm, dry, intact, normal color. Absent: rash Course Vital Signs 02/18/22 02/18/22 04:29 06:15 Temperature 99.5 F 98.5 F Pulse Rate 124 H 94 Respiratory 18 18 Rate Blood Pressure 130/78 102/62 O2 Sat by Pulse 100 98 Oximetry - Reevaluation(s) Reevaluation #1: 02/18/22 Medical record is reviewed patient has mild pain improvement here in the ER Patient informed results and questions answered Procedures - Incision & Drainage Consent Obtained: verbal consent Indication: abscess Site: hand Anesthetic Used: lidocaine 1% I&D Cleaning Method: Betadine Sterile Field Used?: Yes Scalpel Used: #11 Needle Aspiration Performed?: No Irrigation Performed?: No I&D Drainage Obtained: Pus Culture Obtained?: No Complications: pain Patient Tolerated Procedure: well Medical Decision Making - Medical Decision Making 6 female did undergo eye injury of dorsal aspect of right hand. Patient still with significant pain despite successful IND. Patient be admitted for IV antibiotics and evaluation by hand surgery - Lab Data Result diagrams: 02/21/22 05:11 02/23/22 05:21 Lab Results 02/18/22 02/18/22 02/18/22 Range/Units 05:46 05:46 05:46 WBC 10.3 (3.8-10.6) k/uL RBC 4.05 (3.80-5.40) m/uL Hgb 12.4 (11.4-16.0) gm/dL Hct 34.9 (34.0-46.0) % MCV 86.1 (80.0-100.0) fL MCH 30.5 (25.0-35.0) pg MCHC 35.5 (31.0-37.0) g/dL RDW 11.8 (11.5-15.5) % Plt Count 145 L (150-450) k/uL MPV 8.6 Neutrophils % 73 % Lymphocytes % 19 % Monocytes % 7 % Eosinophils % 1 % Basophils % 0 % Neutrophils # 7.4 (1.3-7.7) k/uL Lymphocytes # 1.9 (1.0-4.8) k/uL Monocytes # 0.7 (0-1.0) k/uL Eosinophils # 0.1 (0-0.7) k/uL Basophils # 0.0 (0-0.2) k/uL PT (9.0-12.0) sec INR (<1.2) APTT (22.0-30.0) sec Sodium 130 L (137-145) mmol/L Potassium 4.3 (3.5-5.1) mmol/L Chloride 97 L (98-107) mmol/L Carbon Dioxide 24 (22-30) mmol/L Anion Gap 9 mmol/L BUN 7 (7-17) mg/dL Creatinine 0.48 L (0.52-1.04) mg/dL Est GFR (CKD-EPI)AfAm >90 (>60 ml/min/1.73 sqM) Est GFR (CKD-EPI)NonAf >90 (>60 ml/min/1.73 sqM) Glucose 87 (74-99) mg/dL Plasma Lactic Acid Davon 1.1 (0.7-2.0) mmol/L Calcium 8.7 (8.4-10.2) mg/dL Phosphorus 4.5 (2.5-4.5) mg/dL Magnesium 1.7 (1.6-2.3) mg/dL Total Bilirubin 1.2 (0.2-1.3) mg/dL AST 31 (14-36) U/L ALT 15 (4-34) U/L Alkaline Phosphatase 57 (38-126) U/L Total Protein 7.2 (6.3-8.2) g/dL Albumin 4.2 (3.5-5.0) g/dL 02/18/22 Range/Units 14:04 WBC (3.8-10.6) k/uL RBC (3.80-5.40) m/uL Hgb (11.4-16.0) gm/dL Hct (34.0-46.0) % MCV (80.0-100.0) fL MCH (25.0-35.0) pg MCHC (31.0-37.0) g/dL RDW (11.5-15.5) % Plt Count (150-450) k/uL MPV Neutrophils % % Lymphocytes % % Monocytes % % Eosinophils % % Basophils % % Neutrophils # (1.3-7.7) k/uL Lymphocytes # (1.0-4.8) k/uL Monocytes # (0-1.0) k/uL Eosinophils # (0-0.7) k/uL Basophils # (0-0.2) k/uL PT 11.6 (9.0-12.0) sec INR 1.1 (<1.2) APTT 29.8 (22.0-30.0) sec Sodium (137-145) mmol/L Potassium (3.5-5.1) mmol/L Chloride (98-107) mmol/L Carbon Dioxide (22-30) mmol/L Anion Gap mmol/L BUN (7-17) mg/dL Creatinine (0.52-1.04) mg/dL Est GFR (CKD-EPI)AfAm (>60 ml/min/1.73 sqM) Est GFR (CKD-EPI)NonAf (>60 ml/min/1.73 sqM) Glucose (74-99) mg/dL Plasma Lactic Acid Davon (0.7-2.0) mmol/L Calcium (8.4-10.2) mg/dL Phosphorus (2.5-4.5) mg/dL Magnesium (1.6-2.3) mg/dL Total Bilirubin (0.2-1.3) mg/dL AST (14-36) U/L ALT (4-34) U/L Alkaline Phosphatase (38-126) U/L Total Protein (6.3-8.2) g/dL Albumin (3.5-5.0) g/dL Disposition Clinical Impression: IV drug abuse, Abscess of right hand, Cellulitis of right hand Disposition: ADMITTED IP TO THIS [facility] Condition: Good Is patient prescribed a controlled substance at d/c from ED?: No Time of Disposition: 05:15
[2022-02-18] MEDS ORDERED: SODIUM CHLORIDE 0.9% 500 ML 500 ML IV STA (05:10)
[2022-02-18] MEDS ORDERED: VANCOMYCIN IV PER PHARMACY 1 EACH MISC MISCELLANE PRN (05:10)
[2022-02-18] MEDS ORDERED: AMPICILLIN-SULBACTAM 3 GM in SODIUM CHLORIDE 0.9% 100 ML IVPB STA (05:10)
[2022-02-18] MEDS ORDERED: SODIUM CHLORIDE 0.9% 1,000 ML IV STA (05:10)
[2022-02-18] MEDS ORDERED: KETOROLAC 15 MG/ML 1 ML VIAL IVP STA (05:10)
[2022-02-18] MEDS ORDERED: ONDANSETRON 4 MG/2 ML VIAL IVP PRN (05:13)
[2022-02-18] MEDS ORDERED: IBUPROFEN 400 MG TAB PO PRN (05:13)
[2022-02-18] MEDS ORDERED: ACETAMINOPHEN TAB 325 MG TAB PO PRN (05:13)
[2022-02-18] MEDS ORDERED: NALOXONE 0.4 MG/ML 1 ML VIAL IV PRN (05:13)
[2022-02-18 05:56] LABS: Basophils % (A) 0 %; Eosinophils # (A) 0.1 k/uL (0-0.7); Eosinophils % (A) 1 %; HCT 34.9 % (34.0-46.0); HGB 12.4 gm/dL (11.4-16.0); Lymphocytes # (A) 1.9 k/uL (1.0-4.8); Lymphocytes % (A) 19 %; MCH 30.5 pg (25.0-35.0); MCHC 35.5 g/dL (31.0-37.0); MCV 86.1 fL (80.0-100.0); Mean Platelet Volume 8.6; Monocytes # (A) 0.7 k/uL (0-1.0); Monocytes % (A) 7 %; Neutrophils # (A) 7.4 k/uL (1.3-7.7); Neutrophils % (A) 73 %; Platelet Count 145 k/uL (150-450); RBC 4.05 m/uL (3.80-5.40); RDW 11.8 % (11.5-15.5); WBC 10.3 k/uL (3.8-10.6)
[2022-02-18 06:07] LABS: ALT 15 U/L (4-34); AST 31 U/L (14-36); African American GFR (CKD) >90 (>60 ml/min/1.73 sqM); Albumin 4.2 g/dL (3.5-5.0); Alkaline Phosphatase 57 U/L (38-126); Anion Gap 9 mmol/L; Blood Urea Nitrogen 7 mg/dL (7-17); Calcium 8.7 mg/dL (8.4-10.2); Carbon Dioxide 24 mmol/L (22-30); Chloride 97 mmol/L (98-107); Glucose 87 mg/dL (74-99); Magnesium 1.7 mg/dL (1.6-2.3); Non-African American GFR(CKD) >90 (>60 ml/min/1.73 sqM); Phosphorus 4.5 mg/dL (2.5-4.5); Sodium 130 mmol/L (137-145); Total Bilirubin 1.2 mg/dL (0.2-1.3); Total Protein 7.2 g/dL (6.3-8.2)
[2022-02-18 06:10] LABS: Potassium 4.3 mmol/L (3.5-5.1)
[2022-02-18] MEDS: SODIUM CHLORIDE 0.9% 1,000 ML IV SCH ×3 (06:22→23:21)
[2022-02-18] MEDS ORDERED: VANCOMYCIN 1,000 MG in SODIUM CHLORIDE 0.9% 250 ML IVPB ONE (07:00)
[2022-02-18] MEDS ORDERED: QUEtiapine 50 MG TAB PO PRN (08:35)
[2022-02-18] MEDS ORDERED: clonazePAM 0.5 MG TAB PO PRN (08:35)
[2022-02-18] MEDS ORDERED: ALBUTEROL NEBULIZED 2.5 MG/3 ML INHALATION PRN (08:35)
[2022-02-18] MEDS ORDERED: QUEtiapine 25 MG TAB PO PRN (08:35)
[2022-02-18] MEDS: NON FORMULARY DRUG (Lisdexamfetamine Dimesylate [Vyvanse] 50 MG Capsule) PO SCH (09:21)
[2022-02-18] MEDS: HYDROcodone/APAP 7.5-325MG 1 EACH TAB PO PRN ×2 (09:25→20:46)
--- NOTE | 2022-02-18 09:25 | P.CNOR ---
History of Present Illness - [facility] Consult date: 02/18/22 Requesting physician: Tyson Stoner Consult reason: other (abscess) History of present illness: Patient is a 26-year-old female with a history of IVDA who presented the emergency department earlier this morning with right hand pain and swelling. Patient says she noticed this about 5 days ago. Patient says she did shoot up and miss her vein in her hand. Patient has noted increased redness and swelling in the right hand over the past few days. Patient has also noted she is had chills and fevers over the past couple days Patient decided to come into the emergency department this morning because of increased pain, swelling, redness in right hand. Patient says she is having difficult time moving her fingers and right hand. Patient says she has also having pain with movement of her right wrist. Patient did have incision and drainage of an abscess on her left hand in April 2021 due to abscess. Patient denies chest pain, shortness breath, nausea, vomiting, change in vision, loss of bowel/bladder control. Past Medical History Past Medical History: Asthma, Musculoskeletal Disorder Additional Past Medical History / Comment(s): chiari malformation, diverticulitis, DDD, herniated lumbar disc., receives toradol injections, states hx of palpitations, cysts on kidney, History of Any Multi-Drug Resistant Organisms: None Reported Past Surgical History: No Surgical Hx Reported Additional Past Surgical History / Comment(s): wisdom teeth removed, cyst removed from kidney. I&D lt hand abcess Apr 2021 Past Anesthesia/Blood Transfusion Reactions: Family History of Problems w/ Anesthesia Additional Past Anesthesia/Blood Transfusion Reaction / Comm: no anesthesia hx. emotional when waking up after wisdom teeth. Patients Mother gets PONV and combative. Past Psychological History: ADD/ADHD, Anxiety, Depression, Panic Disorder, PTSD Smoking Status: Current every day smoker Past Alcohol Use History: None Reported Additional Past Alcohol Use History / Comment(s): 1ppd since age of 7 Past Drug Use History: Marijuana Additional Drug Use History / Comment(s): daily use - Past Family History Mother Family Medical History: No Reported History Medications and Allergies Home Medications Medication Instructions Recorded Confirmed Type Albuterol Sulfate [Proair Hfa] 2 puff INHALATION RT-Q6H PRN 03/21/19 04/16/21 History QUEtiapine [SEROquel] 50 mg PO HS PRN 08/01/20 04/16/21 History Sertraline HCl [Zoloft] 200 mg PO HS 08/01/20 04/16/21 History QUEtiapine [SEROquel] 25 mg PO HS PRN 08/13/20 04/16/21 History Amoxic-Pot Clav 500-125 mg 1 tab PO Q8H 04/16/21 04/16/21 History [Augmentin 500-125 mg] HYDROcodone/APAP 7.5-325MG [Kellogg 1 tab PO TID PRN 04/16/21 04/16/21 History 7.5-325] Lisdexamfetamine Dimesylate 50 mg PO DAILY 04/16/21 04/16/21 History [Vyvanse] clonazePAM [KlonoPIN] 0.5 mg PO BID PRN 04/16/21 04/16/21 History Acetaminophen Tab [Tylenol] 650 mg PO Q6H #20 tab 04/21/21 Rx Naproxen [Naprosyn] 250 mg PO BID #20 tab 04/21/21 Rx Nicotine 21Mg/24Hr Patch [Habitrol] 1 patch TRANSDERM DAILY #14 patch 04/21/21 Rx Allergies Allergy/AdvReac Type Severity Reaction Status Date / Time morphine AdvReac Nausea & Verified 04/18/21 11:33 Vomiting tramadol AdvReac Nausea & Verified 04/18/21 11:33 Vomiting Physical Examination Right-hand presents with erythema, moderate swelling in the dorsum of the right hand. Central area this black in color and was drained at bedside in the ER earlier this morning. Area is warm to touch. Positive for fluctuance and purulence. There is significant tenderness to palpation over the dorsum of the right hand as well as in the first and second webspace. Patient does have limited range of motion in all digits in the right hand due to pain. Patient does have limited range of motion in wrist flexion/extension in RUE. Patient does have full range of motion in rest of right upper extremity and left upper extremity. Environmental Management Specialist strength 3/5 in the right upper extremity and 3/5 in resisted right wrist flexion/extension. 5/5 in all other major motor groups. Neurovascular status is intact. Radial pulses 2+, bilaterally. Cap refill under 3 seconds in digits of upper extremities bilaterally. Results - Labs Labs: Abnormal Lab Results - Last 24 Hours (Table) 02/18/22 02/18/22 Range/Units 05:46 05:46 Plt Count 145 L (150-450) k/uL Sodium 130 L (137-145) mmol/L Chloride 97 L (98-107) mmol/L Creatinine 0.48 L (0.52-1.04) mg/dL H & H 02/18/22 Range/Units 05:46 Hgb 12.4 (11.4-16.0) gm/dL Hct 34.9 (34.0-46.0) % Result Diagrams: 02/18/22 05:46 02/18/22 05:46 Assessment and Plan Assessment: 1. Right hand dorsal abscess 2. History of IVDA Plan: 1. Right hand dorsal abscess - patient seen at bedside this morning. Kerlix bandage taken down 4 x 4's taken down. Right hand presents with significant arie thema, warmth and swelling. Patient has been started on vancomycin. At this time we do recommend surgical intervention with incision and drainage of abscess. Patient to be nothing by mouth beginning midnight tonight. Infectious disease has been consulted. Surgery scheduled for tomorrow, , 02/19/2022 - right hand I&D. 2. History of IVDA 3. Appreciate medical management 4. Pain management - Kellogg; Tylenol; Motrin 5. DVT and GI recs 6. PT/OT - nonweightbearing right upper extremity 7. Appreciate consult Time with Patient: Less than 30
[2022-02-18] MEDS ORDERED: HYDROmorphone 1 MG/ML 1 ML SYRINGE IVP STA (11:40)
[2022-02-18] MEDS: AMPICILLIN-SULBACTAM 3 GM in SODIUM CHLORIDE 0.9% 100 ML IVPB SCH ×2 (14:03→20:41)
--- NOTE | 2022-02-18 14:39 | P.HPIM ---
History of Present Illness H&P Date: 02/18/22 Patient is a 26-year-old female with PMH of IV drug abuse presents ED for right hand pain and swelling has been ongoing for the past 5 days. Though she denies history of IV drug use, this is been documented by multiple providers. Apparently she did attempt to inject and missed her vein in her right hand. Patient also reports subjective fever and chills over the last 2 days. She currently reports right hand pain, 10 out of 10 in severity. When symptoms persisted this prompted her to come to the ED. She denies any headache, lower extremity edema, nausea or vomiting, cough, chest pain, shortness breath, palpitations, changes in urination or bowel habits. No changes in appetite or weight. She denies any dizziness, numbness/weakness/tingling of the extremities. In the ED, she has not to be tachycardic with heart rate in the 120s. T-max of 99.5. Vital signs were otherwise stable. CBC showed platelet count 145. CMP showed sodium 130, chloride of 97, BUN of 0.40. Lactic acid was negative. Magnesium is 1.7. Patient is admitted for hand abscess with orthopedic surgery consultation. Review of systems is performed and is negative except above. General: non toxic, no distress, appears at stated age Derm: warm, dry Head: atraumatic, normocephalic, symmetric Eyes: EOMI, no lid lag, anicteric sclera Mouth: no lip lesion, mucus membranes moist Cardiovascular: Tachycardic, no murmur, 2+ radial pulse bilaterally Lungs: CTA bilateral, no rhonchi, no rales , no accessory muscle use Abdominal: soft, nontender to palpation, no guarding, no appreciable organomegaly Ext: no gross muscle atrophy, no edema, no contractures, right hand swollen with erythema + fluctuance with restrictive range of motion due to pain Neuro: no focal neuro deficits Psych: Alert, oriented, appropriate affect #Right hand abscess #History of IV drug use #Nicotine abuse #Hyponatremia Chronic conditions: Asthma Patient does not meet sepsis criteria. Lactic acid negative. Orthopedic surgery has been consulted, plans for I&D tomorrow. Continue Vancomycin and Unasyn. Follow blood cultures. Pain control with [place] and Dilaudid as needed. Tylenol as needed for fever. Infectious disease is consulted. Patient has been encouraged to quit illicit substances. Nicotine patch has been offered. Likely related to dehydration. Continue NS at 130 cc/hr. Repeat BMP tomorrow. Albuterol neb as needed for shortness of breath and wheezing. DVT prophylaxis: Heparin Discussed with: Patient Anticipated discharge: 2-[address]: Home A total of 35 minutes was spent on the care of this complex patient more than 50% of the time was spent in counseling and care coordination. Patient would like to be FULL CODE. Past Medical History Past Medical History: Asthma, Musculoskeletal Disorder Additional Past Medical History / Comment(s): chiari malformation, diverticulitis, DDD, herniated lumbar disc., receives toradol injections, states hx of palpitations, cysts on kidney, History of Any Multi-Drug Resistant Organisms: None Reported Past Surgical History: No Surgical Hx Reported Additional Past Surgical History / Comment(s): wisdom teeth removed, cyst removed from kidney. I&D lt hand abcess Apr 2021 Past Anesthesia/Blood Transfusion Reactions: Family History of Problems w/ Anesthesia Additional Past Anesthesia/Blood Transfusion Reaction / Comment(s): no anesthesia hx. emotional when waking up after wisdom teeth. Patients Mother gets PONV and combative. Past Psychological History: ADD/ADHD, Anxiety, Depression, Panic Disorder, PTSD Smoking Status: Current every day smoker Past Alcohol Use History: None Reported Additional Past Alcohol Use History / Comment(s): 1ppd since age of 7 Past Drug Use History: Marijuana Additional Drug Use History / Comment(s): daily use - Past Family History Mother Family Medical History: No Reported History Medications and Allergies Home Medications Medication Instructions Recorded Confirmed Type Albuterol Sulfate [Proair Hfa] 2 puff INHALATION RT-Q6H PRN 03/21/19 02/18/22 History QUEtiapine [SEROquel] 50 mg PO HS 08/01/20 02/18/22 History Sertraline HCl [Zoloft] 200 mg PO HS 08/01/20 02/18/22 History QUEtiapine [SEROquel] 25 mg PO HS 08/13/20 02/18/22 History HYDROcodone/APAP 7.5-325MG [[place] 1 tab PO TID PRN 04/16/21 02/18/22 History 7.5-325] Ergocalciferol (Vitamin D2) 1,250 mcg PO Q7D 02/18/22 02/18/22 History [Drisdol (50,000 Iu)] Lisdexamfetamine Dimesylate 70 mg PO DAILY 02/18/22 02/18/22 History [Vyvanse] OXcarbazepine [Trileptal] 150 mg PO HS 02/18/22 02/18/22 History hydrOXYzine HCL [Atarax] 10 mg PO BID PRN 02/18/22 02/18/22 History rOPINIRole HCL [Requip] 2 mg PO HS 02/18/22 02/18/22 History Allergies Allergy/AdvReac Type Severity Reaction Status Date / Time morphine AdvReac Nausea & Verified 02/18/22 11:46 Vomiting tramadol AdvReac Nausea & Verified 02/18/22 11:46 Vomiting Physical Exam Vitals: Vital Signs Temp Pulse Pulse Resp BP BP Pulse Ox 02/18/22 06:25 98.9 F 101 H 19 108/73 98 02/18/22 06:15 98.5 F 94 18 102/62 98 02/18/22 04:29 99.5 F 124 H 18 130/78 100 Intake and Output 02/17/22 02/18/22 02/18/22 22:59 06:59 14:59 Intake Total 480 Balance 480 Intake: Oral 480 Other: # Voids 1 Weight 58.967 kg Results CBC & Chem 7: 02/18/22 05:46 02/18/22 05:46 Labs: Abnormal Lab Results - Last 24 Hours (Table) 02/18/22 02/18/22 Range/Units 05:46 05:46 Plt Count 145 L (150-450) k/uL Sodium 130 L (137-145) mmol/L Chloride 97 L (98-107) mmol/L Creatinine 0.48 L (0.52-1.04) mg/dL
[2022-02-18 14:57] LABS: INR 1.1 (<1.2); Partial Thromboplastin Time 29.8 sec (22.0-30.0); Prothrombin Time 11.6 sec (9.0-12.0)
[2022-02-18] MEDS: VANCOMYCIN 1,000 MG in SODIUM CHLORIDE 0.9% 250 ML IVPB SCH ×2 (15:54→22:43)
[2022-02-18] MEDS: HYDROmorphone 1 MG/ML 1 ML SYRINGE IVP PRN ×2 (18:34→22:42)
[2022-02-18] MEDS: SERTRALINE 100 MG TAB PO SCH (20:41)
[2022-02-18] MEDS: NICOTINE 14MG/24HR PATCH TRANSDERM SCH (20:41)
[2022-02-18] MEDS: HEPARIN SODIUM,PORCINE/PF 5,000 UNIT/0.5 ML SYRINGE SQ SCH (20:41)
[2022-02-19] MEDS: HYDROmorphone 1 MG/ML 1 ML SYRINGE IVP PRN ×4 (02:07→14:08)
[2022-02-19] MEDS: HYDROcodone/APAP 7.5-325MG 1 EACH TAB PO PRN ×2 (04:15→13:30)
[2022-02-19] MEDS: SODIUM CHLORIDE 0.9% 1,000 ML IV SCH ×2 (04:36→10:13)
[2022-02-19] MEDS: AMPICILLIN-SULBACTAM 3 GM in SODIUM CHLORIDE 0.9% 100 ML IVPB SCH ×3 (06:02→21:45)
[2022-02-19] MEDS: VANCOMYCIN 1,000 MG in SODIUM CHLORIDE 0.9% 250 ML IVPB SCH ×2 (06:02→15:47)
--- NOTE | 2022-02-19 08:41 | P.CONS ---
History of Present Illness - Reason for Consult Consult date: 02/18/22 Right hand abscess Requesting physician: Michael Gill - Chief Complaint Right hand swelling and redness x few days - History of Present Illness Patient is a 26-year-old female with a past medical history significant for asthma diverticulitis IV drug use presenting to the ER for evaluation of right hand pain and swelling that apparently has been going on for about 5 days before presentation to the hospital patient apparently did shoot up and missed her vein in the hand before her symptoms started patient noticed to having increasing pain swelling and redness on the dorsal aspect of the right hand for the patient present to the ER patient complaining of pain to be sharp with intensity almost 10 out of 10 and no significant radiation patient mention current pain medication not helping and wants more pain medication patient did have a associated swelling redness and did have attempted drainage in the ER which was not successful patient on presentation to the hospital did have low- grade fever of 99.5 F patient did have a normal white count kidney function has been normal liver enzymes are normal blood culture prevention currently pending patient was started on Unasyn and vancomycin infectious disease was consulted for further management of antibiotic therapy Review of Systems Positive point has been mentioned in the HPI rest of the systems are negative Past Medical History Past Medical History: Asthma, Musculoskeletal Disorder Additional Past Medical History / Comment(s): chiari malformation, diverticulitis, DDD, herniated lumbar disc., receives toradol injections, states hx of palpitations, cysts on kidney, History of Any Multi-Drug Resistant Organisms: None Reported Past Surgical History: No Surgical Hx Reported Additional Past Surgical History / Comment(s): wisdom teeth removed, cyst removed from kidney. I&D lt hand abcess Apr 2021 Past Anesthesia/Blood Transfusion Reactions: Family History of Problems w/ Anesthesia Additional Past Anesthesia/Blood Transfusion Reaction / Comm: no anesthesia hx. emotional when waking up after wisdom teeth. Patients Mother gets PONV and combative. Past Psychological History: ADD/ADHD, Anxiety, Depression, Panic Disorder, PTSD Smoking Status: Current every day smoker Past Alcohol Use History: None Reported Additional Past Alcohol Use History / Comment(s): 1ppd since age of 7 Past Drug Use History: Marijuana Additional Drug Use History / Comment(s): daily use - Past Family History Mother Family Medical History: No Reported History Medications and Allergies Home Medications Medication Instructions Recorded Confirmed Type Albuterol Sulfate [Proair Hfa] 2 puff INHALATION RT-Q6H PRN 03/21/19 02/18/22 History QUEtiapine [SEROquel] 50 mg PO HS 08/01/20 02/18/22 History Sertraline HCl [Zoloft] 200 mg PO HS 08/01/20 02/18/22 History QUEtiapine [SEROquel] 25 mg PO HS 08/13/20 02/18/22 History Ergocalciferol (Vitamin D2) 1,250 mcg PO Q7D 02/18/22 02/18/22 History [Drisdol (50,000 Iu)] Lisdexamfetamine Dimesylate 70 mg PO DAILY 02/18/22 02/18/22 History [Vyvanse] OXcarbazepine [Trileptal] 150 mg PO HS 02/18/22 02/18/22 History hydrOXYzine HCL [Atarax] 10 mg PO BID PRN 02/18/22 02/18/22 History rOPINIRole HCL [Requip] 2 mg PO HS 02/18/22 02/18/22 History Amoxic-Pot Clav 875-125Mg 1 tab PO BID 14 Days #28 tab 02/23/22 Rx [Augmentin 875-125] Ibuprofen [Motrin] 800 mg PO Q8H #30 tab 02/23/22 Rx Allergies Allergy/AdvReac Type Severity Reaction Status Date / Time morphine AdvReac Nausea & Verified 02/18/22 11:46 Vomiting tramadol AdvReac Nausea & Verified 02/18/22 11:46 Vomiting Physical Exam Vitals: Vital Signs Temp Pulse Pulse Resp BP BP Pulse Ox 02/18/22 06:25 98.9 F 101 H 19 108/73 98 02/18/22 06:15 98.5 F 94 18 102/62 98 02/18/22 04:29 99.5 F 124 H 18 130/78 100 Intake and Output 02/17/22 02/18/22 02/18/22 22:59 06:59 14:59 Other: # Voids 1 Weight 58.967 kg GENERAL DESCRIPTION: Middle-aged female lying in bed, no distress. No tachypnea or accessory muscle of respiration use. HEENT: Shows Pallor , no scleral icterus. Oral mucous membrane is dry. No pharyngeal erythema or thrush NECK: Trachea central, no thyromegaly. LUNGS: Unlabored breathing. Clear to auscultation anteriorly. No wheeze or crackle. HEART: S1, S2, regular rate and rhythm. No loud murmur ABDOMEN: Soft, no tenderness , guarding or rigidity, no organomegaly EXTREMITIES: Right hand dorsum did have swelling redness and induration tender to touch. SKIN: No rash, no masses palpable. NEUROLOGICAL: The patient is awake, alert, oriented x3, mood and affect normal. Results CBC & Chem 7: 02/21/22 05:11 02/23/22 05:21 Labs: Abnormal Lab Results - Last 24 Hours (Table) 02/18/22 02/18/22 Range/Units 05:46 05:46 Plt Count 145 L (150-450) k/uL Sodium 130 L (137-145) mmol/L Chloride 97 L (98-107) mmol/L Creatinine 0.48 L (0.52-1.04) mg/dL Assessment and Plan (1) Abscess of right hand Status: Acute Code(s): L02.511 - CUTANEOUS ABSCESS OF RIGHT HAND SNOMED Code(s): 06238341617385892 (2) IV drug abuse Status: Acute Code(s): F19.10 - OTHER PSYCHOACTIVE SUBSTANCE ABUSE, UNCOMPLICATED SNOMED Code(s): 175379676 Plan: 1patient with right hand dorsal abscess and cellulitis in this patient who do have a history of IV drug use and apparently did inject into the area likely related to IV drug use and likely from gram-positive skin kobi less likely gram-negative infection. 2await surgical drainage and deep cultures. 3vancomycin pharmacy to dose target trough of 15 while watching kidney function and vancomycin trough closely. We will follow on clinical condition and cultures to further adjust medication if needed Thank you for this consultation will follow this patient along with you Time with Patient: Greater than 30
[2022-02-19 08:54] LABS: Basophils # (A) 0.01 X 10*3/uL (0.00-0.10); Basophils % (A) 0.2 %; Eosinophils # (A) 0.17 X 10*3/uL (0.04-0.35); Eosinophils % (A) 4.1 %; HCT 29.2 % (37.2-46.3); HGB 9.7 g/dL (12.0-15.0); Immature Grans, Automated 0.5 %; Lymphocytes % (A) 46.1 %; MCH 29.8 pg (27.0-32.0); MCHC 33.2 g/dL (32.0-37.0); MCV 89.8 fL (80.0-97.0); Mean Platelet Volume 10.9 fL (9.5-12.2); Monocytes # (A) 0.51 X 10*3/uL (0.20-1.00); Monocytes % (A) 12.4 %; NRBC Per 100 WBC 0 /100 WBCS (0.0-0.0); Neutrophils # (A) 1.51 X 10*3/uL (1.80-7.70); Neutrophils % (A) 36.7 %; Platelet Count 133 X 10*3/uL (140-440); RBC 3.25 X 10*6/uL (4.10-5.20); RDW 12.1 % (11.5-14.5); WBC 4.12 X 10*3/uL (4.50-10.00)
[2022-02-19 09:08] LABS: African American GFR (CKD) >90 (>60 ml/min/1.73 sqM); Anion Gap 2 mmol/L; Blood Urea Nitrogen 4 mg/dL (7-17); Calcium 8.3 mg/dL (8.4-10.2); Carbon Dioxide 26 mmol/L (22-30); Chloride 112 mmol/L (98-107); Glucose 89 mg/dL (74-99); Non-African American GFR(CKD) >90 (>60 ml/min/1.73 sqM); Potassium 3.7 mmol/L (3.5-5.1); Sodium 140 mmol/L (137-145)
--- NOTE | 2022-02-19 11:53 | P.PN ---
Subjective Progress Note Date: 02/19/22 Patient is a 26-year-old female with PMH of IV drug abuse presents ED for right hand pain and swelling has been ongoing for the past 5 days. Though she denies history of IV drug use, this is been documented by multiple providers. Apparently she did attempt to inject and missed her vein in her right hand. Patient also reports subjective fever and chills over the last 2 days. She currently reports right hand pain, 10 out of 10 in severity. When symptoms persisted this prompted her to come to the ED. She denies any headache, lower extremity edema, nausea or vomiting, cough, chest pain, shortness breath, palpitations, changes in urination or bowel habits. No changes in appetite or weight. She denies any dizziness, numbness/weakness/tingling of the extremities. In the ED, she has not to be tachycardic with heart rate in the 120s. T-max of 99.5. Vital signs were otherwise stable. CBC showed platelet count 145. CMP showed sodium 130, chloride of 97, BUN of 0.40. Lactic acid was negative. Magnesium is 1.7. Patient is admitted for hand abscess with orthopedic surgery consultation. Patient was seen and examined. No acute events overnight. Patient continues to report uncontrolled pain in her right hand. Plans for I&D today. General: non toxic, no distress, appears at stated age Derm: warm, dry Head: atraumatic, normocephalic, symmetric Eyes: EOMI, no lid lag, anicteric sclera Mouth: no lip lesion, mucus membranes moist Cardiovascular: Normal S1 S2, no murmur, 2+ radial pulse bilaterally Lungs: CTA bilateral, no rhonchi, no rales , no accessory muscle use Abdominal: soft, nontender to palpation, no guarding, no appreciable organomegaly Ext: no gross muscle atrophy, no edema, no contractures, right hand swollen with erythema + fluctuance with restrictive range of motion due to pain Neuro: no focal neuro deficits Psych: Alert, oriented, appropriate affect #Right hand abscess #Pancytopenia #History of IV drug use #Nicotine abuse Resolved: Hyponatremia Chronic conditions: Asthma Patient does not meet sepsis criteria. Lactic acid negative. Orthopedic surgery has been consulted, plans for I&D today. Continue Vancomycin and Unasyn discontinued by ID. Follow blood cultures. Pain control with [place] and Dilaudid as needed. Tylenol as needed for fever. Infectious disease is on board. WBC count of 4.12, Hg 9.7, Hct 29.2, Plt 133. Possibly dilutional. Given history of IVDU, would recommend Hepatitis panel and testing for HIV. Will discuss with patient. Patient has been encouraged to quit illicit substances. Nicotine patch has been offered. Albuterol neb as needed for shortness of breath and wheezing. DVT prophylaxis: Heparin Discussed with: Patient Anticipated discharge: 2-3 days Objective - Vital Signs Vital signs: Vital Signs Temp 98.1 F 02/19/22 08:10 Pulse 83 02/19/22 08:10 Resp 12 02/19/22 08:32 BP 100/65 02/19/22 08:10 Pulse Ox 99 02/19/22 08:32 FiO2 Intake & Output 02/18/22 02/19/22 02/19/22 18:59 06:59 18:59 Intake Total 960 Balance 960 Intake: Oral 960 Other: # Voids 1 2 - Labs CBC & Chem 7: 02/19/22 05:54 02/19/22 05:54 Labs: Abnormal Lab Results - Last 24 Hours (Table) 02/19/22 02/19/22 Range/Units 05:54 05:54 WBC 4.12 L (4.50-10.00) X 10*3/uL RBC 3.25 L (4.10-5.20) X 10*6/uL Hgb 9.7 L (12.0-15.0) g/dL Hct 29.2 L (37.2-46.3) % Plt Count 133 L (140-440) X 10*3/uL Neutrophils # 1.51 L (1.80-7.70) X 10*3/uL Chloride 112 H (98-107) mmol/L BUN 4 L (7-17) mg/dL Creatinine 0.49 L (0.52-1.04) mg/dL Calcium 8.3 L (8.4-10.2) mg/dL Microbiology - Last 24 Hours (Table) 02/18/22 05:30 Blood Culture - Preliminary Blood No Growth after 24 hours 02/18/22 05:15 Blood Culture - Preliminary Blood No Growth after 24 hours
[2022-02-19] MEDS: NON FORMULARY DRUG (Lisdexamfetamine Dimesylate [Vyvanse] 50 MG Capsule) PO SCH (13:14)
[2022-02-19] MEDS: HEPARIN SODIUM,PORCINE/PF 5,000 UNIT/0.5 ML SYRINGE SQ SCH ×2 (13:15→21:46)
[2022-02-19] MEDS: NICOTINE 14MG/24HR PATCH TRANSDERM SCH (13:26)
[2022-02-19] MEDS ORDERED: VANCOMYCIN TROUGH DUE 1 EACH MISC MISCELLANE ONE (14:00)
[2022-02-19] MEDS ORDERED: PROPOFOL 10 MG/ML 20 ML VIAL IV ONE (18:25)
[2022-02-19] MEDS ORDERED: LIDOCAINE 2% INJ 20 MG/ML (2 ML VIAL) ONE (18:25)
[2022-02-19] MEDS ORDERED: ONDANSETRON 4 MG/2 ML VIAL ONE (18:25)
[2022-02-19] MEDS ORDERED: MIDAZOLAM 2 MG/2 ML VIAL ONE (18:25)
[2022-02-19] MEDS ORDERED: fentaNYL (PF) 50 MCG/ML 2 ML AMP ONE (18:25)
[2022-02-19] MEDS ORDERED: IV FLUID CONTINUATION 1,000 ML IV ONE (18:30)
[2022-02-19] MEDS ORDERED: ceFAZolin 3,000 MG in SODIUM CHLORIDE 0.9% IRRIGATIO 3,000 ML IRRIGATION ONE (19:01)
[2022-02-19] MEDS ORDERED: LACTATED RINGERS 1,000 ML IV ONE (19:01)
[2022-02-19] MEDS ORDERED: KETOROLAC 15 MG/ML 1 ML VIAL IVP ONE (19:15)
--- NOTE | 2022-02-19 19:16 | P.OP ---
Date of Procedure: 02/19/22 Preoperative Diagnosis: Right hand dorsal abscess Postoperative Diagnosis: Right hand dorsal subcutaneous abscess measuring approximately 2 cm x 3 cm Procedure(s) Performed: Incision with drainage right hand dorsal abscess Anesthesia: MUSA Surgeon: Bladimir Guevara [employer] #1: Yannick Dao Estimated Blood Loss (ml): 10 Pathology: other (Cultures) Condition: stable Disposition: PACU Indications for Procedure: 26-year-old patient seen with a right hand dorsal abscess. I discussed incision with drainage. She was agreeable. Consent was obtained. Operative Findings: see description of procedure Description of Procedure: Patient was taken to the operative suite. She underwent a general anesthetic by the department of anesthesia. A well-padded tourniquet placed proximal right upper extremity. The right upper extremity was prepped and draped in the normal sterile orthopedic fashion. Extremity elevated and tourniquet insufflated to 250. I made a washer an incision over the area of the dorsal abscess measuring approximately 3 cm. We made a counter a fair amount of purulent material. Cultures were obtained. The wound was irrigated copiously. I explored the margins. Some of skin edges look somewhat necrotic and used a #15 blade to surgically excise the necrotic skin the skin area. The wound was explored and I noted the tendons to be intact. At this point we irrigated the wound out with 3000 mL of antibiotic irrigant. I explored the wound one more time and noted no additional abnormal appearing tissue. The skin margins were loosely approximated with nylon suture. Sterile dressings were applied. The tourniquet was released with immediate capillary refill noted. A sterile [place] bandage was applied. The patient was awakened, transferred to recovery in stable condition. Jordan GONZALEZ assisted with this procedure.
[2022-02-19] MEDS ORDERED: HYDROmorphone 0.5 MG/0.5 ML SYRINGE IVP ONE ×3 (19:30→20:02)
[2022-02-19] MEDS ORDERED: ONDANSETRON 4 MG/2 ML VIAL IVP ONE (19:35)
[2022-02-19] MEDS ORDERED: MIDAZOLAM 2 MG/2 ML VIAL IVP ONE ×3 (20:32→20:48)
[2022-02-19] MEDS: SERTRALINE 100 MG TAB PO SCH (21:46)
[2022-02-19] MEDS: VANCOMYCIN 1,250 MG in SODIUM CHLORIDE 0.9% 250 ML IVPB SCH (23:09)
[2022-02-20] MEDS: HYDROmorphone 1 MG/ML 1 ML SYRINGE IVP PRN ×7 (00:53→23:05)
[2022-02-20] MEDS: AMPICILLIN-SULBACTAM 3 GM in SODIUM CHLORIDE 0.9% 100 ML IVPB SCH ×3 (05:12→21:21)
[2022-02-20] MEDS: HYDROcodone/APAP 7.5-325MG 1 EACH TAB PO PRN (06:33)
[2022-02-20] MEDS: VANCOMYCIN 1,250 MG in SODIUM CHLORIDE 0.9% 250 ML IVPB SCH ×3 (06:34→22:52)
[2022-02-20] MEDS: SODIUM CHLORIDE 0.9% 1,000 ML IV SCH (09:16)
[2022-02-20] MEDS: NICOTINE 14MG/24HR PATCH TRANSDERM SCH (09:17)
--- NOTE | 2022-02-20 09:40 | P.PN ---
Subjective Progress Note Date: 02/19/22 Principal diagnosis: Right hand abscess and cellulitis Patient is a 26-year-old occasional female with a past medical history significant for IV drug use presenting to the hospital with right hand dorsum in swelling redness has been diagnosed with an abscess associated with IV drug use. On today's evaluation that is 02/19/2022, the patient denies having any fever or any chills, the patient pain to the right hand dorsum. Is currently controlled patient denies having any chest pain or shortness of breath or cough no nausea no vomiting no abdominal pain or diarrhea Objective - Vital Signs Vital signs: Vital Signs Temp 98.1 F 02/19/22 08:10 Pulse 83 02/19/22 08:10 Resp 12 02/19/22 08:32 BP 100/65 02/19/22 08:10 Pulse Ox 99 02/19/22 08:32 FiO2 Intake & Output 02/18/22 02/19/22 02/19/22 18:59 06:59 18:59 Intake Total 960 Balance 960 Intake: Oral 960 Other: # Voids 1 2 - Exam GENERAL DESCRIPTION: An female lying in bed in no distress RESPIRATORY SYSTEM: Unlabored breathing , decreased breath sounds at bases HEART: S1 S2 regular rate and rhythm , ABDOMEN: Soft , no tenderness EXTREMITIES: Right hand dorsum is currently dressed no drainage of the dressing - Labs CBC & Chem 7: 02/19/22 05:54 02/19/22 05:54 Labs: Abnormal Lab Results - Last 24 Hours (Table) 02/19/22 02/19/22 Range/Units 05:54 05:54 WBC 4.12 L (4.50-10.00) X 10*3/uL RBC 3.25 L (4.10-5.20) X 10*6/uL Hgb 9.7 L (12.0-15.0) g/dL Hct 29.2 L (37.2-46.3) % Plt Count 133 L (140-440) X 10*3/uL Neutrophils # 1.51 L (1.80-7.70) X 10*3/uL Chloride 112 H (98-107) mmol/L BUN 4 L (7-17) mg/dL Creatinine 0.49 L (0.52-1.04) mg/dL Calcium 8.3 L (8.4-10.2) mg/dL Microbiology - Last 24 Hours (Table) 02/18/22 05:30 Blood Culture - Preliminary Blood No Growth after 24 hours 02/18/22 05:15 Blood Culture - Preliminary Blood No Growth after 24 hours Assessment and Plan (1) Abscess of right hand Current Visit: Yes Status: Acute Code(s): L02.511 - CUTANEOUS ABSCESS OF RIGHT HAND SNOMED Code(s): 61581048841473861 (2) IV drug abuse Current Visit: Yes Status: Acute Code(s): F19.10 - OTHER PSYCHOACTIVE SUBSTANCE ABUSE, UNCOMPLICATED SNOMED Code(s): 265549648 Plan: 1patient with right hand dorsal abscess and cellulitis in this patient who do have a history of IV drug use and apparently did inject into the area likely related to IV drug use and likely from gram-positive skin kobi less likely gram-negative infection. 2patient is scheduled for surgical drainage and deep cultures this afternoon. 3patient to continue with vancomycin pharmacy to dose target trough of 15 while watching kidney function and vancomycin trough closely. Time with Patient: Less than 30
[2022-02-20] MEDS: HEPARIN SODIUM,PORCINE/PF 5,000 UNIT/0.5 ML SYRINGE SQ SCH ×2 (09:45→20:13)
[2022-02-20] MEDS: NON FORMULARY DRUG (Lisdexamfetamine Dimesylate [Vyvanse] 50 MG Capsule) PO SCH (10:17)
[2022-02-20] MEDS ORDERED: LORazepam 1 MG/0.5 ML VIAL IV PRN (10:49)
[2022-02-20] MEDS ORDERED: oxyCODONE-APAP 10-325MG 1 EACH TAB PO PRN (10:49)
[2022-02-20] MEDS ORDERED: LORazepam 1 MG/0.5 ML VIAL IV STA (10:49)
[2022-02-20] MEDS ORDERED: oxyCODONE-APAP 10-325MG 1 EACH TAB PO STA (10:49)
--- NOTE | 2022-02-20 11:10 | P.PN ---
Subjective Progress Note Date: 02/20/22 Principal diagnosis: Status post I&D of a dorsal hand abscess Patient is examined today at bedside, she is resting in her hospital bed. She is quite agitated on exam today, she is very adamant about discharge. No long discussion regarding the need to stay in hospital until culture and sensitivities are back to determine proper antibiotics. I did discuss with her I would recheck to infectious disease regarding discharge, options and antibiotics. She has chills at this time. Her pain is controlled. Objective - Vital Signs Vital signs: Vital Signs Temp 98.3 F 02/20/22 07:04 Pulse 78 02/20/22 06:53 Resp 14 02/20/22 06:53 BP 109/75 02/20/22 06:53 Pulse Ox 100 02/20/22 06:53 FiO2 Intake & Output 02/19/22 02/20/22 02/20/22 18:59 06:59 18:59 Intake Total 200 851 118 Output Total 10 Balance 200 841 118 Intake: IV 200 851 Oral 118 Output: Estimated Blood Loss 10 Other: Voiding Method Toilet # Voids 1 # Bowel Movements 1 - Exam Right upper extremity: Postop bandages in good position and condition, no active drainage is visualized. Mild swelling present in all digits. She is able to wiggle fingers with minimal difficulty. Her sensory exam to light touch both proximal and distal to the bandage are intact. Range of motion the elbow along with shoulder, no pain is reproduced in those joints. - Labs CBC & Chem 7: 02/19/22 05:54 02/19/22 05:54 Labs: Microbiology - Last 24 Hours (Table) 02/18/22 05:30 Blood Culture - Preliminary Blood No Growth after 48 hours 02/18/22 05:15 Blood Culture - Preliminary Blood No Growth after 48 hours 02/19/22 18:49 Anaerobic Culture - Preliminary Hand - Right 02/19/22 18:49 Wound Culture - Preliminary Hand - Right Assessment and Plan Assessment: Postoperative day #1 status post I&D right dorsal hand abscess IVDA Other medical comorbidities Plan: Pain control, continue oral [place] as needed for discomfort, we'll discharge on Tylenol Continue IV antibiotics Encourage incentive spirometer Dressing instructions, will change postop dressing tomorrow bedside Gentle range of motion exercises of the right hand and wrist are okay, advised patient to avoid strenuous use Other medical leader recommendations further recommendations to follow Further recommendations to follow Time with Patient: Less than 30
--- NOTE | 2022-02-20 15:07 | P.PN ---
Subjective Progress Note Date: 02/20/22 Patient is a 26-year-old female with PMH of IV drug abuse presents ED for right hand pain and swelling has been ongoing for the past 5 days. Though she denies history of IV drug use, this is been documented by multiple providers. Apparently she did attempt to inject and missed her vein in her right hand. Patient also reports subjective fever and chills over the last 2 days. She currently reports right hand pain, 10 out of 10 in severity. When symptoms persisted this prompted her to come to the ED. She denies any headache, lower extremity edema, nausea or vomiting, cough, chest pain, shortness breath, palpitations, changes in urination or bowel habits. No changes in appetite or weight. She denies any dizziness, numbness/weakness/tingling of the extremities. In the ED, she has not to be tachycardic with heart rate in the 120s. T-max of 99.5. Vital signs were otherwise stable. CBC showed platelet count 145. CMP showed sodium 130, chloride of 97, BUN of 0.40. Lactic acid was negative. Magnesium is 1.7. Patient is admitted for hand abscess with orthopedic surgery consultation. Patient was seen and examined. No acute events overnight. Underwent I&D 02/19. She reports continued pain in her right hand. She is quite anxious and emotional today and states she wants to go home. General: non toxic, anxious, appears at stated age Derm: warm, dry Head: atraumatic, normocephalic, symmetric Eyes: EOMI, no lid lag, anicteric sclera Mouth: no lip lesion, mucus membranes moist Cardiovascular: Normal S1 S2, no murmur, 2+ radial pulse bilaterally Lungs: CTA bilateral, no rhonchi, no rales , no accessory muscle use Abdominal: soft, nontender to palpation, no guarding, no appreciable organomegaly Ext: no gross muscle atrophy, no edema, no contractures, right hand wrapped dressing c/d/i Neuro: no focal neuro deficits Psych: Alert, oriented, appropriate affect #Gram + bacteremia #Right hand abscess #Pancytopenia #Anxiety #History of IV drug use #Nicotine abuse Resolved: Hyponatremia Chronic conditions: Asthma Blood culture positive for gram-positive cocci. Repeat blood culture. Currently on vancomycin. Infectious disease on board. Patient does not meet sepsis criteria. Lactic acid negative. Orthopedic surgery has been consulted, plans for I&D today. Continue Vancomycin and Unasyn discontinued by ID. Follow blood cultures. Pain control with Percocet and Dilaudid as needed. Tylenol as needed for fever. Infectious disease is on board. WBC count of 4.12, Hg 9.7, Hct 29.2, Plt 133. Possibly dilutional. Given history of IVDU, would recommend Hepatitis panel and testing for HIV. Will discuss with patient. Ativan as needed for anxiety. Patient has been encouraged to quit illicit substances. Nicotine patch has been offered. Albuterol neb as needed for shortness of breath and wheezing. DVT prophylaxis: Heparin Discussed with: Patient Anticipated discharge: 2-3 days Objective - Vital Signs Vital signs: Vital Signs Temp 99.0 F 02/20/22 13:42 Pulse 81 02/20/22 13:42 Resp 20 02/20/22 13:42 BP 115/52 02/20/22 13:42 Pulse Ox 99 02/20/22 13:42 FiO2 Intake & Output 02/19/22 02/20/22 02/20/22 18:59 06:59 18:59 Intake Total 200 851 358 Output Total 10 Balance 200 841 358 Intake: IV 200 851 Oral 358 Output: Estimated Blood Loss 10 Other: Voiding Method Toilet # Voids 1 2 # Bowel Movements 1 - Labs CBC & Chem 7: 02/19/22 05:54 02/19/22 05:54 Labs: Microbiology - Last 24 Hours (Table) 02/18/22 05:15 Blood Culture Gram Stain - Preliminary Blood 02/18/22 05:30 Blood Culture - Preliminary Blood No Growth after 48 hours 02/19/22 18:49 Anaerobic Culture - Preliminary Hand - Right 02/19/22 18:49 Wound Culture - Preliminary Hand - Right
[2022-02-20] MEDS: SERTRALINE 100 MG TAB PO SCH (20:13)
--- NOTE | 2022-02-21 00:32 | P.PN ---
Subjective Progress Note Date: 02/20/22 Principal diagnosis: Right hand abscess and cellulitis Patient is a 26-year-old occasional female with a past medical history significant for IV drug use presenting to the hospital with right hand dorsum in swelling redness has been diagnosed with an abscess associated with IV drug use. On today's evaluation that is 02/20/2022 patient denies having any fever or any chills patient is breathing comfortably the patient pain to the right hand dorsum is currently controlled denies any chest pain shortness of breath or cough no nausea no vomiting no abdominal pain no diarrhea, patient has been insisting on going home Objective - Vital Signs Vital signs: Vital Signs Temp 99.0 F 02/20/22 13:42 Pulse 81 02/20/22 13:42 Resp 20 02/20/22 13:42 BP 115/52 02/20/22 13:42 Pulse Ox 99 02/20/22 13:42 FiO2 Intake & Output 02/19/22 02/20/22 02/20/22 18:59 06:59 18:59 Intake Total 200 851 358 Output Total 10 Balance 200 841 358 Intake: IV 200 851 Oral 358 Output: Estimated Blood Loss 10 Other: Voiding Method Toilet # Voids 1 2 # Bowel Movements 1 - Exam GENERAL DESCRIPTION: An female lying in bed in no distress RESPIRATORY SYSTEM: Unlabored breathing , decreased breath sounds at bases HEART: S1 S2 regular rate and rhythm , ABDOMEN: Soft , no tenderness EXTREMITIES: Right hand dorsum is currently dressed no drainage of the dressing - Labs CBC & Chem 7: 02/19/22 05:54 02/19/22 05:54 Labs: Microbiology - Last 24 Hours (Table) 02/18/22 05:15 Blood Culture Gram Stain - Preliminary Blood 02/18/22 05:30 Blood Culture - Preliminary Blood No Growth after 48 hours 02/19/22 18:49 Anaerobic Culture - Preliminary Hand - Right 02/19/22 18:49 Wound Culture - Preliminary Hand - Right Assessment and Plan (1) Abscess of right hand Current Visit: Yes Status: Acute Code(s): L02.511 - CUTANEOUS ABSCESS OF RIGHT HAND SNOMED Code(s): 70926024814708647 (2) IV drug abuse Current Visit: Yes Status: Acute Code(s): F19.10 - OTHER PSYCHOACTIVE SUBSTANCE ABUSE, UNCOMPLICATED SNOMED Code(s): 115067004 Plan: 1patient with right hand dorsal abscess and cellulitis in this patient who do have a history of IV drug use and apparently did inject into the area likely related to IV drug use and likely from gram-positive skin kobi less likely gram-negative infection. 2patient is s/p surgical drainage and deep cultures 02/19/2022. 33patient to continue vancomycin while waiting for the culture to finalize patient has been advised to stay in the hospital till the culture to finalize so she can be sent home on the right antibiotics questions concerns answered Time with Patient: Less than 30
[2022-02-21] MEDS: HYDROmorphone 1 MG/ML 1 ML SYRINGE IVP PRN ×7 (02:03→21:47)
[2022-02-21] MEDS: SODIUM CHLORIDE 0.9% 1,000 ML IV SCH (04:52)
[2022-02-21] MEDS: AMPICILLIN-SULBACTAM 3 GM in SODIUM CHLORIDE 0.9% 100 ML IVPB SCH ×3 (04:52→21:47)
[2022-02-21] MEDS: VANCOMYCIN 1,250 MG in SODIUM CHLORIDE 0.9% 250 ML IVPB SCH ×3 (06:31→23:39)
[2022-02-21] MEDS: NICOTINE 14MG/24HR PATCH TRANSDERM SCH (07:50)
[2022-02-21] MEDS: HEPARIN SODIUM,PORCINE/PF 5,000 UNIT/0.5 ML SYRINGE SQ SCH ×2 (07:50→20:09)
[2022-02-21] MEDS: NON FORMULARY DRUG (Lisdexamfetamine Dimesylate [Vyvanse] 50 MG Capsule) PO SCH (08:10)
[2022-02-21 08:54] LABS: HCT 27.5 % (37.2-46.3); HGB 9.3 g/dL (12.0-15.0); MCHC 33.8 g/dL (32.0-37.0); MCV 88.7 fL (80.0-97.0); Mean Platelet Volume 10.5 fL (9.5-12.2); NRBC Per 100 WBC 0 /100 WBCS (0.0-0.0); Platelet Count 207 X 10*3/uL (140-440); RDW 11.9 % (11.5-14.5); WBC 4.07 X 10*3/uL (4.50-10.00)
--- NOTE | 2022-02-21 13:00 | P.PN ---
Subjective Progress Note Date: 02/21/22 Patient is a 26-year-old female with PMH of IV drug abuse presents ED for right hand pain and swelling has been ongoing for the past 5 days. Though she denies history of IV drug use, this is been documented by multiple providers. Apparently she did attempt to inject and missed her vein in her right hand. Patient also reports subjective fever and chills over the last 2 days. She currently reports right hand pain, 10 out of 10 in severity. When symptoms persisted this prompted her to come to the ED. She denies any headache, lower extremity edema, nausea or vomiting, cough, chest pain, shortness breath, palpitations, changes in urination or bowel habits. No changes in appetite or weight. She denies any dizziness, numbness/weakness/tingling of the extremities. In the ED, she has not to be tachycardic with heart rate in the 120s. T-max of 99.5. Vital signs were otherwise stable. CBC showed platelet count 145. CMP showed sodium 130, chloride of 97, BUN of 0.40. Lactic acid was negative. Magnesium is 1.7. Patient is admitted for hand abscess with orthopedic surgery consultation. Patient was seen and examined. No acute events overnight. Underwent I&D 02/19. She reports continued pain in her right hand. She is upset about the beeping in her room. General: non toxic, anxious, appears at stated age Derm: warm, dry Head: atraumatic, normocephalic, symmetric Eyes: EOMI, no lid lag, anicteric sclera Mouth: no lip lesion, mucus membranes moist Cardiovascular: Normal S1 S2, no murmur, 2+ radial pulse bilaterally Lungs: CTA bilateral, no rhonchi, no rales , no accessory muscle use Ext: no gross muscle atrophy, no edema, no contractures, right hand wrapped dressing c/d/i Neuro: no focal neuro deficits Psych: Alert, oriented, appropriate affect #Gram + bacteremia #Right hand abscess #Pancytopenia #Anxiety #History of IV drug use #Nicotine abuse Resolved: Hyponatremia Chronic conditions: Asthma Blood culture positive for gram-positive cocci. Repeat blood culture. Curr ently on vancomycin. Infectious disease on board. Patient does not meet sepsis criteria. Lactic acid negative. Orthopedic surgery has been consulted, plans for I&D today. Continue Vancomycin and Unasyn discontinued by ID. Follow blood cultures. Pain control with Percocet and Dilaudid as needed. Tylenol as needed for fever. Infectious disease is on board. Possibly dilutional. Given history of IVDU, would recommend Hepatitis panel and testing for HIV. Will discuss with patient. Ativan as needed for anxiety. Patient has been encouraged to quit illicit substances. Nicotine patch has been offered. Albuterol neb as needed for shortness of breath and wheezing. DVT prophylaxis: Heparin Discussed with: Patient Anticipated discharge: 2-3 days Objective - Vital Signs Vital signs: Vital Signs Temp 98.2 F 02/21/22 08:00 Pulse 88 02/21/22 08:00 Resp 16 02/21/22 08:00 BP 104/67 02/21/22 08:00 Pulse Ox 99 02/21/22 08:00 FiO2 Intake & Output 02/20/22 02/21/22 02/21/22 18:59 06:59 18:59 Intake Total 598 1600 590 Balance 598 1600 590 Intake: Intake, IV Titration 1100 Amount Ampicillin-Sulbactam 3 gm 100 In Sodium Chloride 0.9% 100 ml @ 200 mls/hr IVPB Q8H [facility]IK Rx#:[id number] Sodium Chloride 0.9% 1, 1000 000 ml @ 50 mls/hr IV . Q20H [facility]IK Rx#:[id number] Oral 598 500 590 Other: Voiding Method Toilet # Voids 2 - Labs CBC & Chem 7: 02/21/22 05:11 02/19/22 05:54 Labs: Abnormal Lab Results - Last 24 Hours (Table) 02/21/22 Range/Units 05:11 WBC 4.07 L (4.50-10.00) X 10*3/uL RBC 3.10 L (4.10-5.20) X 10*6/uL Hgb 9.3 L (12.0-15.0) g/dL Hct 27.5 L (37.2-46.3) % Microbiology - Last 24 Hours (Table) 02/18/22 05:30 Blood Culture - Preliminary Blood No Growth after 72 hours 02/19/22 18:49 Wound Culture - Preliminary Hand - Right 02/18/22 05:15 Blood Culture Gram Stain - Preliminary Blood
[2022-02-21] MEDS: oxyCODONE-APAP 10-325MG 1 EACH TAB PO SCH ×4 (13:08→23:39)
--- NOTE | 2022-02-21 13:31 | P.PN ---
Subjective Progress Note Date: 02/21/22 Principal diagnosis: Status post I&D of a dorsal hand abscess Patient examined at bedside today, she is resting comfortable. Pain is currently controlled. She denies any fevers or chills. I did again discuss with the patient possibility of discharge versus taking hospital. We would like patient to stand hospital at this time. Her blood culture positive, was able to discuss this with infectious disease. Objective - Vital Signs Vital signs: Vital Signs Temp 98.2 F 02/21/22 08:00 Pulse 88 02/21/22 08:00 Resp 16 02/21/22 08:00 BP 104/67 02/21/22 08:00 Pulse Ox 99 02/21/22 08:00 FiO2 Intake & Output 02/20/22 02/21/22 02/21/22 18:59 06:59 18:59 Intake Total 598 1600 590 Balance 598 1600 590 Intake: Intake, IV Titration 1100 Amount Ampicillin-Sulbactam 3 gm 100 In Sodium Chloride 0.9% 100 ml @ 200 mls/hr IVPB Q8H [facility] Rx#:[id number] Sodium Chloride 0.9% 1, 1000 000 ml @ 50 mls/hr IV . Q20H [facility]IK Rx#:[id number] Oral 598 500 590 Other: Voiding Method Toilet # Voids 2 - Exam Right upper extremity: Postoperative bandages removed. No active drainage, no purulent material. No fluctuance appreciated. Mild swelling present in all digits. She is able to wiggle fingers with minimal difficulty. Her sensory exam to light touch both proximal and distal to the bandage are intact. Range of motion the elbow along with shoulder, no pain is reproduced in those joints. - Labs CBC & Chem 7: 02/21/22 05:11 02/19/22 05:54 Labs: Abnormal Lab Results - Last 24 Hours (Table) 02/21/22 Range/Units 05:11 WBC 4.07 L (4.50-10.00) X 10*3/uL RBC 3.10 L (4.10-5.20) X 10*6/uL Hgb 9.3 L (12.0-15.0) g/dL Hct 27.5 L (37.2-46.3) % Microbiology - Last 24 Hours (Table) 02/18/22 05:30 Blood Culture - Preliminary Blood No Growth after 72 hours 02/19/22 18:49 Wound Culture - Preliminary Hand - Right 02/18/22 05:15 Blood Culture Gram Stain - Preliminary Blood Assessment and Plan Assessment: Postoperative day #2 status post I&D right dorsal hand abscess IVDA Other medical comorbidities Plan: Pain control, continue oral [place] as needed for discomfort, we'll discharge on Tylenol Continue IV antibiotics Encourage incentive spirometer Dressing was changed at bedside, continue to monitor Gentle range of motion exercises of the right hand and wrist are okay, advised patient to avoid strenuous use Recommending patient remain in hospital for finalization of cultures and negative blood cultures. Continue antibiotics. We will continue to follow. Time with Patient: Less than 30
[2022-02-21] MEDS ORDERED: VANCOMYCIN TROUGH DUE 1 EACH MISC MISCELLANE ONE (14:00)
[2022-02-21] MEDS: SERTRALINE 100 MG TAB PO SCH (20:09)
[2022-02-21] MEDS: LORazepam 1 MG TAB PO PRN (20:09)
--- NOTE | 2022-02-21 23:36 | P.PN ---
Subjective Progress Note Date: 02/21/22 Principal diagnosis: Right hand abscess and cellulitis Patient is a 26-year-old occasional female with a past medical history significant for IV drug use presenting to the hospital with right hand dorsum in swelling redness has been diagnosed with an abscess associated with IV drug use. On today's evaluation that is 02/21/2022 the patient remains to be afebrile, breathing comfortably on room air the patient pain to the right hand is currently controlled patient denies having any chest pain or shortness of breath or cough no abdominal pain no diarrhea Objective - Vital Signs Vital signs: Vital Signs Temp 98.2 F 02/21/22 08:00 Pulse 88 02/21/22 08:00 Resp 16 02/21/22 08:00 BP 104/67 02/21/22 08:00 Pulse Ox 99 02/21/22 08:00 FiO2 Intake & Output 02/20/22 02/21/22 02/21/22 18:59 06:59 18:59 Intake Total 598 1600 590 Balance 598 1600 590 Intake: Intake, IV Titration 1100 Amount Ampicillin-Sulbactam 3 gm 100 In Sodium Chloride 0.9% 100 ml @ 200 mls/hr IVPB Q8H [facility] Rx#:[id number] Sodium Chloride 0.9% 1, 1000 000 ml @ 50 mls/hr IV . Q20H [facility]IK Rx#:[id number] Oral 598 500 590 Other: Voiding Method Toilet # Voids 2 - Exam GENERAL DESCRIPTION: An female lying in bed in no distress RESPIRATORY SYSTEM: Unlabored breathing , decreased breath sounds at bases HEART: S1 S2 regular rate and rhythm , ABDOMEN: Soft , no tenderness EXTREMITIES: Right hand dorsum is currently dressed no drainage of the dressing - Labs CBC & Chem 7: 02/21/22 05:11 02/19/22 05:54 Labs: Abnormal Lab Results - Last 24 Hours (Table) 02/21/22 Range/Units 05:11 WBC 4.07 L (4.50-10.00) X 10*3/uL RBC 3.10 L (4.10-5.20) X 10*6/uL Hgb 9.3 L (12.0-15.0) g/dL Hct 27.5 L (37.2-46.3) % Microbiology - Last 24 Hours (Table) 02/18/22 05:30 Blood Culture - Preliminary Blood No Growth after 72 hours 02/19/22 18:49 Wound Culture - Preliminary Hand - Right 02/18/22 05:15 Blood Culture Gram Stain - Preliminary Blood Assessment and Plan (1) Abscess of right hand Current Visit: Yes Status: Acute Code(s): L02.511 - CUTANEOUS ABSCESS OF RIGHT HAND SNOMED Code(s): 89158560915972998 (2) IV drug abuse Current Visit: Yes Status: Acute Code(s): F19.10 - OTHER PSYCHOACTIVE SUBSTANCE ABUSE, UNCOMPLICATED SNOMED Code(s): 863516164 Plan: 1patient with right hand dorsal abscess and cellulitis in this patient who do have a history of IV drug use and apparently did inject into the area likely related to IV drug use and likely from gram-positive skin kobi less likely gram-negative infection. 2patient is s/p surgical drainage and deep cultures 02/19/2022 Which are currently pending, patient did have positive blood culture with gram-positive cocci ID sensitivities currently pending. 3patient to continue with the vancomycin while waiting for the blood cultures to be finalized this was explained to the patient and she understood discharge antibiotic will depend upon the final ID of this pathogen and can be either oral versus IV [place] weekly and this was discussed with the orthopedics as well, not an ideal candidate for PICC line and home IV antibiotic therapy
[2022-02-22] MEDS: SODIUM CHLORIDE 0.9% 1,000 ML IV SCH ×2 (00:26→21:17)
[2022-02-22] MEDS: HYDROmorphone 1 MG/ML 1 ML SYRINGE IVP PRN ×7 (01:19→22:10)
[2022-02-22] MEDS: LORazepam 1 MG TAB PO PRN (01:20)
[2022-02-22] MEDS: oxyCODONE-APAP 10-325MG 1 EACH TAB PO SCH ×5 (03:57→20:29)
[2022-02-22] MEDS: AMPICILLIN-SULBACTAM 3 GM in SODIUM CHLORIDE 0.9% 100 ML IVPB SCH ×3 (05:39→21:17)
[2022-02-22] MEDS: VANCOMYCIN 1,250 MG in SODIUM CHLORIDE 0.9% 250 ML IVPB SCH ×3 (06:52→22:10)
[2022-02-22] MEDS: NICOTINE 14MG/24HR PATCH TRANSDERM SCH (07:57)
[2022-02-22] MEDS: HEPARIN SODIUM,PORCINE/PF 5,000 UNIT/0.5 ML SYRINGE SQ SCH ×2 (07:57→20:25)
[2022-02-22] MEDS: NON FORMULARY DRUG (Lisdexamfetamine Dimesylate [Vyvanse] 50 MG Capsule) PO SCH (07:58)
[2022-02-22 08:25] LABS: African American GFR (CKD) >90 (>60 ml/min/1.73 sqM); Non-African American GFR(CKD) >90 (>60 ml/min/1.73 sqM)
--- NOTE | 2022-02-22 12:25 | P.PN ---
Subjective Progress Note Date: 02/22/22 Patient is a 26-year-old female with PMH of IV drug abuse presents ED for right hand pain and swelling has been ongoing for the past 5 days. Though she denies history of IV drug use, this is been documented by multiple providers. Apparently she did attempt to inject and missed her vein in her right hand. Patient also reports subjective fever and chills over the last 2 days. She currently reports right hand pain, 10 out of 10 in severity. When symptoms persisted this prompted her to come to the ED. She denies any headache, lower extremity edema, nausea or vomiting, cough, chest pain, shortness breath, palpitations, changes in urination or bowel habits. No changes in appetite or weight. She denies any dizziness, numbness/weakness/tingling of the extremities. In the ED, she has not to be tachycardic with heart rate in the 120s. T-max of 99.5. Vital signs were otherwise stable. CBC showed platelet count 145. CMP showed sodium 130, chloride of 97, BUN of 0.40. Lactic acid was negative. Magnesium is 1.7. Patient is admitted for hand abscess with orthopedic surgery consultation. Patient was seen and examined. No acute events overnight. Underwent I&D 02/19. She reports well controlled pain in her right hand. General: non toxic, anxious, appears at stated age Derm: warm, dry Head: atraumatic, normocephalic, symmetric Eyes: EOMI, no lid lag, anicteric sclera Mouth: no lip lesion, mucus membranes moist Cardiovascular: Normal S1 S2, no murmur, 2+ radial pulse bilaterally Lungs: CTA bilateral, no rhonchi, no rales , no accessory muscle use Ext: no gross muscle atrophy, no edema, no contractures, right hand wrapped dressing c/d/i Neuro: no focal neuro deficits Psych: Alert, oriented, appropriate affect #Gram + bacteremia #Right hand abscess #Pancytopenia #Anxiety #History of IV drug use #Nicotine abuse Resolved: Hyponatremia Chronic conditions: Asthma Blood culture positive for gram-positive cocci. Repeat blood culture pending. Currently on vancomycin. Infectious disease on board. Patient does not meet sepsis criteria. Lactic acid negative. Orthopedic surgery has been consulted, plans for I&D today. Continue Vancomycin and Unasyn discontinued by ID. Follow blood cultures. Pain control with Percocet and Dilaudid as needed. Tylenol as needed for fever. Infectious disease is on board. Possibly dilutional. Given history of IVDU, would recommend Hepatitis panel and testing for HIV. Will discuss with patient. Ativan as needed for anxiety. Patient has been encouraged to quit illicit substances. Nicotine patch has been offered. Albuterol neb as needed for shortness of breath and wheezing. DVT prophylaxis: Heparin Discussed with: Patient Anticipated discharge: 1-2 days Objective - Vital Signs Vital signs: Vital Signs Temp 98.3 F 02/22/22 08:05 Pulse 71 02/22/22 08:05 Resp 18 02/22/22 08:05 BP 101/66 02/22/22 08:05 Pulse Ox 100 02/22/22 08:05 FiO2 Intake & Output 02/21/22 02/22/22 02/22/22 18:59 06:59 18:59 Intake Total 590 350 Balance 590 350 Intake: Intake, IV Titration 350 Amount Ampicillin-Sulbactam 3 gm 100 In Sodium Chloride 0.9% 100 ml @ 200 mls/hr IVPB Q8H MALIK Rx#:[id number] Vancomycin 1,250 mg In 250 Sodium Chloride 0.9% 250 ml @ 125 mls/hr IVPB Q8H [facility] Rx#:[id number] Oral 590 Other: Voiding Method Toilet # Voids 3 - Labs CBC & Chem 7: 02/21/22 05:11 02/22/22 07:29 Labs: Abnormal Lab Results - Last 24 Hours (Table) 02/22/22 Range/Units 07:29 Creatinine 0.51 L (0.52-1.04) mg/dL Microbiology - Last 24 Hours (Table) 02/18/22 05:30 Blood Culture - Preliminary Blood No Growth after 96 hours 02/19/22 18:49 Gram Stain - Preliminary Hand - Right Wound Culture - Preliminary
--- NOTE | 2022-02-22 13:23 | P.PN ---
Subjective Progress Note Date: 02/22/22 Principal diagnosis: Status post I&D of a dorsal hand abscess Patient examined at bedside today, she is resting comfortable. Pain is currently controlled. She denies any fevers or chills. Awaiting final culture and sensitivity results. Objective - Vital Signs Vital signs: Vital Signs Temp 98.3 F 02/22/22 08:05 Pulse 71 02/22/22 08:05 Resp 18 02/22/22 08:05 BP 101/66 02/22/22 08:05 Pulse Ox 100 02/22/22 08:05 FiO2 Intake & Output 02/21/22 02/22/22 02/22/22 18:59 06:59 18:59 Intake Total 590 350 Balance 590 350 Intake: Intake, IV Titration 350 Amount Ampicillin-Sulbactam 3 gm 100 In Sodium Chloride 0.9% 100 ml @ 200 mls/hr IVPB Q8H MALIK Rx#:[id number] Vancomycin 1,250 mg In 250 Sodium Chloride 0.9% 250 ml @ 125 mls/hr IVPB Q8H [facility]IK Rx#:[id number] Oral 590 Other: Voiding Method Toilet # Voids 3 - Exam Right upper extremity: postoperative dressing is in good position and condition. Mild swelling present in all digits. She is able to wiggle fingers with minimal difficulty. Her sensory exam to light touch both proximal and distal to the bandage are intact. Range of motion the elbow along with shoulder, no pain is reproduced in those joints. - Labs CBC & Chem 7: 02/21/22 05:11 02/22/22 07:29 Labs: Abnormal Lab Results - Last 24 Hours (Table) 02/22/22 Range/Units 07:29 Creatinine 0.51 L (0.52-1.04) mg/dL Microbiology - Last 24 Hours (Table) 02/18/22 05:30 Blood Culture - Preliminary Blood No Growth after 96 hours 02/19/22 18:49 Gram Stain - Preliminary Hand - Right Wound Culture - Preliminary Assessment and Plan Assessment: Postoperative day #3 status post I&D right dorsal hand abscess IVDA Other medical comorbidities Plan: Pain control, continue oral [place] as needed for discomfort, we'll discharge on Tylenol Continue IV antibiotics Encourage incentive spirometer Dressing was changed at bedside, continue to monitor Gentle range of motion exercises of the right hand and wrist are okay, advised patient to avoid strenuous use Hopeful discharge home tomorrow Time with Patient: Less than 30
[2022-02-22] MEDS: SERTRALINE 100 MG TAB PO SCH (20:25)
--- NOTE | 2022-02-22 23:14 | P.PN ---
Subjective Progress Note Date: 02/22/22 Principal diagnosis: Right hand abscess and cellulitis Patient is a 26-year-old occasional female with a past medical history significant for IV drug use presenting to the hospital with right hand dorsum in swelling redness has been diagnosed with an abscess associated with IV drug use. On today's evaluation that is 02/22/2022 the patient remains to be afebrile the patient is breathing comfortably denies having any chest pain or shortness of breath or cough no nausea vomiting no abdominal pain and no diarrhea pain to the right and nursing is currently controlled Objective - Vital Signs Vital signs: Vital Signs Temp 98.3 F 02/22/22 08:05 Pulse 71 02/22/22 08:05 Resp 18 02/22/22 08:05 BP 101/66 02/22/22 08:05 Pulse Ox 100 02/22/22 08:05 FiO2 Intake & Output 02/21/22 02/22/22 02/22/22 18:59 06:59 18:59 Intake Total 590 350 Balance 590 350 Intake: Intake, IV Titration 350 Amount Ampicillin-Sulbactam 3 gm 100 In Sodium Chloride 0.9% 100 ml @ 200 mls/hr IVPB Q8H MALIK Rx#:[id number] Vancomycin 1,250 mg In 250 Sodium Chloride 0.9% 250 ml @ 125 mls/hr IVPB Q8H MALIK Rx#:[id number] Oral 590 Other: Voiding Method Toilet # Voids 3 - Exam GENERAL DESCRIPTION: An female lying in bed in no distress RESPIRATORY SYSTEM: Unlabored breathing , decreased breath sounds at bases HEART: S1 S2 regular rate and rhythm , ABDOMEN: Soft , no tenderness EXTREMITIES: Right hand dorsum is currently dressed no drainage of the dressing - Labs CBC & Chem 7: 02/21/22 05:11 02/22/22 07:29 Labs: Abnormal Lab Results - Last 24 Hours (Table) 02/22/22 Range/Units 07:29 Creatinine 0.51 L (0.52-1.04) mg/dL Microbiology - Last 24 Hours (Table) 02/18/22 05:30 Blood Culture - Preliminary Blood No Growth after 96 hours 02/19/22 18:49 Gram Stain - Preliminary Hand - Right Wound Culture - Preliminary Assessment and Plan (1) Abscess of right hand Current Visit: Yes Status: Acute Code(s): L02.511 - CUTANEOUS ABSCESS OF RIGHT HAND SNOMED Code(s): 10080801049220552 (2) IV drug abuse Current Visit: Yes Status: Acute Code(s): F19.10 - OTHER PSYCHOACTIVE SUBSTANCE ABUSE, UNCOMPLICATED SNOMED Code(s): 925618949 Plan: 1patient with right hand dorsal abscess and cellulitis in this patient who do have a history of IV drug use and apparently did inject into the area likely related to IV drug use and likely from gram-positive skin kobi less likely gram-negative infection. 2patient is s/p surgical drainage and deep cultures 02/19/2022 Which are currently pending, patient did have positive blood culture with gram-positive cocci ID sensitivities are still pending. 3Patient to continue with the vancomycin and Unasyn at this point while waiting for the culture to finalize to determine her discharge antibiotics multiple questions concerns answered Time with Patient: Less than 30
[2022-02-23] MEDS: oxyCODONE-APAP 10-325MG 1 EACH TAB PO SCH ×4 (00:09→11:32)
[2022-02-23] MEDS: HYDROmorphone 1 MG/ML 1 ML SYRINGE IVP PRN ×5 (01:09→15:11)
[2022-02-23] MEDS: AMPICILLIN-SULBACTAM 3 GM in SODIUM CHLORIDE 0.9% 100 ML IVPB SCH ×2 (04:59→14:19)
[2022-02-23 05:48] LABS: African American GFR (CKD) >90 (>60 ml/min/1.73 sqM); Non-African American GFR(CKD) >90 (>60 ml/min/1.73 sqM)
[2022-02-23] MEDS ORDERED: VANCOMYCIN TROUGH DUE 1 EACH MISC MISCELLANE ONE (06:00)
[2022-02-23] MEDS: VANCOMYCIN 1,250 MG in SODIUM CHLORIDE 0.9% 250 ML IVPB SCH (06:22)
[2022-02-23] MEDS: NICOTINE 14MG/24HR PATCH TRANSDERM SCH (08:17)
[2022-02-23] MEDS: HEPARIN SODIUM,PORCINE/PF 5,000 UNIT/0.5 ML SYRINGE SQ SCH (08:17)
[2022-02-23] MEDS: NON FORMULARY DRUG (Lisdexamfetamine Dimesylate [Vyvanse] 50 MG Capsule) PO SCH (08:29)
[2022-02-23 08:37] VITALS: BP 110/70; PULSE 74; RESP 14; TEMP 98.1
--- NOTE | 2022-02-23 09:29 | XR ---
EXAMINATION TYPE: XR forearm LT DATE OF EXAM: 02/23/2022 COMPARISON: NONE HISTORY: Pain Two views of the forearm demonstrate that the osseous structures appear to be intact and the joint sp aces appear to be preserved. There is no acute fracture or dislocation. There is a metallic linear density adjacent to the lateral condyle near the humeral and radial head articulation. IMPRESSION: 1. Correlate for linear metallic foreign body within the anterior soft tissues along the radial aspec t of the femoral epicondyles.
[2022-02-23 09:53] LABS: Hepatitis A Antibody IgM Nonreactive (Nonreactive); Hepatitis B Core IgM Nonreactive (Nonreactive); Hepatitis B Surface Antigen Nonreactive (Nonreactive); Hepatitis C IgG Antibody Nonreactive (Nonreactive)
--- NOTE | 2022-02-23 14:53 | P.PN ---
Subjective Progress Note Date: 02/23/22 Principal diagnosis: Status post I&D of a dorsal hand abscess Patient examined at bedside today, she is resting comfortable. Pain is currently controlled. She denies any fevers or chills. Objective - Vital Signs Vital signs: Vital Signs Temp 98.1 F 02/23/22 08:00 Pulse 74 02/23/22 08:00 Resp 14 02/23/22 08:00 BP 110/70 02/23/22 08:00 Pulse Ox 100 02/23/22 08:00 FiO2 Intake & Output 02/22/22 02/23/22 02/23/22 18:59 06:59 18:59 Intake Total 300 472 Output Total 4 Balance 296 472 Intake: Oral 300 472 Output: Urine 4 Other: Voiding Method Toilet Toilet # Voids 1 - Exam Right upper extremity: postoperative dressing is in good position and condition. Mild swelling present in all digits. She is able to wiggle fingers with minimal difficulty. Her sensory exam to light touch both proximal and distal to the bandage are intact. Range of motion the elbow along with shoulder, no pain is reproduced in those joints. - Labs CBC & Chem 7: 02/21/22 05:11 02/23/22 05:21 Labs: Microbiology - Last 24 Hours (Table) 02/18/22 05:30 Blood Culture - Preliminary Blood No Growth after 120 hours 02/19/22 18:49 Gram Stain - Preliminary Hand - Right Wound Culture - Preliminary Beta Hemolytic Streptococcus F Alpha Hemolytic Streptococcus 02/21/22 14:59 Blood Culture - Preliminary Blood No Growth after 24 hours 02/18/22 05:15 Blood Culture Gram Stain - Final Blood Blood Culture - Final Peptostreptococcus species Assessment and Plan Assessment: Postoperative day #4 status post I&D right dorsal hand abscess IVDA Other medical comorbidities Plan: Pain control, oral tylenol Continue IV antibiotics Encourage incentive spirometer Dressing was changed at bedside, continue to monitor Gentle range of motion exercises of the right hand and wrist are okay, advised patient to avoid strenuous use Stable for discharge today Time with Patient: Less than 30
--- NOTE | 2022-02-23 15:53 | P.DS ---
Providers Date of admission: 02/18/22 14:56 Expected date of discharge: 02/23/22 Attending physician: Myranda Garcia MD Consults: 02/18/22 05:14 Consult Physician Routine Consulting Provider: Bladimir Guevara Consult Reason/Comments: abscess.hand Do you want consulting provider notified?: Yes 02/18/22 08:49 Consult Physician Routine Consulting Provider: Maya Carroll Consult Reason/Comments: ID Management - right hand dorsum abscess Do you want consulting provider notified?: Yes Primary care physician: Stated None Hospital Course: Discharge Diagnosis: Strep abscess right hand with cellulitis Peptostreptococcus bacteremia, likely contaminant Pancytopenia Anxiety Nicotine abuse Hyponatremia Asthma Hospital Course: Patient is a 26-year-old female with IV drug abusewho presented to the ED for right hand pain and swelling has been ongoing for the past 5 days. In the ED, she was found to be tachycardic with heart rate in the 120s. T-max of 99.5. Vital signs were otherwise stable. CBC showed platelet count 145. CMP showed sodium 130, chloride of 97, BUN of 0.40. Lactic acid was negative. Magnesium is 1.7. Patient was admitted for hand abscess with orthopedic surgery consultation. Patient underwent I&D on 02/19 of the right hand. Cultures were obtained and came back with alpha and beta hemolytic strep. She also had 1 blood culture positive for Peptostreptococcus. Her white blood cell count remained normal during her hospital stay. Her hepatitis A, B, and C was negative. She was doing well and was determined stable for discharge home. She did have an x-ray of her left arm which showed small retained foreign body in the left forearm. Orthopedics will follow up as an outpatient basis. Follow-up: Orthopedic surgery on 03/04/22 at 3:20 PM, Dr. jonny shearer 1-2 days. Augmentin for the next 14 days. She was given instructions to seek drug rehabilitation, patient denies needing this as she is currently working with [facility]. Pending labs: HIV Patient seen and examined at bedside. She continues to have some pain in her right arm. She is asking for increase Dilaudid. I informed her she would be discharged home with Motrin only with her history of drug abuse. Vital signs reviewed and stable. General: nontoxic, no distress, appears at stated age Derm: warm, dry, right arm with dressing in place. Head: atraumatic, normocephalic, symmetric Eyes: EOMI, no lid lag, anicteric sclera Mouth: no lip lesion, mucus membranes moist Cardiovascular: S1S2 reg, no murmur, positive posterior tibial pulse bilateral, Lungs: CTA bilateral, no rhonchi, no rales , no accessory muscle use Abdominal: soft, nontender to palpation, no guarding, no appreciable organomegaly Ext: no gross muscle atrophy, no edema, no contractures Neuro: CN II-XI grossly intact, no focal neuro deficits Psych: Alert, oriented, appropriate affect A total of 37 minutes of time were spent preparing this complex discharge summary. Patient was discharged on 02/23/22. Patient Condition at Discharge: Good Plan - Discharge Summary New Discharge Prescriptions: New Amoxic-Pot Clav 875-125Mg [Augmentin 875-125] 1 tab PO BID 14 Days #28 tab Ibuprofen [Motrin] 800 mg PO Q8H #30 tab Continue Albuterol Sulfate [Proair Hfa] 2 puff INHALATION RT-Q6H PRN PRN Reason: Shortness Of Breath Sertraline HCl [Zoloft] 200 mg PO HS QUEtiapine [SEROquel] 50 mg PO HS Lisdexamfetamine Dimesylate [Vyvanse] 70 mg PO DAILY OXcarbazepine [Trileptal] 150 mg PO HS QUEtiapine [SEROquel] 25 mg PO HS Ergocalciferol (Vitamin D2) [Drisdol (50,000 Iu)] 1,250 mcg PO Q7D rOPINIRole HCL [Requip] 2 mg PO HS hydrOXYzine HCL [Atarax] 10 mg PO BID PRN PRN Reason: Anxiety Discontinued HYDROcodone/APAP 7.5-325MG [Walton 7.5-325] 1 tab PO TID PRN PRN Reason: Pain Discharge Medication List Albuterol Sulfate [Proair Hfa] 2 puff INHALATION RT-Q6H PRN 03/21/19 [History] QUEtiapine [SEROquel] 50 mg PO HS 08/01/20 [History] Sertraline HCl [Zoloft] 200 mg PO HS 08/01/20 [History] QUEtiapine [SEROquel] 25 mg PO HS 08/13/20 [History] Ergocalciferol (Vitamin D2) [Drisdol (50,000 Iu)] 1,250 mcg PO Q7D 02/18/22 [History] Lisdexamfetamine Dimesylate [Vyvanse] 70 mg PO DAILY 02/18/22 [History] OXcarbazepine [Trileptal] 150 mg PO HS 02/18/22 [History] hydrOXYzine HCL [Atarax] 10 mg PO BID PRN 02/18/22 [History] rOPINIRole HCL [Requip] 2 mg PO HS 02/18/22 [History] Amoxic-Pot Clav 875-125Mg [Augmentin 875-125] 1 tab PO BID 14 Days #28 tab 02/23/22 [Rx] Ibuprofen [Motrin] 800 mg PO Q8H #30 tab 02/23/22 [Rx] Follow up Appointment(s)/Referral(s): Yannick Dao PAC [PHYSICIAN VENDOR MANAGER] - 03/04/22 3:20 pm Jordan Mathis MD [REFERRING] - 1-2 days Patient Instructions/Handouts: Cellulitis (ED), Abscess Incision and Drainage (DC) Activity/Diet/Wound Care/Special Instructions: Special Instructions: Discharge plannin. Keep incision covered and dry while showering until 02/26/2022 2. Utilize anti bacterial soap over incision 3. Avoid strenuous use of hand 4. Follow up at [facility] in 2 weeks Take all antibiotics as prescribe. Ensure follow-up for suture removal Please seek help with drug rehab Discharge Disposition: HOME SELF-CARE
--- NOTE | 2022-03-02 21:36 | P.PN ---
Subjective Progress Note Date: 02/23/22 Principal diagnosis: Right hand abscess and cellulitis Patient is a 26-year-old occasional female with a past medical history significant for IV drug use presenting to the hospital with right hand dorsum in swelling redness has been diagnosed with an abscess associated with IV drug use. On today's evaluation that is 02/23/2022 the patient continues to be afebrile the patient is breathing comfortably on room air, the patient denies having any chest pain or shortness of breath or cough no nausea vomiting no abdominal pain and no diarrhea pain to the right and has decreased in intensity Objective - Vital Signs Vital signs: Vital Signs Temp 98.1 F 02/23/22 08:00 Pulse 74 02/23/22 08:00 Resp 14 02/23/22 08:00 BP 110/70 02/23/22 08:00 Pulse Ox 100 02/23/22 08:00 FiO2 Intake & Output 02/22/22 02/23/22 02/23/22 18:59 06:59 18:59 Intake Total 300 472 Output Total 4 Balance 296 472 Intake: Oral 300 472 Output: Urine 4 Other: Voiding Method Toilet Toilet # Voids 1 - Exam GENERAL DESCRIPTION: An female lying in bed in no distress RESPIRATORY SYSTEM: Unlabored breathing , decreased breath sounds at bases HEART: S1 S2 regular rate and rhythm , ABDOMEN: Soft , no tenderness EXTREMITIES: Right hand dorsum swelling and redness almost resolved no drainage - Labs CBC & Chem 7: 02/21/22 05:11 02/23/22 05:21 Labs: Microbiology - Last 24 Hours (Table) 02/18/22 05:30 Blood Culture - Preliminary Blood No Growth after 120 hours 02/19/22 18:49 Gram Stain - Preliminary Hand - Right Wound Culture - Preliminary Beta Hemolytic Streptococcus F Alpha Hemolytic Streptococcus 02/21/22 14:59 Blood Culture - Preliminary Blood No Growth after 24 hours 02/18/22 05:15 Blood Culture Gram Stain - Final Blood Blood Culture - Final Peptostreptococcus species Assessment and Plan (1) Abscess of right hand Status: Acute Code(s): L02.511 - CUTANEOUS ABSCESS OF RIGHT HAND SNOMED Code(s): 17052300649433368 (2) IV drug abuse Status: Acute Code(s): F19.10 - OTHER PSYCHOACTIVE SUBSTANCE ABUSE, UNCOMPLICATED SNOMED Code(s): 941351605 Plan: 1patient with right hand dorsal abscess and cellulitis in this patient who do have a history of IV drug use and apparently did inject into the area likely related to IV drug use and likely from gram-positive skin kobi less likely gram-negative infection. 2patient is s/p surgical drainage and deep cultures 02/19/2022 Which are growing strep and anaerobes blood culture positive for Peptostreptococcus repeat Blood culture has been negative 3Patient has shown overall clinical improvement she'll finish therapy with oral Augmentin with close outpatient follow-up 4patient x-rays to the left arm issues possibly foreign body/broken needle for the patient is to follow with the PCP or vascular for removal of the foreign body as per discussion with the admitting team working on discharge Time with Patient: Less than 30
== END 2022-02-23 15:48 | disposition home or self-care (01) | DRG 603 ==
LOC: EC 04:26 → SUPCPDRO 04:26 → 6NMEDSUR 05:14 → OBSVTOIN 14:56
PROVIDERS: ADMIT Internal Medicine; ATTEND Internal Medicine
PROC: 0HBFXZZ Excision of Right Hand Skin, External Approach (ICD-10-PCS; 2022-02-19)
PROC: 0J9J0ZZ Drainage of Right Hand Subcutaneous Tissue and Fascia, Open Approach (ICD-10-PCS; principal; 2022-02-19 17:15)
DX: L03.113 Cellulitis of right upper limb (principal); D61.818 Other pancytopenia; E87.1 Hypo-osmolality and hyponatremia; I96 Gangrene, not elsewhere classified; L02.511 Cutaneous abscess of right hand; F19.10 Other psychoactive substance abuse, uncomplicated; J45.909 Unspecified asthma, uncomplicated; F17.210 Nicotine dependence, cigarettes, uncomplicated; M79.89 Other specified soft tissue disorders; R00.0 Tachycardia, unspecified; E86.0 Dehydration; R45.1 Restlessness and agitation; Q07.00 Arnold-Chiari syndrome without spina bifida or hydrocephalus; Z88.5 Allergy status to narcotic agent; Z88.6 Allergy status to analgesic agent; Z79.899 Other long term (current) drug therapy
CPT/HCPCS: 10060; 80048; 80053; 80074; 80202; 81025; 82565; 83605; 83735; 84100; 84703; 85025; 85027; 85610; 85730; 87040; 87070; 87075; 87077; 87186; 87205; 87390; 96365; 96375; 99284

== ENCOUNTER 2022-08-25 20:14 | Emergency (ER) | payer OTHER ==
[2022-08-25 20:38] VITALS: RESP 18
--- NOTE | 2022-08-25 21:25 | XR ---
EXAMINATION TYPE: XR hand complete LT DATE OF EXAM: 08/25/2022 CLINICAL HISTORY: Pain and swelling. TECHNIQUE: Frontal, lateral and oblique images of the left hand are obtained. COMPARISON: Left hand x-ray April 16, 2021 FINDINGS: There is no acute fracture/dislocation evident in the left hand. The joint spaces in the l eft hand appear within normal limits. Focal soft tissue prominence over the dorsal aspect of the left hand. No suspicious bony destruction. IMPRESSION: As above. Need to further investigate soft tissue lesion with ultrasound and/or MRI shoul d be based on clinical correlation.
[2022-08-25] MEDS ORDERED: KETOROLAC 15 MG/ML 1 ML VIAL IM STA (21:40)
--- NOTE | 2022-08-25 21:59 | ED ---
Extremity Problem HPI - General Chief complaint: Extremity Problem,Nontraumatic Stated complaint: LT HAND SWELLING Time Seen by Provider: 08/25/22 21:39 Source: patient, RN notes reviewed Mode of arrival: ambulatory Limitations: no limitations - History of Present Illness Initial comments: This is a 27-year-old female who presents to the emergency department for left hand pain and swelling. States that it started a little over a week ago. Denies any injuries. She saw her primary care provider who said that it was probably a ganglion cyst. However, her pain has continued to worsen and the swelling has progressed to the entire hand, whereas it started more so near the wrist. 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 Denies any recent heroine use. Also denies any fevers or chills. Denies any fevers, chills, sore throat, cough, dyspnea, chest pain, palpitations, abdominal pain, nausea, vomiting, diarrhea, back pain, or headaches. MD Complaint: extremity pain, extremity swelling Onset/Timin -: week(s) Location: left, upper extremity History of Same: Yes - Related Data Home Medications Medication Instructions Recorded Confirmed Albuterol Sulfate [Proair Hfa] 2 puff INHALATION RT-Q6H PRN 03/21/19 02/18/22 QUEtiapine [SEROquel] 50 mg PO HS 08/01/20 02/18/22 Sertraline HCl [Zoloft] 200 mg PO HS 08/01/20 02/18/22 QUEtiapine [SEROquel] 25 mg PO HS 08/13/20 02/18/22 Ergocalciferol (Vitamin D2) 1,250 mcg PO Q7D 02/18/22 02/18/22 [Drisdol (50,000 Iu)] Lisdexamfetamine Dimesylate 70 mg PO DAILY 02/18/22 02/18/22 [Vyvanse] OXcarbazepine [Trileptal] 150 mg PO HS 02/18/22 02/18/22 hydrOXYzine HCL [Atarax] 10 mg PO BID PRN 02/18/22 02/18/22 rOPINIRole HCL [Requip] 2 mg PO HS 11/09/22 11/09/22 Previous Rx's Medication Instructions Recorded Amoxic-Pot Clav 875-125Mg 1 tab PO BID 14 Days #28 tab 02/23/22 [Augmentin 875-125] Ibuprofen [Motrin] 800 mg PO Q8H #30 tab 02/23/22 Cephalexin [Keflex] 500 mg PO Q6HR 7 Days #28 cap 08/25/22 Sulfamethox-Tmp 800-160Mg [Bactrim 1 tab PO Q12HR 7 Days #14 tab 08/25/22 DS 800-160 mg] Allergies Allergy/AdvReac Type Severity Reaction Status Date / Time morphine AdvReac Nausea & Verified 08/25/22 20:34 Vomiting tramadol AdvReac Nausea & Verified 08/25/22 20:34 Vomiting Review of Systems ROS Statement: Those systems with pertinent positive or pertinent negative responses have been documented in the HPI. ROS Other: All systems not noted in ROS Statement are negative. Past Medical History Past Medical History: Asthma, Musculoskeletal Disorder Additional Past Medical History / Comment(s): chiari malformation, diverticulitis, DDD, herniated lumbar disc., receives toradol injections, states hx of palpitations, cysts on kidney, History of Any Multi-Drug Resistant Organisms: None Reported Past Surgical History: No Surgical Hx Reported Additional Past Surgical History / Comment(s): wisdom teeth removed, cyst removed from kidney. I&D lt hand abcess Apr 2021 Past Anesthesia/Blood Transfusion Reactions: Family History of Problems w/ Anesthesia Additional Past Anesthesia/Blood Transfusion Reaction / Comment(s): no anesthesia hx. emotional when waking up after wisdom teeth. Patients Mother gets PONV and combative. Past Psychological History: ADD/ADHD, Anxiety, Depression, Panic Disorder, PTSD Smoking Status: Current every day smoker Past Alcohol Use History: None Reported Past Drug Use History: Marijuana - Past Family History Mother Family Medical History: No Reported History General Exam Limitations: no limitations General appearance: alert, in no apparent distress Head exam: Present: atraumatic, normocephalic, normal inspection Respiratory exam: Present: normal lung sounds bilaterally. Absent: respiratory distress, wheezes, rales, rhonchi, stridor Cardiovascular Exam: Present: regular rate, normal rhythm, normal heart sounds. Absent: systolic murmur, diastolic murmur, rubs, gallop, clicks Extremities exam: Present: other (Palpable tender and erythematous lump on the dorsal aspect of the left hand just inferior to the wrist. There is diffuse swelling of the entire hand.) Neurological exam: Present: alert, oriented X3, CN II-XII intact Psychiatric exam: Present: normal affect, normal mood Course Vital Signs 08/25/22 08/25/22 20:35 23:40 Temperature 98.1 F 98.2 F Pulse Rate 104 H 73 Respiratory 18 18 Rate Blood Pressure 129/80 125/73 O2 Sat by Pulse 98 98 Oximetry Medical Decision Making - Medical Decision Making This is a 27-year-old female who presents to the emergency department for left hand pain and swelling. Was pt. sent in by a medical professional or institution? @ -No Did you speak to anyone other than the patient for history? @ -No Did you review nursing and triage notes? @ -Yes, and I agree, it is accurate with regards to the patient's symptoms. Were old charts reviewed? @ -No Differential Diagnosis? @ -Differential Hand Pain/Swelling: Cellulitis, abscess, gout, fracture, dislocation, contusion, this is not meant to be an all-inclusive list. EKG interpreted by me (3pts min.)? @ -Not obtained X-rays interpreted by me (1pt min.)? @ -X-ray of the left hand obtained. My interpretation identifies no evidence of any acute fractures or dislocations. CT interpreted by me (1pt min.)? @ -Not obtained U/S interpreted by me (1pt. min.)? @ -Not interpreted by me What testing was considered but not performed? (CT, X-rays, U/S, labs)? Why? @ -None What meds were considered but not given? Why? @ -None Did you discuss the management of the patient with other professionals? @ -No Did you reconcile home meds? @ -No Was smoking cessation discussed for >3mins.? @ -No Was critical care preformed (if so, how long)? @ -No Were there social determinants of health that impacted care today? How? (Homelessness, low income, unemployed, alcoholism, drug addiction, transportation, low edu. Level, literacy, decrease access to med. care, longterm, rehab)? @ -No Was there de-escalation of care discussed even if they declined? (Discuss DNR or withdrawal of care, Hospice)? @ -No What co-morbidities impacted this encounter? (DM, HTN, Smoking, COPD, CAD, Cancer, CVA, Hep., AIDS, mental health diagnosis, sleep apnea, morbid obesity)? @ -Hx of IVDU Was patient admitted / discharged? @ -Discharged. Lab work obtained revealing a minor elevation in CRP and was otherwise nonactionable. X-ray obtained initially revealing a focal soft tissue prominence to the dorsal aspect of the left hand. Ultrasound was subsequently obtained. This revealed a complex hypervascular area with a hypoechoic area along or adjacent to a portion of the tendon. Radiology advised consideration of a soft tissue tumor. Findings reviewed with the patient. On physical exam there may be a superimposed infection due to some erythema and increased heat. Prescription for Bactrim and Keflex provided with dosing instructions reviewed. Information for orthopedic follow-up provided. She is advised to contact them first thing in the morning for a follow-up appointment. Discussed that the antibiotics may or may not offer any improvement, and orthopedics will need to be involved for definitive management. Undiagnosed new problem with uncertain prognosis? @ -None Drug Therapy requiring intensive monitoring for toxicity (Heparin, Nitro, Insuli n, Cardizem)? @ -None Were any procedures done? @ -None Diagnosis/symptom? @ -Tendon mass, mass of left hand Acute, or Chronic, or Acute on Chronic? @ -Acute Uncomplicated (without systemic symptoms) or Complicated (systemic symptoms)? @ -Uncomplicated Side effects of treatment? @ -None Exacerbation, Progression, or Severe Exacerbation] @ -Not applicable Poses a threat to life or bodily function? @ -No Return precautions reviewed in depth, the patient is instructed to return to the emergency department with any new, worsening, or concerning symptoms. Patient verbalized understanding. This case was discussed in detail with the attending ED physician, Dr. Martino. Presentation, findings, and treatment plan discussed in detail as well. - Lab Data Result diagrams: 08/25/22 21:51 08/25/22 21:51 Lab Results 08/25/22 08/25/22 08/25/22 Range/Units 21:51 21:51 21:51 WBC 5.8 (3.8-10.6) k/uL RBC 4.26 (3.80-5.40) m/uL Hgb 12.8 (11.4-16.0) gm/dL Hct 38.6 (34.0-46.0) % MCV 90.6 (80.0-100.0) fL MCH 30.2 (25.0-35.0) pg MCHC 33.3 (31.0-37.0) g/dL RDW 12.9 (11.5-15.5) % Plt Count 267 (150-450) k/uL MPV 7.4 Neutrophils % 51 % Lymphocytes % 40 % Monocytes % 5 % Eosinophils % 2 % Basophils % 0 % Neutrophils # 3.0 (1.3-7.7) k/uL Lymphocytes # 2.3 (1.0-4.8) k/uL Monocytes # 0.3 (0-1.0) k/uL Eosinophils # 0.1 (0-0.7) k/uL Basophils # 0.0 (0-0.2) k/uL Sodium 140 (137-145) mmol/L Potassium 3.6 (3.5-5.1) mmol/L Chloride 102 (98-107) mmol/L Carbon Dioxide 26 (22-30) mmol/L Anion Gap 12 mmol/L BUN 6 L (7-17) mg/dL Creatinine 0.47 L (0.52-1.04) mg/dL Est GFR (CKD-EPI)AfAm >90 (>60 ml/min/1.73 sqM) Est GFR (CKD-EPI)NonAf >90 (>60 ml/min/1.73 sqM) Glucose 100 H (74-99) mg/dL Plasma Lactic Acid Davon 1.6 (0.7-2.0) mmol/L Calcium 8.8 (8.4-10.2) mg/dL Total Bilirubin 0.2 (0.2-1.3) mg/dL AST 22 (14-36) U/L ALT 17 (4-34) U/L Alkaline Phosphatase 81 (38-126) U/L C-Reactive Protein 3.1 H (<1.0) mg/dL Total Protein 7.1 (6.3-8.2) g/dL Albumin 4.0 (3.5-5.0) g/dL - Radiology Data Radiology results: report reviewed, image reviewed Disposition Clinical Impression: Tendon mass, Mass of left hand Disposition: HOME SELF-CARE Instructions (If sedation given, give patient instructions): Soft Tissue Mass (ED) Additional Instructions: Return to the emergency department with any new, worsening, or concerning symptoms. Take both antibiotics as prescribed for 7 days. Contact orthopedics as listed below first thing in the morning for a follow-up appointment. Tell them that you were seen in the emergency department and there is concern about a tumor on your tendon in the hand, and you were told to be seen as soon as possible for a follow-up appointment. Prescriptions: Sulfamethox-Tmp 800-160Mg [Bactrim DS 800-160 mg] 1 tab PO Q12HR 7 Days #14 tab Cephalexin [Keflex] 500 mg PO Q6HR 7 Days #28 cap Is patient prescribed a controlled substance at d/c from ED?: No Referrals: None,Stated [Primary Care Provider] - 1-2 days Stiven Florentino DO [Doctor of Osteopathic Medicine] - 1-2 days
[2022-08-25 22:09] LABS: Basophils % (A) 0 %; Eosinophils # (A) 0.1 k/uL (0-0.7); Eosinophils % (A) 2 %; HCT 38.6 % (34.0-46.0); HGB 12.8 gm/dL (11.4-16.0); Lymphocytes # (A) 2.3 k/uL (1.0-4.8); Lymphocytes % (A) 40 %; MCH 30.2 pg (25.0-35.0); MCHC 33.3 g/dL (31.0-37.0); MCV 90.6 fL (80.0-100.0); Mean Platelet Volume 7.4; Monocytes # (A) 0.3 k/uL (0-1.0); Monocytes % (A) 5 %; Neutrophils % (A) 51 %; Platelet Count 267 k/uL (150-450); RBC 4.26 m/uL (3.80-5.40); RDW 12.9 % (11.5-15.5); WBC 5.8 k/uL (3.8-10.6)
[2022-08-25 22:24] LABS: ALT 17 U/L (4-34); AST 22 U/L (14-36); African American GFR (CKD) >90 (>60 ml/min/1.73 sqM); Alkaline Phosphatase 81 U/L (38-126); Anion Gap 12 mmol/L; Blood Urea Nitrogen 6 mg/dL (7-17); C Reactive Protein 3.1 mg/dL (<1.0); Calcium 8.8 mg/dL (8.4-10.2); Carbon Dioxide 26 mmol/L (22-30); Chloride 102 mmol/L (98-107); Glucose 100 mg/dL (74-99); Non-African American GFR(CKD) >90 (>60 ml/min/1.73 sqM); Potassium 3.6 mmol/L (3.5-5.1); Sodium 140 mmol/L (137-145); Total Bilirubin 0.2 mg/dL (0.2-1.3); Total Protein 7.1 g/dL (6.3-8.2)
--- NOTE | 2022-08-25 22:36 | US ---
EXAMINATION TYPE: US extremity nonvasculr mass LT DATE OF EXAM: 08/25/2022 COMPARISON: Xray today CLINICAL INDICATION: Female, 27 years old with history of Left hand swelling with lump; Lump on left hand up to wrist. Pt states the lump is getting bigger and painful. FINDINGS: Complex hypervascular area seen in area of lump measuring 9.7 x 2.6 x 1.2cm Oval circumscribed heterogeneous hypoechoic area appears may be along or adjacent portion of the tendon. Soft tissue tumor needs to be considered. IMPRESSION: As above. business management specialist follow-up advised. Nonemergent contrast enhanced MRI of the hand can be performed to better evaluate and/or characterize. MTDD
[2022-08-25] MEDS ORDERED: IBUPROFEN 600 MG STARTER PACK 4 TAB BTL PO STA (23:06)
[2022-08-25] MEDS ORDERED: CEPHALEXIN 500MG STARTER PACK 4 CAP BTL PO STA (23:06)
[2022-08-25] MEDS ORDERED: SULFAMETH-TMP DS STARTER PACK 2 TAB BTL PO STA (23:06)
[2022-08-26 00:29] VITALS: BP 125/73; PULSE 73; TEMP 98.2
== END 2022-08-25 23:40 | disposition home or self-care (01) ==
LOC: EC 20:14
DX: R22.32 Localized swelling, mass and lump, left upper limb (principal); J45.909 Unspecified asthma, uncomplicated; F41.9 Anxiety disorder, unspecified; F32.A Depression, unspecified; F17.200 Nicotine dependence, unspecified, uncomplicated; F12.90 Cannabis use, unspecified, uncomplicated; Z88.5 Allergy status to narcotic agent; Z88.6 Allergy status to analgesic agent; Z79.899 Other long term (current) drug therapy
CPT/HCPCS: 36415; 80053; 83605; 85025; 86140; 73130; 76882; 99284; 96372; J1885

== ENCOUNTER → 2022-09-12 | Outpatient (CLI) | payer OTHER ==
--- NOTE | 2022-09-13 20:44 | MR ---
EXAMINATION TYPE: MR wrist LT wo con DATE OF EXAM: 09/12/2022 COMPARISON: Radiograph and ultrasound 08/25/2022 HISTORY: 27-year-old female R22.32, Soft tissue mass, left wrist. TECHNIQUE: Multiplanar, multisequence images of the left wrist were obtained without IV contrast. FINDINGS: There is severe dorsal sided soft tissue swelling. No abnormal underlying osseous edema or joint effu dylan. There is moderate to severe tenosynovitis involving the fourth dorsal extensor tendon compartme nt and mild tenosynovial fluid along the second and third dorsal extensor compartments. The underlyin g tendons themselves appear normal. The volar flexor tendons appear normal. Possible pinhole defect within the central portion of the TFC with trace effusion in the distal radioulnar joint. The scapholunate ligament and lunotriquetral ligaments appear grossly intact. IMPRESSION: 1. Moderate to severe tenosynovitis centered along the fourth dorsal extensor tendon compartment (ext ensor digitorum). Associated severe dorsal sided soft tissue swelling of the hand. Correlate for infe ctious or inflammatory etiologies. 2. Mild tenosynovitis involving the second and third dorsal extensor tendon compartments. This may be reactive or could reflect contiguous inflammation. 3. No abnormality of the underlying bone. No joint effusions seen. 4. Possible tiny pinhole through thickness tear involving the central portion of the TFC.
== END | disposition home or self-care (01) ==
LOC: RADMRIMAIN 09:44
PROVIDERS: ATTEND Orthopaedic Surgery Hand Surgery
DX: M65.842 Other synovitis and tenosynovitis, left hand (principal); R22.32 Localized swelling, mass and lump, left upper limb

== ENCOUNTER 2023-01-11 20:38 | Emergency (ER) | payer OTHER ==
[2023-01-11 21:22] VITALS: TEMP 98
[2023-01-11] MEDS ORDERED: KETOROLAC 15 MG/ML 1 ML VIAL IVP STA (22:00)
[2023-01-11] MEDS ORDERED: SODIUM CHLORIDE 0.9% 1,000 ML IV STA (22:01)
[2023-01-11 22:18] LABS: Basophils % (A) 0 %; Eosinophils # (A) 0.2 k/uL (0-0.7); Eosinophils % (A) 3 %; HCT 36.3 % (34.0-46.0); HGB 12.5 gm/dL (11.4-16.0); Lymphocytes # (A) 2.3 k/uL (1.0-4.8); Lymphocytes % (A) 38 %; MCH 32.4 pg (25.0-35.0); MCHC 34.3 g/dL (31.0-37.0); MCV 94.3 fL (80.0-100.0); Mean Platelet Volume 8.1; Monocytes # (A) 0.4 k/uL (0-1.0); Monocytes % (A) 6 %; Neutrophils # (A) 3.2 k/uL (1.3-7.7); Neutrophils % (A) 51 %; Platelet Count 219 k/uL (150-450); RBC 3.85 m/uL (3.80-5.40); RDW 12.6 % (11.5-15.5); WBC 6.2 k/uL (3.8-10.6)
[2023-01-11 22:28] LABS: ALT 16 U/L (4-34); AST 22 U/L (14-36); African American GFR (CKD) >90 (>60 ml/min/1.73 sqM); Albumin 4.1 g/dL (3.5-5.0); Alkaline Phosphatase 55 U/L (38-126); Anion Gap 10 mmol/L; Blood Urea Nitrogen 5 mg/dL (7-17); Calcium 8.9 mg/dL (8.4-10.2); Carbon Dioxide 23 mmol/L (22-30); Chloride 106 mmol/L (98-107); Glucose 118 mg/dL (74-99); Lipase 23 U/L (23-300); Non-African American GFR(CKD) >90 (>60 ml/min/1.73 sqM); Potassium 3.8 mmol/L (3.5-5.1); Sodium 139 mmol/L (137-145); Total Bilirubin 0.4 mg/dL (0.2-1.3)
[2023-01-12 00:22] LABS: Appearance,Urine Clear (Clear); Bilirubin,Urine Negative (Negative); Blood,Urine Small (Negative); Color,Urine Colorless; Glucose,Urine (UA) Negative (Negative); Ketones,Urine Negative (Negative); Leukocyte Esterase,Urine Negative (Negative); Nitrite,Urine Negative (Negative); PH, Urine 6.5 (5.0-8.0); Protein,Urine Negative (Negative); RBC,Urine 1 /hpf (0-5); Specific Gravity,Urine 1.025 (1.001-1.035); Urobilinogen,Urine <2.0 mg/dL (<2.0); WBC,Urine <1 /hpf (0-5)
[2023-01-12 00:39] LABS: Amphetamine Screen,Urine Not Detected (NotDetected); Barbiturate Screen,Urine Not Detected (NotDetected); Benzodiazepines Screen,Urine Not Detected (NotDetected); Cocaine Screen,Urine Not Detected (NotDetected); Methadone Screen, Urine Not Detected (NotDetected); Opiate Screen,Urine Detected (NotDetected); Oxycodone Screen, Urine Not Detected (NotDetected); Phencyclidine Screen,Urine Not Detected (NotDetected); Tricyclic Antidepressant,Urine Not Detected (NotDetected); Urn Cannabinoid Scrn Detected (NotDetected)
--- NOTE | 2023-01-12 01:32 | CT ---
EXAM: CT Abdomen and Pelvis With Intravenous Contrast CLINICAL HISTORY: CT Reason: wound buttock TECHNIQUE: Axial computed tomography images of the abdomen and pelvis with intravenous contrast. CTDI is 11.7 mGy and DLP is 483.2 mGy-cm. This CT exam was performed using one or more of the following dose reduction techniques: automated exposure control, adjustment of the mA and/or kV according to patient size, and/or use of iterative reconstruction technique. COMPARISON: August 13, 2020 FINDINGS: Lung bases: Unremarkable. No mass. No consolidation. ABDOMEN: Liver: Unremarkable. No mass. Gallbladder and bile ducts: The gallbladder is contracted but otherwise unremarkable. No calcified stones. No ductal dilation. Pancreas: Unremarkable. No mass. No ductal dilation. Spleen: Unremarkable. No splenomegaly. Adrenals: Unremarkable. No mass. Kidneys and ureters: Delayed images show normal renal contrast excretion bilaterally. Scarring in the mid right kidney. No hydronephrosis. Stomach and bowel: Unremarkable. No obstruction. No mucosal thickening. PELVIS: Appendix: The appendix is normal. Bowel loops are nondilated. No acute inflammatory changes are seen involving the bowel. No buttock wound or abscess is seen. Bladder: Unremarkable. No mass. Reproductive: There is a tampon in the vagina. ABDOMEN and PELVIS: Intraperitoneal space: Unremarkable. No free air. No significant fluid collection. Bones/joints: No acute fracture. No dislocation. Soft tissues: See above. Vasculature: Unremarkable. No abdominal aortic aneurysm. Lymph nodes: Unremarkable. No enlarged lymph nodes. IMPRESSION: The appendix is normal. Bowel loops are nondilated. No acute inflammatory changes are seen involving the bowel. No buttock wound or abscess is seen.
[2023-01-12] MEDS ORDERED: CEPHALEXIN 500 MG CAP PO STA (01:41)
[2023-01-12] MEDS ORDERED: SULFAMETHOX-TMP 800-160MG 1 EACH TAB PO STA (01:42)
--- NOTE | 2023-01-12 01:42 | ED ---
General Adult HPI - General Chief complaint: Skin/Abscess/Foreign Body Stated complaint: MRSA Time Seen by Provider: 01/11/23 21:43 Source: patient Mode of arrival: ambulatory Limitations: no limitations - History of Present Illness Initial comments: Patient is a 27 -year-old female who presents to the emergency department for wound on buttock. Patient noticed wound on her buttock today which she states has been drainingg green pus. She denies fever, chills, nausea, vomiting. No changes in bowel habits, urinary issues. Denies history of abscess and MRSA. Admits to history of IV drug use states her last use was 2 months ago. - Related Data Home Medications Medication Instructions Recorded Confirmed Albuterol Sulfate [Proair Hfa] 2 puff INHALATION RT-Q6H PRN 03/21/19 02/18/22 QUEtiapine [SEROquel] 50 mg PO HS 08/01/20 02/18/22 Sertraline HCl [Zoloft] 200 mg PO HS 08/01/20 02/18/22 QUEtiapine [SEROquel] 25 mg PO HS 08/13/20 02/18/22 Ergocalciferol (Vitamin D2) 1,250 mcg PO Q7D 02/18/22 02/18/22 [Drisdol (50,000 Iu)] Lisdexamfetamine Dimesylate 70 mg PO DAILY 02/18/22 02/18/22 [Vyvanse] OXcarbazepine [Trileptal] 150 mg PO HS 02/18/22 02/18/22 hydrOXYzine HCL [Atarax] 10 mg PO BID PRN 02/18/22 02/18/22 rOPINIRole HCL [Requip] 2 mg PO HS 02/18/22 02/18/22 Previous Rx's Medication Instructions Recorded Amoxic-Pot Clav 875-125Mg 1 tab PO BID 14 Days #28 tab 02/23/22 [Augmentin 875-125] Ibuprofen [Motrin] 800 mg PO Q8H #30 tab 02/23/22 Cephalexin [Keflex] 500 mg PO Q6HR 7 Days #28 cap 08/25/22 Sulfamethox-Tmp 800-160Mg [Bactrim 1 tab PO Q12HR 7 Days #14 tab 08/25/22 DS 800-160 mg] Cephalexin [Keflex] 500 mg PO Q6HR #28 cap 01/12/23 Ibuprofen [Motrin] 400 mg PO Q6HR PRN #30 tab 01/12/23 Sulfamethox-Tmp 800-160Mg [Bactrim 1 each PO Q12HR #14 tab 01/12/23 Ds] Allergies Allergy/AdvReac Type Severity Reaction Status Date / Time morphine AdvReac Nausea & Verified 01/11/23 21:14 Vomiting tramadol AdvReac Nausea & Verified 01/11/23 21:14 Vomiting Review of Systems ROS Statement: Those systems with pertinent positive or pertinent negative responses have been documented in the HPI. ROS Other: All systems not noted in ROS Statement are negative. Past Medical History Past Medical History: Asthma, Musculoskeletal Disorder Additional Past Medical History / Comment(s): chiari malformation, diverticulitis, DDD, herniated lumbar disc., receives toradol injections, states hx of palpitations, cysts on kidney, History of Any Multi-Drug Resistant Organisms: None Reported Past Surgical History: No Surgical Hx Reported Additional Past Surgical History / Comment(s): wisdom teeth removed, cyst removed from kidney. I&D lt hand abcess Apr 2021 Past Anesthesia/Blood Transfusion Reactions: Family History of Problems w/ Anesthesia Additional Past Anesthesia/Blood Transfusion Reaction / Comment(s): no anesthesia hx. emotional when waking up after wisdom teeth. Patients Mother gets PONV and combative. Past Psychological History: ADD/ADHD, Anxiety, Depression, Panic Disorder, PTSD Smoking Status: Current every day smoker Past Alcohol Use History: None Reported Past Drug Use History: Marijuana - Past Family History Mother Family Medical History: No Reported History General Exam Limitations: no limitations General appearance: alert Cardiovascular Exam: Present: regular rate, normal rhythm, normal heart sounds. Absent: systolic murmur, diastolic murmur, rubs, gallop, clicks GI/Abdominal exam: Present: soft, normal bowel sounds. Absent: distended, tenderness, guarding, rebound, rigid Rectal exam: Present: normal rectal tone, other (2 cm hollowed abscess right buttock ). Absent: black stool, bloody stool Neurological exam: Present: alert Psychiatric exam: Present: normal affect, normal mood Skin exam: Present: warm, dry, intact, normal color. Absent: rash Course Vital Signs 01/11/23 01/12/23 21:11 02:06 Temperature 98 F Pulse Rate 95 55 L Respiratory 18 17 Rate Blood Pressure 162/88 103/69 O2 Sat by Pulse 100 100 Oximetry Medical Decision Making - Medical Decision Making Was pt. sent in by a medical professional or institution (CARLOS Phillip, HUMAN RESOURCE MANAGER, urgent care, hospital, or detention...) When possible be specific @ -No Did you speak to anyone other than the patient for history (EMS, parent, family, police, friend...)? What history was obtained from this source @ -No Did you review nursing and triage notes (agree or disagree)? Why? @ -I reviewed and agree with nursing and triage notes Were old charts reviewed (outside hosp., previous admission, EMS record, old EKG, old radiological studies, urgent care reports/EKG's, detention records)? Report findings @ -No old charts were reviewed Differential Diagnosis (chest pain, altered mental status, abdominal pain women, abdominal pain men, vaginal bleeding, weakness, fever, dyspnea, syncope, headache, dizziness, GI bleed, back pain, seizure, CVA, palpatations, mental health)? @ -Abscess, cellulitis, fistula. T This list is not meant to be all-inclusive EKG interpreted by me (3pts min.). @ -As above X-rays interpreted by me (1pt min.). @ -None done CT interpreted by me (1pt min.). @ -No acute intra-abdominal process U/S interpreted by me (1pt. min.). @ -None done What testing was considered but not performed or refused? (CT, X-rays, U/S, labs)? Why? @ -None What meds were considered but not given or refused? Why? @ -None Did you discuss the management of the patient with other professionals (professionals i.e. CARLOS Phillip, HUMAN RESOURCE MANAGER, lab, RT, psych nurse, social scientist, welt rougher, teacher, commissary officer, case briefer)? Give summary @ -No Was smoking cessation discussed for >3mins.? @ -No Was critical care preformed (if so, how long)? @ -No Were there social determinants of health that impacted care today? How? (Homelessness, low income, unemployed, alcoholism, drug addiction, transportation, low edu. Level, literacy, decrease access to med. care, custodial, rehab)? @ -No Was there de-escalation of care discussed even if they declined (Discuss DNR or withdrawal of care, Hospice)? DNR status @ -No What co-morbidities impacted this encounter? (DM, HTN, Smoking, COPD, CAD, Cancer, CVA, ARF, Chemo, Hep., AIDS, mental health diagnosis, sleep apnea, morbid obesity)? @ -None Was patient admitted / discharged? Hospital course, mention meds given and route, prescriptions, significant lab abnormalities, going to OR and other pertinent info. @ -27-year-old presenting for wound on buttock. Patient has hollow abscess to right buttock. It is already draining it was cultured. No systemic symptoms or signs. Labs obtained no leukocytosis. CT of the abdomen and pelvis interpreted by myself show no acute process. Patient given Keflex and Bactrim for abscess she is in stable medical condition for discharge. We discussed return parameters Undiagnosed new problem with uncertain prognosis? @ -No Drug Therapy requiring intensive monitoring for toxicity (Heparin, Nitro, Insulin, Cardizem)? @ -No Were any procedures done? @ -No Diagnosis/symptom? @ -Abscess Acute, or Chronic, or Acute on Chronic? @ -Acute Uncomplicated (without systemic symptoms) or Complicated (systemic symptoms)? @ -Uncovered. Uncomplicated Side effects of treatment? @ -No Exacerbation, Progression, or Severe Exacerbation? @ -No Poses a threat to life or bodily function? How? (Chest pain, USA, [place], pneumonia, PE, COPD, DKA, ARF, appy, cholecystitis, CVA, Diverticulitis, Homicidal, Suicidal, threat to staff... and all critical care pts) @ -No Dr. Michelle is my attending - Lab Data Result diagrams: 01/11/23 22:01 01/11/23 22:01 Lab Results 01/11/23 01/11/23 01/11/23 Range/Units 22:01 22:01 22:01 WBC 6.2 (3.8-10.6) k/uL RBC 3.85 (3.80-5.40) m/uL Hgb 12.5 (11.4-16.0) gm/dL Hct 36.3 (34.0-46.0) % MCV 94.3 (80.0-100.0) fL MCH 32.4 (25.0-35.0) pg MCHC 34.3 (31.0-37.0) g/dL RDW 12.6 (11.5-15.5) % Plt Count 219 (150-450) k/uL MPV 8.1 Neutrophils % 51 % Lymphocytes % 38 % Monocytes % 6 % Eosinophils % 3 % Basophils % 0 % Neutrophils # 3.2 (1.3-7.7) k/uL Lymphocytes # 2.3 (1.0-4.8) k/uL Monocytes # 0.4 (0-1.0) k/uL Eosinophils # 0.2 (0-0.7) k/uL Basophils # 0.0 (0-0.2) k/uL Sodium (137-145) mmol/L Potassium (3.5-5.1) mmol/L Chloride (98-107) mmol/L Carbon Dioxide (22-30) mmol/L Anion Gap mmol/L BUN (7-17) mg/dL Creatinine (0.52-1.04) mg/dL Est GFR (CKD-EPI)AfAm (>60 ml/min/1.73 sqM) Est GFR (CKD-EPI)NonAf (>60 ml/min/1.73 sqM) Glucose (74-99) mg/dL Plasma Lactic Acid Davon (0.7-2.0) mmol/L Calcium (8.4-10.2) mg/dL Total Bilirubin (0.2-1.3) mg/dL AST (14-36) U/L ALT (4-34) U/L Alkaline Phosphatase (38-126) U/L Total Protein (6.3-8.2) g/dL Albumin (3.5-5.0) g/dL Lipase (23-300) U/L Urine Color Colorless Urine Appearance Clear (Clear) Urine pH 6.5 (5.0-8.0) Ur Specific [place] 1.025 (1.001-1.035) Urine Protein Negative (Negative) Urine Glucose (UA) Negative (Negative) Urine Ketones Negative (Negative) Urine Blood Small H (Negative) Urine Nitrite Negative (Negative) Urine Bilirubin Negative (Negative) Urine Urobilinogen <2.0 (<2.0) mg/dL Ur Leukocyte Esterase Negative (Negative) Urine RBC 1 (0-5) /hpf Urine WBC <1 (0-5) /hpf Urine HCG, Qual Not Detected (Not Detectd) Urine Opiates Screen Detected H (NotDetected) Ur Oxycodone Screen Not Detected (NotDetected) Urine Methadone Screen Not Detected (NotDetected) Ur Propoxyphene Screen Not Detected (NotDetected) Ur Barbiturates Screen Not Detected (NotDetected) U Tricyclic Antidepress Not Detected (NotDetected) Ur Phencyclidine Scrn Not Detected (NotDetected) Ur Amphetamines Screen Not Detected (NotDetected) U Methamphetamines Scrn Not Detected (NotDetected) U Benzodiazepines Scrn Not Detected (NotDetected) Urine Cocaine Screen Not Detected (NotDetected) U Marijuana (THC) Screen Detected H (NotDetected) 01/11/23 01/11/23 Range/Units 22:01 22:01 WBC (3.8-10.6) k/uL RBC (3.80-5.40) m/uL Hgb (11.4-16.0) gm/dL Hct (34.0-46.0) % MCV (80.0-100.0) fL MCH (25.0-35.0) pg MCHC (31.0-37.0) g/dL RDW (11.5-15.5) % Plt Count (150-450) k/uL MPV Neutrophils % % Lymphocytes % % Monocytes % % Eosinophils % % Basophils % % Neutrophils # (1.3-7.7) k/uL Lymphocytes # (1.0-4.8) k/uL Monocytes # (0-1.0) k/uL Eosinophils # (0-0.7) k/uL Basophils # (0-0.2) k/uL Sodium 139 (137-145) mmol/L Potassium 3.8 (3.5-5.1) mmol/L Chloride 106 (98-107) mmol/L Carbon Dioxide 23 (22-30) mmol/L Anion Gap 10 mmol/L BUN 5 L (7-17) mg/dL Creatinine 0.49 L (0.52-1.04) mg/dL Est GFR (CKD-EPI)AfAm >90 (>60 ml/min/1.73 sqM) Est GFR (CKD-EPI)NonAf >90 (>60 ml/min/1.73 sqM) Glucose 118 H (74-99) mg/dL Plasma Lactic Acid Davon 1.9 (0.7-2.0) mmol/L Calcium 8.9 (8.4-10.2) mg/dL Total Bilirubin 0.4 (0.2-1.3) mg/dL AST 22 (14-36) U/L ALT 16 (4-34) U/L Alkaline Phosphatase 55 (38-126) U/L Total Protein 7.0 (6.3-8.2) g/dL Albumin 4.1 (3.5-5.0) g/dL Lipase 23 (23-300) U/L Urine Color Urine Appearance (Clear) Urine pH (5.0-8.0) Ur Specific [place] (1.001-1.035) Urine Protein (Negative) Urine Glucose (UA) (Negative) Urine Ketones (Negative) Urine Blood (Negative) Urine Nitrite (Negative) Urine Bilirubin (Negative) Urine Urobilinogen (<2.0) mg/dL Ur Leukocyte Esterase (Negative) Urine RBC (0-5) /hpf Urine WBC (0-5) /hpf Urine HCG, Qual (Not Detectd) Urine Opiates Screen (NotDetected) Ur Oxycodone Screen (NotDetected) Urine Methadone Screen (NotDetected) Ur Propoxyphene Screen (NotDetected) Ur Barbiturates Screen (NotDetected) U Tricyclic Antidepress (NotDetected) Ur Phencyclidine Scrn (NotDetected) Ur Amphetamines Screen (NotDetected) U Methamphetamines Scrn (NotDetected) U Benzodiazepines Scrn (NotDetected) Urine Cocaine Screen (NotDetected) U Marijuana (THC) Screen (NotDetected) Disposition Clinical Impression: Abscess Disposition: HOME SELF-CARE Condition: Good Instructions (If sedation given, give patient instructions): Abscess (ED) Additional Instructions: Take medication as directed. Please follow-up with your primary care provider in 1-2 days. Return to the emergency department if you experience new, concerning, or worsening symptoms. Prescriptions: Sulfamethox-Tmp 800-160Mg [Bactrim Ds] 1 each PO Q12HR #14 tab Cephalexin [Keflex] 500 mg PO Q6HR #28 cap Ibuprofen [Motrin] 400 mg PO Q6HR PRN #30 tab PRN Reason: Pain Is patient prescribed a controlled substance at d/c from ED?: No Referrals: None,Stated [Primary Care Provider] - 1-2 days
[2023-01-12 02:08] VITALS: BP 103/69; PULSE 55; RESP 17
== END 2023-01-12 02:35 | disposition home or self-care (01) ==
LOC: EC 20:38
DX: L02.31 Cutaneous abscess of buttock (principal); B95.62 Methicillin resistant Staphylococcus aureus infection as the cause of diseases classified elsewhere; J45.909 Unspecified asthma, uncomplicated; F41.9 Anxiety disorder, unspecified; F32.A Depression, unspecified; F17.200 Nicotine dependence, unspecified, uncomplicated; F12.90 Cannabis use, unspecified, uncomplicated; Z88.5 Allergy status to narcotic agent; Z88.8 Allergy status to other drugs, medicaments and biological substances; Z79.899 Other long term (current) drug therapy
CPT/HCPCS: 36415; 80053; 83605; 83690; 85025; 81001; 81025; 80306; 87070; 87205; 87077; 87186; 74177; 99284; 96374; 96361; J1885; Q9967

== ENCOUNTER 2023-09-02 22:21 | Emergency (ER) | payer OTHER ==
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
[2023-09-02 23:12] VITALS: TEMP 99
[2023-09-03] MEDS: HYDROmorphone 1 MG/ML 1 ML SYRINGE IM STA (00:16)
--- NOTE | 2023-09-03 01:02 | CT ---
EXAM: CT Cervical Spine Without Intravenous Contrast CLINICAL HISTORY: ITS.REASON CT Reason: pain TECHNIQUE: Axial computed tomography images of the cervical spine without intravenous contrast. CTDI is 9.6 mGy and DLP is 273.1 mGy-cm. This CT exam was performed using one or more of the following dose reduction techniques: automated exposure control, adjustment of the mA and/or kV according to patient size, and/or use of iterative reconstruction technique. COMPARISON: No relevant prior studies available. FINDINGS: The vertebral body heights are maintained. The craniocervical junction is intact. The atlanto-dens interval is maintained. The dens is intact. There is no spondylolisthesis. The intervertebral disc spaces are preserved. There is no spinal canal or neural foraminal stenosis. Straightening of the cervical lordosis. Posterior spondylitic ridging at C5-C6. The unenhanced neck soft tissues are grossly unremarkable. The visualized lung apices are grossly clear. IMPRESSION: No acute fracture or subluxation of the cervical spine. Posterior spondylitic ridging at C5-C6.
[2023-09-03] MEDS: DEXAMETHASONE SOD PHOSPHATE 10 MG/ML 1 ML VIAL IM STA (01:58)
[2023-09-03] MEDS: KETOROLAC 15 MG/ML 1 ML VIAL IM STA (01:58)
[2023-09-03 02:53] VITALS: BP 109/75; PULSE 70; RESP 16
== END 2023-09-03 02:25 | disposition home or self-care (01) ==
LOC: EC 22:21
DX: G89.29 Other chronic pain (principal); M54.2 Cervicalgia; F17.200 Nicotine dependence, unspecified, uncomplicated; Z88.5 Allergy status to narcotic agent
CPT/HCPCS: 81025; 72125; 99284; 96372 ×3; J1100; J1170; J1885

== ENCOUNTER 2023-12-06 14:13 | Emergency (ER) | payer OTHER ==
--- NOTE | 2023-12-06 14:47 | ED ---
General Adult HPI - General Chief complaint: Back Pain/Injury Stated complaint: leg swelling Time Seen by Provider: 12/06/23 14:27 Source: patient, family, RN notes reviewed, old records reviewed Mode of arrival: ambulatory Limitations: no limitations - History of Present Illness Initial comments: Stable female presenting with bilateral flank pain, dysuria and foul-smelling urine. Symptoms have been present for the past several days. No fever or vom iting. She does have history of polycystic kidney disease. - Related Data Home Medications Medication Instructions Recorded Confirmed Albuterol Sulfate [Proair Hfa] 2 puff INHALATION RT-Q6H PRN 03/21/19 02/18/22 QUEtiapine [SEROquel] 50 mg PO HS 08/01/20 02/18/22 Sertraline HCl [Zoloft] 200 mg PO HS 08/01/20 02/18/22 QUEtiapine [SEROquel] 25 mg PO HS 08/13/20 02/18/22 Ergocalciferol (Vitamin D2) 1,250 mcg PO Q7D 02/18/22 02/18/22 [Drisdol (50,000 Iu)] Lisdexamfetamine Dimesylate 70 mg PO DAILY 02/18/22 02/18/22 [Vyvanse] OXcarbazepine [Trileptal] 150 mg PO HS 02/18/22 02/18/22 hydrOXYzine HCL [Atarax] 10 mg PO BID PRN 02/18/22 02/18/22 rOPINIRole HCL [Requip] 2 mg PO HS 02/18/22 02/18/22 Previous Rx's Medication Instructions Recorded Amoxic-Pot Clav 875-125Mg 1 tab PO BID 14 Days #28 tab 02/23/22 [Augmentin 875-125] Ibuprofen [Motrin] 800 mg PO Q8H #30 tab 02/23/22 Cephalexin [Keflex] 500 mg PO Q6HR 7 Days #28 cap 08/25/22 Sulfamethox-Tmp 800-160Mg [Bactrim 1 tab PO Q12HR 7 Days #14 tab 08/25/22 DS 800-160 mg] Cephalexin [Keflex] 500 mg PO Q6HR #28 cap 01/12/23 Ibuprofen [Motrin] 400 mg PO Q6HR PRN #30 tab 01/12/23 Sulfamethox-Tmp 800-160Mg [Bactrim 1 each PO Q12HR #14 tab 01/12/23 Ds] Ketorolac [Toradol] 10 mg PO Q6HR PRN #12 tab 09/03/23 methylPREDNISolone Dose Pack 4 mg PO DIRECTED #1 packet 09/03/23 [Medrol Dose Pack] HYDROcodone/APAP 5-325MG [Jameson 1 tab PO Q6HR PRN #12 tab 12/06/23 5-325] Allergies Allergy/AdvReac Type Severity Reaction Status Date / Time morphine AdvReac Nausea & Verified 09/02/23 22:35 Vomiting tramadol AdvReac Nausea & Verified 09/02/23 22:35 Vomiting Review of Systems ROS Statement: Those systems with pertinent positive or pertinent negative responses have been documented in the HPI. ROS Other: All systems not noted in ROS Statement are negative. Past Medical History Past Medical History: Asthma, Musculoskeletal Disorder Additional Past Medical History / Comment(s): chiari malformation, diverticulitis, DDD, herniated lumbar disc., receives toradol injections, states hx of palpitations, cysts on kidney, History of Any Multi-Drug Resistant Organisms: MRSA Date of last positivie culture/infection: 01/11/23 MDRO Source:: Buttock Past Surgical History: No Surgical Hx Reported Additional Past Surgical History / Comment(s): wisdom teeth removed, cyst removed from kidney. I&D lt hand abcess Apr 2021 Past Anesthesia/Blood Transfusion Reactions: Family History of Problems w/ Anesthesia Additional Past Anesthesia/Blood Transfusion Reaction / Comment(s): no anesthesia hx. emotional when waking up after wisdom teeth. Patients Mother gets PONV and combative. Past Psychological History: ADD/ADHD, Anxiety, Depression, Panic Disorder, PTSD Smoking Status: Current every day smoker Past Alcohol Use History: None Reported Past Drug Use History: Marijuana - Past Family History Mother Family Medical History: No Reported History General Exam Limitations: no limitations General appearance: alert, in no apparent distress Head exam: Present: atraumatic, normocephalic Eye exam: Present: normal appearance, PERRL ENT exam: Present: normal exam Neck exam: Present: normal inspection. Absent: tenderness, meningismus Respiratory exam: Present: normal lung sounds bilaterally. Absent: respiratory distress, wheezes Cardiovascular Exam: Present: regular rate, normal rhythm GI/Abdominal exam: Present: soft. Absent: distended, tenderness, guarding Extremities exam: Present: calf tenderness (Bilateral). Absent: pedal edema Neurological exam: Present: alert, oriented X3, CN II-XII intact. Absent: motor sensory deficit Psychiatric exam: Present: normal affect, normal mood Skin exam: Present: warm, dry, intact Course Vital Signs 12/06/23 12/06/23 12/06/23 14:19 14:59 16:29 Temperature 98.6 F 99.2 F 98.8 F Pulse Rate 110 H 100 83 Respiratory 20 18 18 Rate Blood Pressure 121/74 126/76 120/84 O2 Sat by Pulse 99 100 98 Oximetry 12/06/23 17:25 Temperature Pulse Rate 99 Respiratory 17 Rate Blood Pressure 122/76 O2 Sat by Pulse 99 Oximetry Medical Decision Making - Medical Decision Making Was pt. sent in by a medical professional or institution (CARLOS Phillip, ELEVATOR INSTALLER APPRENTICE, urgent care, hospital, or prison...) When possible be specific @ -[No] Did you speak to anyone other than the patient for history (EMS, parent, family, police, friend...)? What history was obtained from this source @ -[No] Did you review nursing and triage notes (agree or disagree)? Why? @ -[I reviewed and agree with nursing and triage notes] Were old charts reviewed (outside hosp., previous admission, EMS record, old EKG, old radiological studies, urgent care reports/EKG's, prison records)? Report findings @ -[No old charts were reviewed] Was pt. sent in by a medical professional or institution (CARLOS Phillip, ELEVATOR INSTALLER APPRENTICE, urgent c are, hospital, or prison...) When possible be specific @ Did you speak to anyone other than the patient for history (EMS, parent, family, police, friend...)? What history was obtained from this source @ -[No] Did you review nursing and triage notes (agree or disagree)? Why? @ -[I reviewed and agree with nursing and triage notes] Were old charts reviewed (outside hosp., previous admission, EMS record, old EKG, old radiological studies, urgent care reports/EKG's, prison records)? Report findings @ -[No old charts were reviewed] Differential Abdominal Pain Women: Appendicitis, Cholecystitis, diverticulosis, ischemic bowel, pancreatitis, hepatitis, UTI, gastroenteritis, AAA, incarcerated hernia, bowel obstruction, constipation, inflammatory bowel, hepatitis, peptic ulcer disease, splenic infarction, perforated viscus, vulvitis, ovarian torsion, PID, kidney stone, placenta abruption, this is not meant to be an all-inclusive list EKG interpreted by me (3pts min.). @ -[As above] X-rays interpreted by me (1pt min.). @ -[None done] CT interpreted by me (1pt min.). @ -[None done] U/S interpreted by me (1pt. min.). @ -[None done] What testing was considered but not performed or refused? (CT, X-rays, U/S, labs)? Why? @ -[None] What meds were considered but not given or refused? Why? @ -[None] Did you discuss the management of the patient with other professionals (professionals i.e. , PA, ELEVATOR INSTALLER APPRENTICE, lab, RT, psych nurse, rn social work, drum sander setter, teacher, county records management officer, case briefer)? Give summary @ -[No] Was smoking cessation discussed for >3mins.? @ -[No] Was critical care preformed (if so, how long)? @ -[No] Were there social determinants of health that impacted care today? How? (Homelessness, low income, unemployed, alcoholism, drug addiction, transporta tion, low edu. Level, literacy, decrease access to med. care, alf, rehab)? @ -[No] Was there de-escalation of care discussed even if they declined (Discuss DNR or withdrawal of care, Hospice)? DNR status @ -[No] What co-morbidities impacted this encounter? (DM, HTN, Smoking, COPD, CAD, Cancer, CVA, ARF, Chemo, Hep., AIDS, mental health diagnosis, sleep apnea, morbid obesity)? @ -Polycystic kidney disease Was patient admitted / discharged? Hospital course, mention meds given and route, prescriptions, significant lab abnormalities, going to OR and other pertinent info. @ -[28-year-old female presenting with back pain, dysuria urinary frequency. Patient does not have urinary tract infection on testing. She has normal CBC, normal CMP. She feels better after pain medication and does admit that she has been out of her Jameson for approximately 1 month. Undiagnosed new problem with uncertain prognosis? @ -[No] Drug Therapy requiring intensive monitoring for toxicity (Heparin, Nitro, In sulin, Cardizem)? @ -[No] Were any procedures done? @ -[No] Diagnosis/symptom? @bilateral flank pain Acute, or Chronic, or Acute on Chronic? @ -acute Uncomplicated (without systemic symptoms) or Complicated (systemic symptoms)? @ -[default] Side effects of treatment? @ -[No] Exacerbation, Progression, or Severe Exacerbation? @ -[No] Poses a threat to life or bodily function? How? (Chest pain, USA, [place], pneumonia, PE, COPD, DKA, ARF, appy, cholecystitis, CVA, Diverticulitis, Homicidal, Suici nadira, threat to staff... and all critical care pts) @ -[No] - Lab Data Result diagrams: 12/06/23 15:10 12/06/23 15:10 Lab Results 12/06/23 12/06/23 12/06/23 Range/Units 15:10 15:10 15:10 WBC 5.0 (3.8-10.6) k/uL RBC 4.18 (3.80-5.40) m/uL Hgb 12.2 (11.4-16.0) gm/dL Hct 37.2 (34.0-46.0) % MCV 89.1 (80.0-100.0) fL MCH 29.1 (25.0-35.0) pg MCHC 32.7 (31.0-37.0) g/dL RDW 12.3 (11.5-15.5) % Plt Count 269 (150-450) k/uL MPV 7.1 Neutrophils % 70 % Lymphocytes % 17 % Monocytes % 9 % Eosinophils % 1 % Basophils % 0 % Neutrophils # 3.5 (1.3-7.7) k/uL Lymphocytes # 0.8 L (1.0-4.8) k/uL Monocytes # 0.5 (0-1.0) k/uL Eosinophils # 0.0 (0-0.7) k/uL Basophils # 0.0 (0-0.2) k/uL PT 10.4 (10.0-12.5) sec INR 0.9 (<1.2) APTT 27.5 (22.0-30.0) sec Sodium (137-145) mmol/L Potassium (3.5-5.1) mmol/L Chloride (98-107) mmol/L Carbon Dioxide (22-30) mmol/L Anion Gap mmol/L BUN (7-17) mg/dL Creatinine (0.52-1.04) mg/dL Est GFR (CKD-EPI)AfAm (>60 ml/min/1.73 sqM) Est GFR (CKD-EPI)NonAf (>60 ml/min/1.73 sqM) Glucose (74-99) mg/dL Calcium (8.4-10.2) mg/dL Magnesium (1.6-2.3) mg/dL Total Bilirubin (0.2-1.3) mg/dL AST (14-36) U/L ALT (4-34) U/L Alkaline Phosphatase (38-126) U/L NT-Pro-B Natriuret Pep pg/mL Total Protein (6.3-8.2) g/dL Albumin (3.5-5.0) g/dL Urine Color Colorless Urine Appearance Clear (Clear) Urine pH 7.0 (5.0-8.0) Ur Specific [place] 1.003 (1.001-1.035) Urine Protein Negative (Negative) Urine Glucose (UA) Negative (Negative) Urine Ketones Negative (Negative) Urine Blood Small H (Negative) Urine Nitrite Negative (Negative) Urine Bilirubin Negative (Negative) Urine Urobilinogen <2.0 (<2.0) mg/dL Ur Leukocyte Esterase Negative (Negative) Urine RBC 1 (0-5) /hpf Urine WBC <1 (0-5) /hpf Ur Squamous Epith Cells 1 (0-4) /hpf Urine Bacteria Rare H (None) /hpf 12/06/23 Range/Units 15:10 WBC (3.8-10.6) k/uL RBC (3.80-5.40) m/uL Hgb (11.4-16.0) gm/dL Hct (34.0-46.0) % MCV (80.0-100.0) fL MCH (25.0-35.0) pg MCHC (31.0-37.0) g/dL RDW (11.5-15.5) % Plt Count (150-450) k/uL MPV Neutrophils % % Lymphocytes % % Monocytes % % Eosinophils % % Basophils % % Neutrophils # (1.3-7.7) k/uL Lymphocytes # (1.0-4.8) k/uL Monocytes # (0-1.0) k/uL Eosinophils # (0-0.7) k/uL Basophils # (0-0.2) k/uL PT (10.0-12.5) sec INR (<1.2) APTT (22.0-30.0) sec Sodium 139 (137-145) mmol/L Potassium 4.1 (3.5-5.1) mmol/L Chloride 108 H (98-107) mmol/L Carbon Dioxide 24 (22-30) mmol/L Anion Gap 7 mmol/L BUN 6 L (7-17) mg/dL Creatinine 0.54 (0.52-1.04) mg/dL Est GFR (CKD-EPI)AfAm >90 (>60 ml/min/1.73 sqM) Est GFR (CKD-EPI)NonAf >90 (>60 ml/min/1.73 sqM) Glucose 99 (74-99) mg/dL Calcium 9.7 (8.4-10.2) mg/dL Magnesium 2.1 (1.6-2.3) mg/dL Total Bilirubin 0.3 (0.2-1.3) mg/dL AST 18 (14-36) U/L ALT 12 (4-34) U/L Alkaline Phosphatase 106 (38-126) U/L NT-Pro-B Natriuret Pep 772 pg/mL Total Protein 7.6 (6.3-8.2) g/dL Albumin 4.2 (3.5-5.0) g/dL Urine Color Urine Appearance (Clear) Urine pH (5.0-8.0) Ur Specific [place] (1.001-1.035) Urine Protein (Negative) Urine Glucose (UA) (Negative) Urine Ketones (Negative) Urine Blood (Negative) Urine Nitrite (Negative) Urine Bilirubin (Negative) Urine Urobilinogen (<2.0) mg/dL Ur Leukocyte Esterase (Negative) Urine RBC (0-5) /hpf Urine WBC (0-5) /hpf Ur Squamous Epith Cells (0-4) /hpf Urine Bacteria (None) /hpf Disposition Clinical Impression: Flank pain Disposition: HOME SELF-CARE Condition: Fair Instructions (If sedation given, give patient instructions): Acute Low Back Pain (ED) Prescriptions: HYDROcodone/APAP 5-325MG [Jameson 5-325] 1 tab PO Q6HR PRN #12 tab PRN Reason: Pain Is patient prescribed a controlled substance at d/c from ED?: No Referrals: None,Stated [Primary Care Provider] - 1-2 days Time of Disposition: 18:38
[2023-12-06 15:50] LABS: Appearance,Urine Clear (Clear); Bacteria,Urine Rare /hpf; Bilirubin,Urine Negative (Negative); Blood,Urine Small (Negative); Color,Urine Colorless; Glucose,Urine (UA) Negative (Negative); Ketones,Urine Negative (Negative); Leukocyte Esterase,Urine Negative (Negative); Nitrite,Urine Negative (Negative); Protein,Urine Negative (Negative); RBC,Urine 1 /hpf (0-5); Specific Gravity,Urine 1.003 (1.001-1.035); Squamous Epithelial Cell,Urine 1 /hpf (0-4); Urobilinogen,Urine <2.0 mg/dL (<2.0); WBC,Urine <1 /hpf (0-5)
[2023-12-06 16:07] LABS: Basophils % (A) 0 %; Eosinophils % (A) 1 %; HCT 37.2 % (34.0-46.0); HGB 12.2 gm/dL (11.4-16.0); Lymphocytes # (A) 0.8 k/uL (1.0-4.8); Lymphocytes % (A) 17 %; MCH 29.1 pg (25.0-35.0); MCHC 32.7 g/dL (31.0-37.0); MCV 89.1 fL (80.0-100.0); Mean Platelet Volume 7.1; Monocytes # (A) 0.5 k/uL (0-1.0); Monocytes % (A) 9 %; Neutrophils # (A) 3.5 k/uL (1.3-7.7); Neutrophils % (A) 70 %; Platelet Count 269 k/uL (150-450); RBC 4.18 m/uL (3.80-5.40); RDW 12.3 % (11.5-15.5)
[2023-12-06 16:19] LABS: INR 0.9 (<1.2); Partial Thromboplastin Time 27.5 sec (22.0-30.0); Prothrombin Time 10.4 sec (10.0-12.5)
[2023-12-06 16:25] LABS: ALT 12 U/L (4-34); AST 18 U/L (14-36); African American GFR (CKD) >90 (>60 ml/min/1.73 sqM); Albumin 4.2 g/dL (3.5-5.0); Alkaline Phosphatase 106 U/L (38-126); Anion Gap 7 mmol/L; Blood Urea Nitrogen 6 mg/dL (7-17); Calcium 9.7 mg/dL (8.4-10.2); Carbon Dioxide 24 mmol/L (22-30); Chloride 108 mmol/L (98-107); Glucose 99 mg/dL (74-99); Magnesium 2.1 mg/dL (1.6-2.3); Non-African American GFR(CKD) >90 (>60 ml/min/1.73 sqM); Potassium 4.1 mmol/L (3.5-5.1); Sodium 139 mmol/L (137-145); Total Bilirubin 0.3 mg/dL (0.2-1.3); Total Protein 7.6 g/dL (6.3-8.2)
[2023-12-06 16:33] LABS: NT-Pro-B-Type Natriuretic Pept 772 pg/mL
[2023-12-06] MEDS: HYDROmorphone 0.5 MG/0.5 ML SYRINGE IVP STA (17:27)
[2023-12-06 19:19] VITALS: BP 112/80; PULSE 105; RESP 16; TEMP 98.9
[2023-12-06] MEDS: HYDROcodone/APAP 5-325MG 1 EACH TAB PO STA (19:19)
== END 2023-12-06 19:27 | disposition home or self-care (01) ==
LOC: EC 14:13
DX: Q61.3 Polycystic kidney, unspecified (principal); F17.200 Nicotine dependence, unspecified, uncomplicated; Z88.5 Allergy status to narcotic agent; Z88.8 Allergy status to other drugs, medicaments and biological substances
CPT/HCPCS: 36415; 83880; 80053; 83735; 85025; 85610; 85730; 81001; 81025; 99283; 96374; J1170

== ENCOUNTER 2024-05-08 19:29 | Emergency (ER) | payer OTHER ==
[2024-05-08 19:49] VITALS: RESP 16; TEMP 98.8
--- NOTE | 2024-05-08 19:54 | ED ---
General Adult HPI - General Source: patient Mode of arrival: ambulatory Limitations: no limitations <Baldomero Paniagua - Last Filed: 05/08/24 19:54> - General Source: patient, RN notes reviewed, old records reviewed Mode of arrival: ambulatory Limitations: no limitations - History of Present Illness -: hour(s) Location: head, face Radiation: non-radiation Severity scale (1-10): 4 Consistency: constant Improves with: none Worsens with: none Treatments Prior to Arrival: none <Tyson Stoner - Last Filed: 05/08/24 21:44> - General Chief complaint: Neck Pain/Injury Stated complaint: Neck Pain Time Seen by Provider: 05/08/24 19:54 - History of Present Illness Initial comments: 28-year-old female with history of Chiari malformation. Patient reports that today she was stretching and cracked her neck. States that in that moment she had sharp pain in her neck up into her jaw bilaterally. She has since had a headache. She is also experiencing "brain fog". (Baldomero Paniagua) This is a 28 female with history of Chiari malformation felt her neck crack af ter stretching then began to have pain in her neck jaw lower neck upper back down her arms. Since had a headache and a little bit of feeling out of it. Patient has had recent MRI, no other acute complaints or injuries no neurological findings or deficits patient is able to ambulate, no nausea vomi ting no recent trauma otherwise (Tyson Stoner) - Related Data Home Medications Medication Instructions Recorded Confirmed Albuterol Sulfate [Proair Hfa] 2 puff INHALATION RT-Q6H PRN 03/21/19 02/18/22 QUEtiapine [SEROquel] 50 mg PO HS 08/01/20 02/18/22 Sertraline HCl [Zoloft] 200 mg PO HS 08/01/20 02/18/22 QUEtiapine [SEROquel] 25 mg PO HS 08/13/20 02/18/22 Ergocalciferol (Vitamin D2) 1,250 mcg PO Q7D 02/18/22 02/18/22 [Drisdol (50,000 Iu)] Lisdexamfetamine Dimesylate 70 mg PO DAILY 02/18/22 02/18/22 [Vyvanse] OXcarbazepine [Trileptal] 150 mg PO HS 02/18/22 02/18/22 hydrOXYzine HCL [Atarax] 10 mg PO BID PRN 02/18/22 02/18/22 rOPINIRole HCL [Requip] 2 mg PO HS 02/18/22 02/18/22 Previous Rx's Medication Instructions Recorded Amoxic-Pot Clav 875-125Mg 1 tab PO BID 14 Days #28 tab 02/23/22 [Augmentin 875-125] Ibuprofen [Motrin] 800 mg PO Q8H #30 tab 02/23/22 Cephalexin [Keflex] 500 mg PO Q6HR 7 Days #28 cap 08/25/22 Sulfamethox-Tmp 800-160Mg [Bactrim 1 tab PO Q12HR 7 Days #14 tab 08/25/22 DS 800-160 mg] Cephalexin [Keflex] 500 mg PO Q6HR #28 cap 01/12/23 Ibuprofen [Motrin] 400 mg PO Q6HR PRN #30 tab 01/12/23 Sulfamethox-Tmp 800-160Mg [Bactrim 1 each PO Q12HR #14 tab 01/12/23 Ds] Ketorolac [Toradol] 10 mg PO Q6HR PRN #12 tab 09/03/23 methylPREDNISolone Dose Pack 4 mg PO DIRECTED #1 packet 09/03/23 [Medrol Dose Pack] HYDROcodone/APAP 5-325MG [Waldo 1 tab PO Q6HR PRN #12 tab 12/06/23 5-325] Allergies Allergy/AdvReac Type Severity Reaction Status Date / Time morphine AdvReac Nausea & Verified 05/08/24 19:49 Vomiting tramadol AdvReac Nausea & Verified 05/08/24 19:49 Vomiting Review of Systems ROS Other: All systems not noted in ROS Statement are negative. <Baldomero Paniagua - Last Filed: 05/08/24 19:54> ROS Other: All systems not noted in ROS Statement are negative. <Tyson Stoner - Last Filed: 05/08/24 21:44> ROS Statement: Those systems with pertinent positive or pertinent negative responses have been documented in the HPI. Past Medical History Past Medical History: Asthma, Musculoskeletal Disorder Additional Past Medical History / Comment(s): chiari malformation, diverticulitis, DDD, herniated lumbar disc., receives toradol injections, states hx of palpitations, cysts on kidney, History of Any Multi-Drug Resistant Organisms: MRSA Date of last positivie culture/infection: 01/11/23 MDRO Source:: Buttock Past Surgical History: No Surgical Hx Reported Additional Past Surgical History / Comment(s): wisdom teeth removed, cyst removed from kidney. I&D lt hand abcess Apr 2021 Past Anesthesia/Blood Transfusion Reactions: Family History of Problems w/ Anesthesia Additional Past Anesthesia/Blood Transfusion Reaction / Comment(s): no anesthesia hx. emotional when waking up after wisdom teeth. Patients Mother gets PONV and combative. Past Psychological History: ADD/ADHD, Anxiety, Depression, Panic Disorder, PTSD Smoking Status: Current every day smoker Past Alcohol Use History: None Reported Past Drug Use History: Marijuana - Past Family History Mother Family Medical History: No Reported History <Baldomero Paniagua - Last Filed: 05/08/24 19:54> General Exam Limitations: no limitations <Baldomero Paniagua - Last Filed: 05/08/24 19:54> General appearance: alert, in no apparent distress Head exam: Present: atraumatic, normocephalic, normal inspection Eye exam: Present: normal appearance, PERRL, EOMI. Absent: scleral icterus, conjunctival injection, periorbital swelling ENT exam: Present: normal exam, mucous membranes moist Neck exam: Present: normal inspection. Absent: tenderness, meningismus, lymphadenopathy Respiratory exam: Present: normal lung sounds bilaterally. Absent: respiratory distress, wheezes, rales, rhonchi, stridor Cardiovascular Exam: Present: regular rate, normal rhythm, normal heart sounds. Absent: systolic murmur, diastolic murmur, rubs, gallop, clicks GI/Abdominal exam: Present: soft, normal bowel sounds. Absent: distended, tenderness, guarding, rebound, rigid Extremities exam: Present: normal inspection, full ROM, normal capillary refill. Absent: tenderness, pedal edema, joint swelling, calf tenderness Back exam: Present: normal inspection Neurological exam: Present: alert, oriented X3, CN II-XII intact Psychiatric exam: Present: normal affect, normal mood Skin exam: Present: warm, dry, intact, normal color. Absent: rash <Tyson Stoner - Last Filed: 05/08/24 21:44> - General Exam Comments Initial Comments: Visual Physical Exam Vital signs reviewed General: Well-appearing, nontoxic, no acute distress. Head: Normocephalic, atraumatic Eyes: PERRLA, EOMI ENT: Airway patent Chest: Nonlabored breathing Skin: No visual rash, normal skin tone Neuro: Alert and oriented 3 Musculoskeletal: No gross abnormalities (Baldomero Paniagua) Course <Tyson Stoner - Last Filed: 05/08/24 21:44> Vital Signs 05/08/24 19:44 Temperature 98.8 F Pulse Rate 115 H Respiratory 16 Rate Blood Pressure 120/75 O2 Sat by Pulse 98 Oximetry - Reevaluation(s) Reevaluation #1: 05/08/24 21:42 Medical records reviewed (Tyson Stoner) Reevaluation #2: 05/08/24 21:42 Patient symptoms u improved (Tyson Stoner) Reevaluation #3: 05/08/24 21:43 Patient informed of results questions answered (Tyson Stoner) Reevaluation #4: Was pt. sent in by a medical professional or institution (, PA, DENTAL NURSE, urgent care, hospital, or penitentiary...) When possible be specific @ -no Did you speak to anyone other than the patient for history (EMS, parent, family, police, friend...)? What history was obtained from this source @ -no Did you review nursing and triage notes (agree or disagree)? Why? @ -agree Are old charts reviewed (outside hosp., previous admission, EMS record, old EKG, old radiological studies, urgent care reports/EKG's, penitentiary records)? Report findings @ -yes Differential Diagnosis (chest pain, altered mental status, abdominal pain women, abdominal pain men, vaginal bleeding, weakness, fever, dyspnea, syncope, headache, dizziness, GI bleed, back pain, seizure, CVA, palpatations, mental health, musculoskeletal)? @ -prior EKG interpreted by me (3pts min.). @ -yes X-rays interpreted by me (1pt min.). @ -yes negative for acute disease CT interpreted by me (1pt min.). @ -no U/S interpreted by me (1pt. min.). @ -no What testing was considered but not performed or refused? (CT, X-rays, U/S, labs)? Why? @ -none What meds were considered but not given or refused? Why? @ -none Did you discuss the management of the patient with other professionals (professionals i.e. , PA, DENTAL NURSE, lab, RT, psych nurse, social insurance analyst, faucet polisher, teacher, commercial loan collection officer, pillowcase cutter)? Give summary @ -no Was smoking cessation discussed for >3mins.? @ -no Was critical care preformed (if so, how long)? @ -no Were there social determinants of health that impacted care today? How? (Homelessness, low income, unemployed, alcoholism, drug addiction, transportation, low edu. Level, literacy, decrease access to med. care, assisted, rehab)? @ -none Was there de-escalation of care discussed even if they declined (Discuss DNR or withdrawal of care, Hospice)? DNR status @ -no What co-morbidities impacted this encounter? (DM, HTN, Smoking, COPD, CAD, Cancer, CVA, ARF, Chemo, Hep., AIDS, mental health diagnosis, sleep apnea, morbid obesity)? @ -none Was patient admitted / discharged? Hospital course, mention meds given and route, prescriptions, significant lab abnormalities, going to OR and other pertinent info. @ - Undiagnosed new problem with uncertain prognosis? @ -no Drug Therapy requiring intensive monitoring for toxicity (Heparin, Nitro, Insulin, Cardizem)? @ -no Were any procedures done? @ -no Diagnosis/symptom? @ - Acute, or Chronic, or Acute on Chronic? @ -Acute Uncomplicated (without systemic symptoms) or Complicated (systemic symptoms)? @ -Complicated Side effects of treatment? @ -no Exacerbation, Progression, or Severe Exacerbation? @ -exacerbation Poses a threat to life or bodily function? How? (Chest pain, USA, IA, pneumonia, PE, COPD, DKA, ARF, appy, cholecystitis, CVA, Diverticulitis, Homicidal, Suicidal, threat to staff... and all critical care pts) @ -yes (Tyson Stoner) Reevaluation #5: Differential Headache: Migraine, tension, cluster, carbon monoxide, central venous thrombosis, pension karma temporal arteritis, acute closure glaucoma, intercranial hemorrhage, mastoiditis, sinusitis, head injury, this is not meant to be an all-inclusive list. (Tyson Stoner) Medical Decision Making <Baldomero Paniagua - Last Filed: 05/08/24 19:54> - Lab Data Result diagrams: 05/08/24 21:01 05/08/24 21:01 - Radiology Data Radiology results: report reviewed (CT brain is negative for acute changes Mary Anne malformation noted), image reviewed <Tyson Stoner - Last Filed: 05/08/24 21:44> - Medical Decision Making I performed the quick note portion of this visit, electronically signed Baldomero Paniagua PA-C (Baldomero Paniagua) 28 female to the ER for evaluation of headache neck pain shoulder pain after stretching, no acute neurological findings on exam. Patient has no significant changes on CT and will follow-up with neurosurgery as directed (Tyson Stoner) - Lab Data Lab Results 05/08/24 05/08/24 05/08/24 Range/Units 21:01 21:01 21:01 WBC 14.4 H (3.8-10.6) k/uL RBC 4.36 (3.80-5.40) m/uL Hgb 13.3 (11.4-16.0) gm/dL Hct 39.5 (34.0-46.0) % MCV 90.5 (80.0-100.0) fL MCH 30.5 (25.0-35.0) pg MCHC 33.7 (31.0-37.0) g/dL RDW 13.1 (11.5-15.5) % Plt Count 307 (150-450) k/uL MPV 7.3 Neutrophils % 88 % Lymphocytes % 9 % Monocytes % 2 % Eosinophils % 1 % Basophils % 0 % Neutrophils # 12.7 H (1.3-7.7) k/uL Lymphocytes # 1.3 (1.0-4.8) k/uL Monocytes # 0.2 (0-1.0) k/uL Eosinophils # 0.1 (0-0.7) k/uL Basophils # 0.0 (0-0.2) k/uL Sodium 139 (137-145) mmol/L Potassium 3.9 (3.5-5.1) mmol/L Chloride 103 (98-107) mmol/L Carbon Dioxide 23 (22-30) mmol/L Anion Gap 13 mmol/L BUN 13 (7-17) mg/dL Creatinine 0.71 (0.52-1.04) mg/dL Est GFR (CKD-EPI)AfAm >90 (>60 ml/min/1.73 sqM) Est GFR (CKD-EPI)NonAf >90 (>60 ml/min/1.73 sqM) Glucose 114 H (74-99) mg/dL Calcium 9.9 (8.4-10.2) mg/dL Phosphorus 3.7 (2.5-4.5) mg/dL Magnesium 2.0 (1.6-2.3) mg/dL Total Bilirubin 0.3 (0.2-1.3) mg/dL AST 16 (14-36) U/L ALT 12 (4-34) U/L Alkaline Phosphatase 81 (38-126) U/L Total Protein 7.8 (6.3-8.2) g/dL Albumin 4.6 (3.5-5.0) g/dL Urine Color Light Yellow Urine Appearance Cloudy H (Clear) Urine pH 6.0 (5.0-8.0) Ur Specific [place] 1.015 (1.001-1.035) Urine Protein Negative (Negative) Urine Glucose (UA) Negative (Negative) Urine Ketones Negative (Negative) Urine Blood Moderate H (Negative) Urine Nitrite Negative (Negative) Urine Bilirubin Negative (Negative) Urine Urobilinogen <2.0 (<2.0) mg/dL Ur Leukocyte Esterase Negative (Negative) Urine RBC 5 (0-5) /hpf Urine WBC 5 (0-5) /hpf Ur Squamous Epith Cells 6 H (0-4) /hpf Urine Bacteria Rare H (None) /hpf Urine Mucus Few H (None) /hpf Disposition <Baldomero Paniagua - Last Filed: 05/08/24 19:54> Is patient prescribed a controlled substance at d/c from ED?: No Time of Disposition: 21:45 <Tyson Stoner - Last Filed: 05/08/24 21:44> Clinical Impression: Strain of neck muscle, Cervical radiculopathy, Chiari malformation Disposition: HOME SELF-CARE Condition: Fair Instructions (If sedation given, give patient instructions): Cervical Radiculopathy (ED), Acute Neck Pain (ED) Referrals: None,Stated [Primary Care Provider] - 1-2 days
[2024-05-08] MEDS: ONDANSETRON 4 MG/2 ML VIAL IVP STA (21:02)
[2024-05-08] MEDS: HYDROmorphone 1 MG/ML 1 ML SYRINGE IVP STA (21:02)
[2024-05-08 21:13] LABS: Basophils % (A) 0 %; Eosinophils # (A) 0.1 k/uL (0-0.7); Eosinophils % (A) 1 %; HCT 39.5 % (34.0-46.0); HGB 13.3 gm/dL (11.4-16.0); Lymphocytes # (A) 1.3 k/uL (1.0-4.8); Lymphocytes % (A) 9 %; MCH 30.5 pg (25.0-35.0); MCHC 33.7 g/dL (31.0-37.0); MCV 90.5 fL (80.0-100.0); Mean Platelet Volume 7.3; Monocytes # (A) 0.2 k/uL (0-1.0); Monocytes % (A) 2 %; Neutrophils # (A) 12.7 k/uL (1.3-7.7); Neutrophils % (A) 88 %; Platelet Count 307 k/uL (150-450); RBC 4.36 m/uL (3.80-5.40); RDW 13.1 % (11.5-15.5); WBC 14.4 k/uL (3.8-10.6)
[2024-05-08 21:19] LABS: Appearance,Urine Cloudy (Clear); Bacteria,Urine Rare /hpf; Bilirubin,Urine Negative (Negative); Blood,Urine Moderate (Negative); Color,Urine Light Yellow; Glucose,Urine (UA) Negative (Negative); Ketones,Urine Negative (Negative); Leukocyte Esterase,Urine Negative (Negative); Mucus,Urine Few /hpf; Nitrite,Urine Negative (Negative); Protein,Urine Negative (Negative); RBC,Urine 5 /hpf (0-5); Specific Gravity,Urine 1.015 (1.001-1.035); Squamous Epithelial Cell,Urine 6 /hpf (0-4); Urobilinogen,Urine <2.0 mg/dL (<2.0); WBC,Urine 5 /hpf (0-5)
--- NOTE | 2024-05-08 21:19 | CT ---
EXAMINATION TYPE: CT brain wo con DATE OF EXAM: 05/08/2024 9:12 PM COMPARISON: None. CLINICAL INDICATION: Female, 28 years old with history of storm, headache TECHNIQUE: Brain: Axial CT images of the brain were obtained with coronal and sagittal reformats created and rev iewed. Contrast used: None. Oral contrast used: None. CT DLP: 1095.7 mGycm, Automated exposure control for dose reduction was used. FINDINGS: Brain: Extra-axial spaces: No abnormal extra-axial fluid collections. Ventricular system: Within normal limits Cerebral parenchyma: No acute intraparenchymal hemorrhage or mass effect. The rodgers-white junction is well differentiated. Cerebellum: Cerebellar tonsils extend below the foramen magnum up to 12 mm. There is sagging brainste m also thought to be present. Mass effect: No evidence of midline shift. Intracranial vasculature: unremarkable Soft tissues: Normal. Calvarium/osseous structures: No depressed skull fracture. Paranasal sinuses and mastoid air cells: Mild scattered paranasal sinus disease. Visualized orbits: Orbital contents are intact. IMPRESSION: No acute intracranial process. Low lying cerebellar tonsils compatible with degenerative malformation with sagging brainstem correla te with prior MRIs and consider further evaluation with MRI brain. [facility], , 05/08/2024 9:16 PM
[2024-05-08] MEDS: SODIUM CHLORIDE 0.9% 1,000 ML IV STA (21:24)
[2024-05-08] MEDS: KETOROLAC 15 MG/ML 1 ML VIAL IVP STA (21:26)
[2024-05-08 21:35] LABS: ALT 12 U/L (4-34); AST 16 U/L (14-36); African American GFR (CKD) >90 (>60 ml/min/1.73 sqM); Albumin 4.6 g/dL (3.5-5.0); Alkaline Phosphatase 81 U/L (38-126); Anion Gap 13 mmol/L; Blood Urea Nitrogen 13 mg/dL (7-17); Calcium 9.9 mg/dL (8.4-10.2); Carbon Dioxide 23 mmol/L (22-30); Chloride 103 mmol/L (98-107); Glucose 114 mg/dL (74-99); Non-African American GFR(CKD) >90 (>60 ml/min/1.73 sqM); Phosphorus 3.7 mg/dL (2.5-4.5); Potassium 3.9 mmol/L (3.5-5.1); Sodium 139 mmol/L (137-145); Total Bilirubin 0.3 mg/dL (0.2-1.3); Total Protein 7.8 g/dL (6.3-8.2)
[2024-05-08 22:26] LABS: Influenza A Not Detected (Not Detectd); Influenza B Not Detected (Not Detectd); RSV Not Detected (Not Detectd)
[2024-05-08 22:59] VITALS: BP 115/66; PULSE 82
== END 2024-05-08 22:19 | disposition home or self-care (01) ==
LOC: EC 19:29
DX: S16.1XXA Strain of muscle, fascia and tendon at neck level, initial encounter (principal); M54.12 Radiculopathy, cervical region; Q07.00 Arnold-Chiari syndrome without spina bifida or hydrocephalus; F17.200 Nicotine dependence, unspecified, uncomplicated; Z88.5 Allergy status to narcotic agent; X58.XXXA Exposure to other specified factors, initial encounter
CPT/HCPCS: 36415; 80053; 83735; 84100; 85025; 81001; 87636; 70450; 99284; 96374; 96375; 96361; J2405; J1171; J1885

== ENCOUNTER 2024-08-14 10:53 | Emergency (ER) | payer OTHER ==
[2024-08-14 10:58] VITALS: TEMP 97.8
[2024-08-14 11:45] LABS: Basophils # (A) 0.12 10*3/uL (0.00-0.10); Basophils % (A) 0.5 %; Eosinophils # (A) 0.17 10*3/uL (0.04-0.35); Eosinophils % (A) 0.7 %; HCT 44.4 % (37.2-46.3); Lymphocytes # (A) 2.05 10*3/uL (0.90-5.00); Lymphocytes % (A) 8.6 %; MCH 30.7 pg (27.0-32.0); MCHC 33.8 g/dL (32.0-37.0); MCV 90.8 fL (80.0-97.0); Mean Platelet Volume 9.7 fL (9.5-12.2); Monocytes # (A) 0.53 10*3/uL (0.20-1.00); Monocytes % (A) 2.2 %; Neutrophils # (A) 20.92 10*3/uL (1.80-7.70); Neutrophils % (A) 87.3 %; Platelet Count 335 10*3/uL (140-440); RBC 4.89 10*6/uL (4.10-5.20); RDW 12.9 % (11.5-14.5); WBC 23.95 10*3/uL (4.50-10.00)
[2024-08-14] MEDS: methylPREDNISolone SOD SUCCI 125 MG/2 ML VIAL IV STA (11:50)
[2024-08-14] MEDS: METOCLOPRAMIDE 5 MG/ML 2 ML VIAL IVP STA (11:51)
[2024-08-14] MEDS: SODIUM CHLORIDE 0.9% 1,000 ML IV ONE (11:52)
[2024-08-14] MEDS: HYDROmorphone 0.5 MG/0.5 ML SYRINGE IVP STA ×2 (11:53→14:50)
[2024-08-14 11:58] LABS: ALT 14 U/L (4-34); AST 21 U/L (14-36); African American GFR (CKD) >90 (>60 ml/min/1.73 sqM); Albumin 5.1 g/dL (3.5-5.0); Alkaline Phosphatase 73 U/L (38-126); Anion Gap 15 mmol/L; Blood Urea Nitrogen 6 mg/dL (7-17); Calcium 10.2 mg/dL (8.4-10.2); Carbon Dioxide 21 mmol/L (22-30); Chloride 105 mmol/L (98-107); Glucose 82 mg/dL (74-99); Non-African American GFR(CKD) >90 (>60 ml/min/1.73 sqM); Sodium 141 mmol/L (137-145); Total Bilirubin 0.6 mg/dL (0.2-1.3); Total Protein 8.9 g/dL (6.3-8.2)
[2024-08-14] MEDS: diphenhydrAMINE 50 MG/ML 1 ML VIAL IVP STA (11:59)
--- NOTE | 2024-08-14 12:27 | CT ---
EXAMINATION TYPE: CT brain wo con CT DLP: 1229.4 mGycm, Automated exposure control for dose reduction was used. DATE OF EXAM: 08/14/2024 12:19 PM COMPARISON: CT brain 05/08/2024 CLINICAL INDICATION:Female, 29 years old with history of migraine. hx of arnold chiari, headache, hx of chiari malformation TECHNIQUE: Brain: Multiple axial CT images of the brain were obtained without IV contrast. . Coronal and sagitta l reformats reviewed. FINDINGS: Brain: Extra-axial spaces: No abnormal extra-axial fluid collections. Ventricular system: Within normal limits Cerebral parenchyma: No acute intraparenchymal hemorrhage or mass effect. The rodgers-white junction is well differentiated. Cerebellum: There is again low-lying cerebellar tonsils extending below the foramen magnum approximat thang 14 mm, previously 12 mm. Mass effect: No evidence of midline shift. Intracranial vasculature: unremarkable Soft tissues: Normal. Calvarium/osseous structures: No depressed skull fracture. Paranasal sinuses and mastoid air cells: Clear Visualized orbits: Orbital contents are intact. IMPRESSION: 1. No acute intracranial process. 2. Low-lying cerebellar tonsils redemonstrated compatible with Chiari I malformation. [facility], , 08/14/2024 12:25 PM
[2024-08-14] MEDS: KETOROLAC 15 MG/ML 1 ML VIAL IVP STA (13:21)
[2024-08-14] MEDS: HYDROmorphone 1 MG/ML 1 ML SYRINGE IVP STA (13:22)
[2024-08-14 13:25] VITALS: RESP 20
[2024-08-14 13:43] LABS: Appearance,Urine Cloudy (Clear); Bacteria,Urine Rare /hpf; Bilirubin,Urine Negative (Negative); Blood,Urine Large (Negative); Color,Urine Light Red; Glucose,Urine (UA) Negative (Negative); Ketones,Urine Negative (Negative); Leukocyte Esterase,Urine Trace (Negative); Mucus,Urine Moderate /hpf; Nitrite,Urine Negative (Negative); PH, Urine 6.5 (5.0-8.0); Protein,Urine 1+ (Negative); RBC,Urine 11 /hpf (0-5); Specific Gravity,Urine 1.009 (1.001-1.035); Squamous Epithelial Cell,Urine 14 /hpf (0-4); Urobilinogen,Urine <2.0 mg/dL (<2.0); WBC,Urine 9 /hpf (0-5)
--- NOTE | 2024-08-14 13:51 | XR ---
EXAMINATION TYPE: XR chest 2V DATE OF EXAM: 08/14/2024 1:45 PM COMPARISON: 03/21/2019 CLINICAL INDICATION: Female, 29 years old with history of cough, , TECHNIQUE: PA and lateral views FINDINGS: The cardiomediastinal silhouette, aorta, and pulmonary vasculature are within normal limits. Lungs an d pleural spaces are clear. Right-sided nipple ring. IMPRESSION: No acute cardiopulmonary process. [facility], , 08/14/2024 1:48 PM
[2024-08-14 14:00] LABS: Influenza A Not Detected (Not Detectd); Influenza B Not Detected (Not Detectd); RSV Not Detected (Not Detectd)
[2024-08-14 14:46] VITALS: BP 101/59; PULSE 69
[2024-08-14 14:50] LABS: Basophils # (A) 0.04 10*3/uL (0.00-0.10); Basophils % (A) 0.3 %; Eosinophils # (A) 0.05 10*3/uL (0.04-0.35); Eosinophils % (A) 0.4 %; HCT 38.7 % (37.2-46.3); HGB 13.6 g/dL (12.0-15.0); Lymphocytes # (A) 1.23 10*3/uL (0.90-5.00); Lymphocytes % (A) 9.1 %; MCH 31.3 pg (27.0-32.0); MCHC 35.1 g/dL (32.0-37.0); MCV 89.2 fL (80.0-97.0); Mean Platelet Volume 9.5 fL (9.5-12.2); Monocytes # (A) 0.34 10*3/uL (0.20-1.00); Monocytes % (A) 2.5 %; Neutrophils # (A) 11.82 10*3/uL (1.80-7.70); Neutrophils % (A) 87.3 %; Platelet Count 278 10*3/uL (140-440); RBC 4.34 10*6/uL (4.10-5.20); RDW 12.8 % (11.5-14.5); WBC 13.54 10*3/uL (4.50-10.00)
[2024-08-14] MEDS: SODIUM CHLORIDE 0.9% 500 ML 500 ML IV ONE (14:50)
--- NOTE | 2024-08-14 15:25 | ED ---
General Adult HPI - General Chief complaint: Headache Stated complaint: Headache Time Seen by Provider: 08/14/24 11:32 Source: patient, RN notes reviewed, old records reviewed Mode of arrival: ambulatory Limitations: no limitations - History of Present Illness Initial comments: Patient is a 29-year-old female presents emergency department complaining of migraines as well as nausea and vomiting. States it has been ongoing for a few days but worse today. Has a history of chronic migraines as well as Chiari malformation. States she is due to see a pain specialist next week however does not believe she can wait presents for further evaluation at this time. Denies any chest pain or shortness of breath, denies any fevers or chills. States she is not . Has no urinary complaints. Presents for further evaluation at this time. Headache is a typical migraine for her. No red flag symptoms. - Related Data Home Medications Medication Instructions Recorded Confirmed Albuterol Sulfate [Proair Hfa] 2 puff INHALATION RT-Q6H PRN 03/21/19 02/18/22 QUEtiapine [SEROquel] 50 mg PO HS 08/01/20 02/18/22 Sertraline HCl [Zoloft] 200 mg PO HS 08/01/20 02/18/22 QUEtiapine [SEROquel] 25 mg PO HS 08/13/20 02/18/22 Ergocalciferol (Vitamin D2) 1,250 mcg PO Q7D 02/18/22 02/18/22 [Drisdol (50,000 Iu)] Lisdexamfetamine Dimesylate 70 mg PO DAILY 02/18/22 02/18/22 [Vyvanse] OXcarbazepine [Trileptal] 150 mg PO HS 02/18/22 02/18/22 hydrOXYzine HCL [Atarax] 10 mg PO BID PRN 02/18/22 02/18/22 rOPINIRole HCL [Requip] 2 mg PO HS 02/18/22 02/18/22 Previous Rx's Medication Instructions Recorded Amoxic-Pot Clav 875-125Mg 1 tab PO BID 14 Days #28 tab 02/23/22 [Augmentin 875-125] Ibuprofen [Motrin] 800 mg PO Q8H #30 tab 02/23/22 Cephalexin [Keflex] 500 mg PO Q6HR 7 Days #28 cap 08/25/22 Sulfamethox-Tmp 800-160Mg [Bactrim 1 tab PO Q12HR 7 Days #14 tab 08/25/22 DS 800-160 mg] Cephalexin [Keflex] 500 mg PO Q6HR #28 cap 01/12/23 Ibuprofen [Motrin] 400 mg PO Q6HR PRN #30 tab 01/12/23 Sulfamethox-Tmp 800-160Mg [Bactrim 1 each PO Q12HR #14 tab 01/12/23 Ds] Ketorolac [Toradol] 10 mg PO Q6HR PRN #12 tab 09/03/23 methylPREDNISolone Dose Pack 4 mg PO DIRECTED #1 packet 09/03/23 [Medrol Dose Pack] HYDROcodone/APAP 5-325MG [[place] 1 tab PO Q6HR PRN #12 tab 12/06/23 5-325] Allergies Allergy/AdvReac Type Severity Reaction Status Date / Time morphine AdvReac Nausea & Verified 08/14/24 10:57 Vomiting tramadol AdvReac Nausea & Verified 08/14/24 10:57 Vomiting Review of Systems ROS Statement: Those systems with pertinent positive or pertinent negative responses have been documented in the HPI. Review of Systems: CONST: Denies fever EYES: Denies blurry vision ENT: Denies nasal congestion C/V: Denies Chest pain RESP: Denies shortness of breath GI: Denies abdominal pain : Denies dysuria SKIN: Denies rash. MSK: Denies joint pain. NEURO: Endorses migraine ROS Other: All systems not noted in ROS Statement are negative. Past Medical History Past Medical History: Asthma, Musculoskeletal Disorder Additional Past Medical History / Comment(s): chiari malformation, diverticulitis, DDD, herniated lumbar disc., receives toradol injections, states hx of palpitations, cysts on kidney, History of Any Multi-Drug Resistant Organisms: MRSA Date of last positivie culture/infection: 01/11/23 MDRO Source:: Buttock Past Surgical History: No Surgical Hx Reported Additional Past Surgical History / Comment(s): wisdom teeth removed, cyst removed from kidney. I&D lt hand abcess Apr 2021 Past Anesthesia/Blood Transfusion Reactions: Family History of Problems w/ Anesthesia Additional Past Anesthesia/Blood Transfusion Reaction / Comment(s): no anesthesia hx. emotional when waking up after wisdom teeth. Patients Mother gets PONV and combative. Past Psychological History: ADD/ADHD, Anxiety, Depression, Panic Disorder, PTSD Smoking Status: Current every day smoker Past Alcohol Use History: None Reported Past Drug Use History: Marijuana - Past Family History Mother Family Medical History: No Reported History General Exam - General Exam Comments Initial Comments: General: Appears in no acute distress. HEAD: Normal with no signs of head trauma. EYES: PERRLA, EOMI, conjunctiva normal, no discharge. Pupils 3 mm and equal bilaterally. ENT: Hearing grossly intact, normal oropharynx. RESPIRATORY: Clear breath sounds bilaterally. No wheezes, rales, or rhonchi. C/V: Regular rate and rhythm. S1 and S2 auscultated, no edema, peripheral pulses 2+ and intact throughout ABD: Abd is soft, nontender, nondistended EXT: No obvious deformity. SKIN: No rashes or lesions observed on exposed skin. NEURO: Alert and oriented x 4. Cranial nerves II-XII intact. No focal sensory or strength deficits. GCS 15. NIH is 0. Limitations: no limitations Course Vital Signs 08/14/24 08/14/24 08/14/24 10:54 13:24 13:55 Temperature 97.8 F Pulse Rate 117 H 68 67 Respiratory 18 20 20 Rate Blood Pressure 108/68 101/65 107/69 O2 Sat by Pulse 100 98 98 Oximetry 08/14/24 14:46 Temperature Pulse Rate 69 Respiratory 20 Rate Blood Pressure 101/59 O2 Sat by Pulse 98 Oximetry Medical Decision Making - Medical Decision Making Was pt. sent in by a medical professional or institution (, PA, HIDE AND SKIN CLASSER, urgent care, hospital, or half-way...) When possible be specific @ -No Did you speak to anyone other than the patient for history (EMS, parent, family, police, friend...)? What history was obtained from this source @ -No Did you review nursing and triage notes (agree or disagree)? Why? @ -I reviewed and agree with nursing and triage notes Were old charts reviewed (outside hosp., previous admission, EMS record, old EKG, old radiological studies, urgent care reports/EKG's, half-way records)? Report findings @ -No old charts were reviewed Differential Diagnosis (chest pain, altered mental status, abdominal pain women, abdominal pain men, vaginal bleeding, weakness, fever, dyspnea, syncope, headache, dizziness, GI bleed, back pain, seizure, CVA, palpatations, mental health, musculoskeletal)? @ -Migraine headache, viral syndrome, dehydration. This list is not all inclusive. EKG interpreted by me (3pts min.). @ -None done X-rays interpreted by me (1pt min.). @ -Chest x-ray shows no obvious acute cardiopulmonary process. CT interpreted by me (1pt min.). @ -CT brain shows no obvious acute intracranial process. Cerebellar tonsils redemonstrated. Spikemaking Supervisor Chiari malformation. U/S interpreted by me (1pt. min.). @ -None done What testing was considered but not performed or refused? (CT, X-rays, U/S, labs)? Why? @ -None What meds were considered but not given or refused? Why? @ -None Did you discuss the management of the patient with other professionals (professionals i.e. , PA, HIDE AND SKIN CLASSER, lab, RT, psych nurse, geriatric social worker, study specialist, teacher, environmental compliance officer, senior case manager)? Give summary @ -No Was smoking cessation discussed for >3mins.? @ -No Was critical care preformed (if so, how long)? @ -No Were there social determinants of health that impacted care today? How? (Homelessness, low income, unemployed, alcoholism, drug addiction, transportation, low edu. Level, literacy, decrease access to med. care, half-way, rehab)? @ -No Was there de-escalation of care discussed even if they declined (Discuss DNR or withdrawal of care, Hospice)? DNR status @ -No What co-morbidities impacted this encounter? (DM, HTN, Smoking, COPD, CAD, Cancer, CVA, ARF, Chemo, Hep., AIDS, mental health diagnosis, sleep apnea, morbid obesity)? @ -None Was patient admitted / discharged? Hospital course, mention meds given and route, prescriptions, significant lab abnormalities, going to OR and other pertinent info. @ -Patient presents for acute on chronic migraines with nausea and vomiting. We will obtain CT imaging and she states that this migraine is slightly different than her baseline with the nausea. Denies any other acute symptoms at this time. Vital signs within acceptable limits. Given migraine cocktail. Laboratory studies returned remarkable for leukocytosis of 23 of unknown etiology. Remainder the workup unremarkable including contaminated urine. CT imaging shows no obvious acute process. At this time I did recommend we also obtain viral swab and chest x-ray and additional fluids. Will repeat blood work. Patient was in agreement this plan. Viral swabs negative. Chest x-ray unremarkable. Repeat CBC shows a leukocytosis that is nearly improved to normal, currently at 13. I discussed results with patient. Headache is improved. She is feeling improved. She will be discharged home at this time. Strict return precautions discussed. I instructed the patient to follow up with their PCP in the next 1-3 days. I explained that the patient should return to the emergency department if they experience any worsening symptoms. Strict return precautions were discussed with the patient. The patient expressed understanding of these instructions. I answered all questions that the patient had. The patient was discharged home in good condition with their prescriptions and follow up information. Undiagnosed new problem with uncertain prognosis? @ -No Drug Therapy requiring intensive monitoring for toxicity (Heparin, Nitro, Insulin, Cardizem)? @ -No Were any procedures done? @ -No Diagnosis/symptom? @ -Migraine, dehydration Acute, or Chronic, or Acute on Chronic? @ -Acute Uncomplicated (without systemic symptoms) or Complicated (systemic symptoms)? @ -Uncomplicated Side effects of treatment? @ -No Exacerbation, Progression, or Severe Exacerbation? @ -No Poses a threat to life or bodily function? How? (Chest pain, USA, OR, pneumonia, PE, COPD, DKA, ARF, appy, cholecystitis, CVA, Diverticulitis, Homicidal, Suicidal, threat to staff... and all critical care pts) @ -Unlikely at this time - Lab Data Result diagrams: 08/14/24 14:45 08/14/24 11:42 Lab Results 08/14/24 08/14/24 08/14/24 Range/Units 11:42 11:42 13:16 WBC 23.95 H (4.50-10.00) 10*3/uL RBC 4.89 (4.10-5.20) 10*6/uL Hgb 15.0 (12.0-15.0) g/dL Hct 44.4 (37.2-46.3) % MCV 90.8 (80.0-97.0) fL MCH 30.7 (27.0-32.0) pg MCHC 33.8 (32.0-37.0) g/dL Plt Count 335 (140-440) 10*3/uL MPV 9.7 (9.5-12.2) fL Immature Gran % (Auto) 0.7 % Neutrophils % 87.3 % Lymphocytes % 8.6 % Monocytes % 2.2 % Eosinophils % 0.7 % Basophils % 0.5 % Immature Gran # 0.16 H (0.00-0.04) 10*3/uL Neutrophils # 20.92 H (1.80-7.70) 10*3/uL Lymphocytes # 2.05 (0.90-5.00) 10*3/uL Monocytes # 0.53 (0.20-1.00) 10*3/uL Eosinophils # 0.17 (0.04-0.35) 10*3/uL Basophils # 0.12 H (0.00-0.10) 10*3/uL Sodium 141 (137-145) mmol/L Potassium 4.0 (3.5-5.1) mmol/L Chloride 105 (98-107) mmol/L Carbon Dioxide 21 L (22-30) mmol/L Anion Gap 15 mmol/L BUN 6 L (7-17) mg/dL Creatinine 0.60 (0.52-1.04) mg/dL Est GFR (CKD-EPI)AfAm >90 (>60 ml/min/1.73 sqM) Est GFR (CKD-EPI)NonAf >90 (>60 ml/min/1.73 sqM) Glucose 82 (74-99) mg/dL Calcium 10.2 (8.4-10.2) mg/dL Total Bilirubin 0.6 (0.2-1.3) mg/dL AST 21 (14-36) U/L ALT 14 (4-34) U/L Alkaline Phosphatase 73 (38-126) U/L Total Protein 8.9 H (6.3-8.2) g/dL Albumin 5.1 H (3.5-5.0) g/dL Urine Color Light Red Urine Appearance Cloudy H (Clear) Urine pH 6.5 (5.0-8.0) Ur Specific [place] 1.009 (1.001-1.035) Urine Protein 1+ H (Negative) Urine Glucose (UA) Negative (Negative) Urine Ketones Negative (Negative) Urine Blood Large H (Negative) Urine Nitrite Negative (Negative) Urine Bilirubin Negative (Negative) Urine Urobilinogen <2.0 (<2.0) mg/dL Ur Leukocyte Esterase Trace H (Negative) Urine RBC 11 H (0-5) /hpf Urine WBC 9 H (0-5) /hpf Ur Squamous Epith Cells 14 H (0-4) /hpf Urine Bacteria Rare H (None) /hpf Urine Mucus Moderate H (None) /hpf Influenza Type A (PCR) (Not Detectd) Influenza Type B (PCR) (Not Detectd) RSV (PCR) (Not Detectd) SARS-CoV-2 (PCR) (Not Detectd) 08/14/24 08/14/24 Range/Units 13:16 14:45 WBC 13.54 H (4.50-10.00) 10*3/uL RBC 4.34 (4.10-5.20) 10*6/uL Hgb 13.6 (12.0-15.0) g/dL Hct 38.7 (37.2-46.3) % MCV 89.2 (80.0-97.0) fL MCH 31.3 (27.0-32.0) pg MCHC 35.1 (32.0-37.0) g/dL Plt Count 278 (140-440) 10*3/uL MPV 9.5 (9.5-12.2) fL Immature Gran % (Auto) 0.4 % Neutrophils % 87.3 % Lymphocytes % 9.1 % Monocytes % 2.5 % Eosinophils % 0.4 % Basophils % 0.3 % Immature Gran # 0.06 H (0.00-0.04) 10*3/uL Neutrophils # 11.82 H (1.80-7.70) 10*3/uL Lymphocytes # 1.23 (0.90-5.00) 10*3/uL Monocytes # 0.34 (0.20-1.00) 10*3/uL Eosinophils # 0.05 (0.04-0.35) 10*3/uL Basophils # 0.04 (0.00-0.10) 10*3/uL Sodium (137-145) mmol/L Potassium (3.5-5.1) mmol/L Chloride (98-107) mmol/L Carbon Dioxide (22-30) mmol/L Anion Gap mmol/L BUN (7-17) mg/dL Creatinine (0.52-1.04) mg/dL Est GFR (CKD-EPI)AfAm (>60 ml/min/1.73 sqM) Est GFR (CKD-EPI)NonAf (>60 ml/min/1.73 sqM) Glucose (74-99) mg/dL Calcium (8.4-10.2) mg/dL Total Bilirubin (0.2-1.3) mg/dL AST (14-36) U/L ALT (4-34) U/L Alkaline Phosphatase (38-126) U/L Total Protein (6.3-8.2) g/dL Albumin (3.5-5.0) g/dL Urine Color Urine Appearance (Clear) Urine pH (5.0-8.0) Ur Specific [place] (1.001-1.035) Urine Protein (Negative) Urine Glucose (UA) (Negative) Urine Ketones (Negative) Urine Blood (Negative) Urine Nitrite (Negative) Urine Bilirubin (Negative) Urine Urobilinogen (<2.0) mg/dL Ur Leukocyte Esterase (Negative) Urine RBC (0-5) /hpf Urine WBC (0-5) /hpf Ur Squamous Epith Cells (0-4) /hpf Urine Bacteria (None) /hpf Urine Mucus (None) /hpf Influenza Type A (PCR) Not Detected (Not Detectd) Influenza Type B (PCR) Not Detected (Not Detectd) RSV (PCR) Not Detected (Not Detectd) SARS-CoV-2 (PCR) Not Detected (Not Detectd) Disposition Clinical Impression: Migraine, Dehydration Disposition: HOME SELF-CARE Condition: Good Instructions (If sedation given, give patient instructions): Acute Headache (ED) Is patient prescribed a controlled substance at d/c from ED?: No Referrals: None,Stated [Primary Care Provider] - 1-2 days Time of Disposition: 15:24
[2024-08-14] MEDS: ONDANSETRON 4 MG ODT STARTER PACK 2 TAB BTL PO STA (15:30)
[2024-08-14] MEDS: ACET/COD 300 MG/30 MG STARTER PACK 6 TAB BTL PO STA (15:30)
== END 2024-08-14 15:34 | disposition home or self-care (01) ==
LOC: EC 10:53
DX: G43.909 Migraine, unspecified, not intractable, without status migrainosus (principal); E86.0 Dehydration; Z88.5 Allergy status to narcotic agent; F17.200 Nicotine dependence, unspecified, uncomplicated
CPT/HCPCS: 36415; 80053; 85025; 81001; 87636; 71046; 70450; 99284; 96374; 96375; 96376; 96361; J1200; J2765; J1171 ×2; J1885; S0119; J2919